=== PATIENT | male | born 1950 | race Caucasian/White ===

== ENCOUNTER 2018-03-02 11:15 | Outpatient (CLI) | payer MEDICARE ==
[2018-03-02] MEDS ORDERED: Iopamidol 370 76% 100 ML VIAL ONE (14:52)
--- NOTE | 2018-03-02 15:52 | PET ---
PET CT: 03/02/18 HISTORY: 68-year-old male with localized swelling, mass, lump in the neck; dysphagia. Head and neck cancer avery gnosis and initial staging. TECHNIQUE: PET scan with CT attenuation correction was performed from the vertex through the proximal thighs fol lowing the intravenous administration of 12.3 millicuries of 15-fludeoxyglucose in the right hand. Im aging was performed after an uptake interval of 59 minutes. COMPARISON/CORRELATION: None. FINDINGS: There is a hypermetabolic mass in the right supraglottic region with an SUV of 21. Associated hyperme tabolic lymph nodes are seen in the neck with an SUV of 5.7 in the right level II, 10.2 in the right level III, 3.7 in the right level Va and 4.7 in the left level III lymph nodes. There is also increased linear uptake in the posterior aspect of the tongue base with an SUV of 4.6. No gonzalo hypermetabolism is seen in the chest, axillae, abdomen or pelvis. No hypermetabolic pulmonar y nodules, liver, adrenals, or skeletal lesions are seen. There is physiologic activity in the GI and tracts and the brain. The CT scan used for attenuation correction demonstrates no evidence of pleural effusions or ascites. IMPRESSION: 1. 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 2. Increased linear uptake in the posterior tongue base should be evaluated with direct visualiz ation. POS: [facility]
--- NOTE | 2018-03-02 16:08 | CT ---
CONTRAST ENHANCED CT IMAGES SOFT TISSUE NECK 03/02/18 HISTORY: Neck swelling. Contrast enhanced CT of the soft tissue neck obtained. IV contrast was given. There is an area of ulceration and enhancement in the right piriform sinus extending inferiorly into the right supraglottic region. This lesion has definite area of enhancement and ulceration. Extensive bilateral lymphadenopathy seen. There is approximately 1.8 cm partially necrotic right level II (ju gulodigastric) lymph node. Additional right level Va 1.7 cm lymph node with central necrosis also see n. Additional abnormal lymphadenopathy seen in the left level III lymph node chain. Additionally mild ly enlarged left level II lymph node is also seen. IMPRESSION: Ulcerated pharyngeal mucosal based right piriform sinus and supraglottic mass with definite right lev el II and level Va abnormal partially necrotic pathologic lymph nodes. Additional enlarged lymph node s also seen in the left level II and level III lymph node chains. There is also bilateral carotid proximal ICA atherosclerotic plaques concerning for carotid disease. POS: [facility]
== END 2018-03-02 11:16 | disposition home or self-care (01) ==
LOC: PET 11:15 → CT 11:16
PROVIDERS: ATTEND Otolaryngology Plastic Surgery within the Head & Neck
DX: R22.1 Localized swelling, mass and lump, neck (principal); R13.12 Dysphagia, oropharyngeal phase; R22.0 Localized swelling, mass and lump, head; H92.01 Otalgia, right ear; R49.0 Dysphonia; J39.2 Other diseases of pharynx; I65.23 Occlusion and stenosis of bilateral carotid arteries; C32.2 Malignant neoplasm of subglottis; C77.0 Secondary and unspecified malignant neoplasm of lymph nodes of head, face and neck
CPT/HCPCS: 70491; 78815; 82565; A9552

== ENCOUNTER 2018-03-27 12:28 | Outpatient (CLI) | payer MEDICARE | END 2018-03-27 12:29 | disposition home or self-care (01) | LOC: LABBT 12:28 | PROVIDERS: ATTEND Surgery | DX: Z01.810 Encounter for preprocedural cardiovascular examination (principal); C76.0 Malignant neoplasm of head, face and neck | CPT/HCPCS: 93005; 93010 ==

== ENCOUNTER 2018-03-31 09:32 | Observation (INO) | payer MEDICARE ==
[2018-03-27 12:31] VITALS: BMI 28.5
[2018-03-31] MEDS ORDERED: CEFAZOLIN/Water 2 GM/20 ML SYRINGE ONE (09:57)
[2018-03-31] MEDS ORDERED: Bupivacaine/Epinephrine 0.25% 30 ML VIAL ONE (11:28)
[2018-03-31] MEDS ORDERED: Lidocaine 2% PF 5 ML VIAL ONE (11:28)
[2018-03-31] MEDS ORDERED: PROPOFOL 20 ML ONE (11:58)
[2018-03-31] MEDS ORDERED: Fentanyl 100 MCG/2 ML VIAL ONE ×2 (13:08→13:40)
[2018-03-31] MEDS ORDERED: Lidocaine 1% PF 5 ML VIAL ONE (13:09)
[2018-03-31] MEDS ORDERED: PROPOFOL 200 MG/20 ML VIAL ONE (13:09)
[2018-03-31] MEDS ORDERED: Ondansetron PF 4 MG/2 ML Vial ONE (13:09)
--- NOTE | 2018-03-31 13:56 | RAD ---
SINGLE VIEW CHEST: Date: 03/31/18 COMPARISON: 07/02/16. HISTORY: MediPort placement. FINDINGS: Single view of the chest shows enlarged but stable cardiomediastinal silhouette. The pacemaker is unc hanged in position. There is a right IJ MediPort with its tip in the superior vena cava. No pneumotho rax is seen. IMPRESSION: Status post MediPort placement without evidence of complication. POS: [facility]
[2018-03-31] MEDS ORDERED: HYDROcodone/Acetaminophen 10/325 mg Tablet PO PRN (14:06)
[2018-03-31] MEDS ORDERED: hydrALAZINE 20 MG/ML VIAL SLOW IVP PRN (14:06)
[2018-03-31] MEDS ORDERED: Dextrose 5% in Water 1,000 ML IV PRN (14:06)
[2018-03-31] MEDS ORDERED: Ondansetron PF 4 MG/2 ML Vial IVP PRN (14:06)
[2018-03-31] MEDS ORDERED: Promethazine HCl 25 MG/ML VIAL IM PRN (14:06)
[2018-03-31] MEDS ORDERED: Dextrose 50% Abboject 50 ML SYRINGE SLOW IVP PRN (14:06)
[2018-03-31] MEDS: Sodium Chloride 0.9% 1,000 ML IV SCH (14:59)
[2018-03-31] MEDS: Nicotine 21 MG PATCH TD SCH (15:00)
[2018-03-31] MEDS: Carvedilol 3.125 MG TAB PO SCH (17:11)
[2018-03-31] MEDS: HYDROcodone/Acetaminophen 10/325 mg Tablet PO PRN ×2 (17:12→21:33)
[2018-03-31] MEDS: Morphine 2 MG/ML SYRINGE SLOW IVP PRN ×3 (18:25→22:59)
--- NOTE | 2018-03-31 19:39 | OP ---
DATE OF PROCEDURE: 03/31/2018 PREOPERATIVE DIAGNOSES: 1. Head and neck cancer. 2. Protein-calorie malnutrition. POSTOPERATIVE DIAGNOSES: 1. Head and neck cancer. 2. Protein-calorie malnutrition. PROCEDURES: 1. Tunneled central line subcutaneous port (MediPort, CT injectable). 2. Percutaneous endoscopic gastrostomy via EGD (PEG tube). SURGEON: Kam Campbell MD ANESTHESIA: General. ESTIMATED BLOOD LOSS: Minimal. COMPLICATIONS: None. SPECIMEN: None. FINDINGS: Tip of the catheter is at the atriocaval junction. DESCRIPTION OF PROCEDURE: The patient was taken to the operating room and placed supine on the table . After general anesthetic was obtained, bilateral neck and chest were prepped and draped in a steri le fashion. Local anesthetic was infiltrated over the right intrajugular vein. Intrajugular vein ca nnulated using a 22-gauge finder needle, followed by a Seldinger needle. Wire was passed into the barkley perior vena cava under fluoroscopy guidance. A stab incision was made at the wire entrance site. A separate 3-cm incision was made in the right upper chest. Subcutaneous pocket made below the lower i ncision. Tubing for the MediPort tunneled from the inferior to superior incision. Introducer sheath was placed over the wire under fluoroscopy guidance into the superior vena cava under no tension. T he dilator and wire were removed. The end of the catheter shredded into the sheath and the sheath wa s peeled away. The tip of the catheter was at the atriocaval junction. MediPort tubing cut to fit t he MediPort at the lower incision, connected to the MediPort, which was sewn to the chest wall and barkley bcutaneous pocket using Prolene. MediPort flushes and draws blood without difficulty, flushed with a heparin flush. The wounds were irrigated and closed using 3-0 Vicryl, 4-0 Monocryl, and Dermabond. Next, EGD scope was passed into the esophagus, stomach to the level of the duodenum without obstructi on, withdrawn into the proximal stomach, pushing left subcostal transmits through the abdominal wall. There was good transillumination of light. The upper abdomen was prepped and draped. A small 1-cm incision was made in the left subcostal area. A needle was placed into the stomach and a wire was p assed, which was snared from the scope. The wire was brought out through the mouth, connected to the PEG. The PEG was then pulled through the oropharynx, esophagus, stomach out the gastrotomy. PEG tu be is tight against the abdomen, held in place using closed connector. Kensett tree adaptor and cl amp were placed. EGD scope was passed back into the stomach to good positioning without injury . Antibiotic ointment was placed at the exit site. The patient is en route to recovery in stable co ndition. All sponge counts, needle counts, lap counts are correct.
[2018-03-31] MEDS: Famotidine 20 MG TAB PO SCH (20:29)
[2018-03-31] MEDS: Furosemide 20 MG TAB PO SCH (20:29)
[2018-03-31] MEDS: Famotidine/PF 20 mg/2ml Vial SLOW IVP SCH (21:24)
[2018-04-01] MEDS: HYDROcodone/Acetaminophen 10/325 mg Tablet PO PRN ×3 (01:54→10:51)
[2018-04-01] MEDS: Morphine 2 MG/ML SYRINGE SLOW IVP PRN (04:05)
[2018-04-01] MEDS: Sodium Chloride 0.9% 1,000 ML IV SCH (04:42)
[2018-04-01] MEDS: Furosemide 20 MG TAB PO SCH (07:51)
[2018-04-01] MEDS: Carvedilol 3.125 MG TAB PO SCH (07:51)
[2018-04-01] MEDS: Famotidine 20 MG TAB PO SCH (07:51)
[2018-04-01] MEDS: Famotidine/PF 20 mg/2ml Vial SLOW IVP SCH (08:20)
[2018-04-01] MEDS ORDERED: Clopidogrel Bisulfate 75 MG TAB PO SCH (09:00)
[2018-04-01] MEDS ORDERED: Potassium [Potassium] 99 MG TAB PO SCH (09:00)
[2018-04-01 12:06] VITALS: BP 135/71; TEMP 97.8
[2018-04-01] MEDS: Nicotine 21 MG PATCH TD SCH (14:57)
--- NOTE | 2018-04-01 17:17 | HP ---
Parmjit Sharp was seen for Dr. White in coverage. HISTORY OF PRESENT ILLNESS: Mr. Sharp is doing well. He is tolerating his diet. He wants regular food. He is ready to go home. He has not had any nausea or vomiting. Pain is well controlled. PHYSICAL EXAMINATION: LUNGS: Clear to auscultation. CARDIAC: Regular rate and rhythm without murmur or gallop. ABDOMEN: Soft, nontender. MediPort site healthy, PEG tube site healthy. EXTREMITIES: Unremarkable. VITAL SIGNS: 97.8, 57, 135/71. No laboratories ordered. ASSESSMENT AND PLAN: Doing well after MediPort and PEG tube placement. The patient has been educate d of his PEG tube care. He will be discharged home with followup with Dr. Campbell in a week or two.
[2018-04-02] MEDS ORDERED: GARLIC 1500 MG PO SCH (09:00)
[2018-04-02] MEDS ORDERED: Turmeric Root Extract [Turmeric] 500 MG PO SCH (09:00)
== END 2018-04-01 15:40 | disposition home or self-care (01) ==
LOC: SDC 09:32 → SURG A 14:03 → INTOOBSV 14:03
PROVIDERS: ADMIT Surgery; ATTEND Surgery
PROC: 0JH60XZ Insertion of Tunneled Vascular Access Device into Chest Subcutaneous Tissue and Fascia, Open Approach (ICD-10-PCS; principal; 2018-03-31)
PROC: 02HV33Z Insertion of Infusion Device into Superior Vena Cava, Percutaneous Approach (ICD-10-PCS; 2018-03-31)
PROC: B518ZZA Fluoroscopy of Superior Vena Cava, Guidance (ICD-10-PCS; 2018-03-31)
PROC: 0DH63UZ Insertion of Feeding Device into Stomach, Percutaneous Approach (ICD-10-PCS; 2018-03-31)
DX: C76.0 Malignant neoplasm of head, face and neck (principal); E46 Unspecified protein-calorie malnutrition; M10.9 Gout, unspecified; I51.9 Heart disease, unspecified; Z79.899 Other long term (current) drug therapy; Z88.8 Allergy status to other drugs, medicaments and biological substances; Z79.82 Long term (current) use of aspirin; Z68.28 Body mass index [BMI] 28.0-28.9, adult
CPT/HCPCS: 36561; 43246; 71045; 96361 ×2; 96374; 96376 ×2; C1788; G0378; J1642; J2001; J2270; J2405; J2704; J3010

== ENCOUNTER 2018-04-18 10:23 | Outpatient (CLI) | payer MEDICARE ==
--- NOTE | 2018-04-18 12:30 | RAD ---
ABDOMEN 1 VIEW: HISTORY: A 68-year-old male with a history of leaking PEG tube. FINDINGS: Percutaneous gastrostomy tube is noted in place. No large or small bowel obstruction. No evidence f or significant free intraperitoneal air. No overt calculus. IMPRESSION: PEG tube in place. POS: [facility]
[2018-04-18] MEDS ORDERED: GASTROGRAFIN 30 ML BOT ONE (13:29)
== END 2018-04-18 10:24 | disposition home or self-care (01) ==
LOC: RAD 10:23
PROVIDERS: ATTEND Surgery
DX: K94.23 Gastrostomy malfunction (principal)
CPT/HCPCS: 74018

== ENCOUNTER 2018-04-19 11:46 | Emergency (ER) | payer MEDICARE | END 2018-04-19 13:01 | disposition home or self-care (01) | LOC: ERS 11:46 | DX: Z53.8 Procedure and treatment not carried out for other reasons (principal) | CPT/HCPCS: B4087 ==

== ENCOUNTER 2018-05-18 11:26 | Day surgery (SDC) | payer MEDICARE ==
[2018-05-18] MEDS: diphenhydrAMINE 25 MG CAP PO SCH (13:02)
[2018-05-18] MEDS: Acetaminophen 500 MG TAB PO SCH (13:02)
[2018-05-18] MEDS ORDERED: Loperamide HCl 2 MG CAP PO PRN (14:13)
[2018-05-18] MEDS: Loperamide HCl 2 MG CAP PO SCH (17:09)
[2018-05-18 17:39] LABS: Hemoglobin 8.8 g/dL (14.0-18.0)
[2018-05-18 21:34] VITALS: BP 132/69; TEMP 98.6
[2018-05-18 22:40] LABS: Band 24 % (5-11); Hemoglobin 10.2 g/dL (14.0-18.0); Lymphocytes 10 % (21-51); MDiff Complete? YES; Mean Corpuscular HGB CONC 35.8 g/dL (32.0-36.0); Mean Corpuscular Hemoglobin 31.6 pg (27.0-31.0); Mean Corpuscular Volume 88.4 fL (78.0-98.0); Mean Platelet Volume 6.9 fL (7.4-10.4); Monocytes 4 % (0-10); Neutrophil 62 % (42-75); PLT Morphology Comment Appears Adequate; Platelet Count 143 thou/uL (130-400); RBC Distribution Width 13.1 % (11.5-14.5); Red Blood Cell (RBC) Count 3.23 mill/uL (4.70-6.10); White Blood Cell (WBC) Count 3.1 thou/uL (4.8-10.8)
== END 2018-05-18 22:06 | disposition home or self-care (01) ==
LOC: ONC/OP 11:26 → ONC 11:32 → ONC/OP 22:06
PROVIDERS: ATTEND Internal Medicine Hematology & Oncology
PROC: 30233N1 Transfusion of Nonautologous Red Blood Cells into Peripheral Vein, Percutaneous Approach (ICD-10-PCS; principal; 2018-05-18)
DX: D64.9 Anemia, unspecified (principal); D69.6 Thrombocytopenia, unspecified
CPT/HCPCS: 36415; 36430; 80053; 82248; 83615; 84100; 84550; 85014; 85018; 86850; 86900; 86901; P9016

== ENCOUNTER 2018-05-28 18:48 | Inpatient (IN) | payer MEDICARE ==
[2018-05-28] MEDS ORDERED: Ondansetron PF 4 MG/2 ML Vial ONE (19:19)
[2018-05-28 19:20] LABS: #Eosinphils 0.1 thou/uL (0.0-0.7); #Lymphocytes 0.5 thou/uL (1.20-3.40); #Monocytes 0.8 thou/uL (0.11-0.59); #Neutrophils 6.7 thou/uL (1.40-6.50); %Basophils 0.3 % (0.0-1.0); %Eosinophils 1.1 % (0.0-10.0); %Lymphocytes 6.1 % (21.0-51.0); %Neutrophils 82.6 % (42.0-75.0); Hemoglobin 6.8 g/dL (14.0-18.0); Mean Corpuscular HGB CONC 35.2 g/dL (32.0-36.0); Mean Corpuscular Hemoglobin 31.6 pg (27.0-31.0); Mean Corpuscular Volume 89.9 fL (78.0-98.0); Mean Platelet Volume 6.4 fL (7.4-10.4); Platelet Count 207 thou/uL (130-400); RBC Distribution Width 13.7 % (11.5-14.5); Red Blood Cell (RBC) Count 2.15 mill/uL (4.70-6.10); White Blood Cell (WBC) Count 8.1 thou/uL (4.8-10.8)
[2018-05-28 19:28] LABS: INR-International Normal Ratio 1.2; PTT 45.3 SEC (22.9-36.1); Prothrombin Time 14.9 SEC (12.0-14.7)
[2018-05-28 19:43] LABS: ALT (SGPT) 8 U/L (8-55); AST (SGOT) 12 U/L (5-34); Albumin 3.1 g/dL (3.4-4.8); Alkaline Phosphatase 55 U/L (40-150); Anion Gap 13 mmol/L (10-20); BUN (Urea Nitrogen) 63 mg/dL (8.4-25.7); Bilirubin, Total 0.3 mg/dL (0.2-1.2); Calc. Creatinine Clearance 0 mL/min (70-130); Calcium 8.9 mg/dL (7.8-10.44); Carbon Dioxide 29 mmol/L (23-31); Chloride 93 mmol/L (98-107); Estimated GFR-MDRD 38; Globulin 2.8 g/dL (2.4-3.5); Glucose 104 mg/dL (80-115); Protein, Total 5.9 g/dL (5.8-8.1); Sodium 131 mmol/L (136-145)
--- NOTE | 2018-05-28 20:25 | PDOC.FPRHP ---
- History of Present Illness Chief Complaint: Weakness History of Present Illness: This is a 68 yo male with a pmh of CAD, CHF, malingnancy of piriform sinus who presents to the ed with a cc of worsening weakness. He states that his symptoms started on Tuesday. At that point, he was diagnosed with dehydration and received IFVs. His generalized weakness continued through the weekend. He also reports 2 dark red stools today that concerned him and brought him in today. He denies spitting up any blood and only reports a cough 2/2 to radiation. 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 He currently has a peg tube due to this condition. ED Course: zofrtracee 1L NS 1 of 2 units of blood - Allergies/Adverse Reactions Allergies Allergy/AdvReac Type Severity Reaction Status Date / Time cilostazol [From Pletal] Allergy Rash Verified 03/27/18 12:31 - Home Medications Medication Instructions Recorded Confirmed Type Aspirin [Aspirin Chewable Tablet] 81 mg PO DAILY 07/02/16 05/29/18 History Clopidogrel Bisulfate [Plavix] 75 mg PO DAILY 07/02/16 05/29/18 History Carvedilol [Coreg] 3.125 mg PO BID-WM #60 tab 07/06/16 05/29/18 Rx Ipratropium/Albuterol Sulfate 3 ml NEB [id number] #30 neb 07/06/16 05/29/18 Rx [DuoNeb] Nicotine [Nicoderm CQ] 21 mg TD 1500 #30 patch 07/06/16 05/29/18 Rx Furosemide [Lasix] 20 mg PO BID 03/27/18 05/29/18 History Garlic 1,500 mg PO DAILY 03/27/18 05/29/18 History Potassium 1 tab PO DAILY 03/27/18 05/29/18 History Turmeric Root Extract [Turmeric] 500 mg PO DAILY 03/27/18 05/29/18 History - History PMHx: HFrEF s/p pacemaker, CAD s/p 2 stents, malignancy of piriform sinus PSHx: pacemaker, peg tube, mediport FHx: noncontributory Social: Current tobacco use, denies alcohol or drug use - Review of Systems General: reports: fatigue. denies: fever/chills, weight/appetite/sleep changes Eyes: denies: eye pain, vision changes ENT: denies: nasal congestion, rhinorrhea Respiratory: reports: cough, exercise intolerance. denies: congestion, shortness of breath Cardiovascular: denies: chest pain, palpitation, edema Gastrointestinal: reports: nausea, GI bleeding (dark loose stools). denies: vomiting, diarrhea Skin: denies: rashes, lesions Musculoskeletal: denies: pain, tenderness Neurological: denies: numbness, syncope Psychological: denies: anxiety, depression - Vital signs BP: 99/56 HR: 91 RR: 20 Tmax: 98.7 Pox: 97% on ra Wt: 77 kg - Physical Exam Constitutional: NAD, awake, alert and oriented HEENT: normocephalic and atraumatic, MMM, other (Pt has no ulcers or sites of active bleeding in his oropharynx, poor dentition) Neck: trachea midline, no JVD, other (Skin hypopigmentation consistent with radiation therapy) Chest: no-tender to palpation Heart: RRR, normal S1/S2, no murmurs/rubs/gallops Lungs: CTAB, no respiratory distress, good air movement Abdomen: soft, non-tender, bowel sounds present, no masses/distention Musculoskeletal: normal structure, normal tone Neurological: CN II-XII intact, normal sensation Skin: good turgor, capillary refill <2 seconds Psychiatric: normal mood and affect Additional comment: ESTUARDO showed good sphincer tone, no internal or external hemorroids, and dark stool. FMR H&P: Results - Labs Result Diagrams: 06/01/18 04:45 06/01/18 04:45 Lab results: WBC 8.1 thou/uL (4.8-10.8) 05/28/18 19:04 Hgb 6.8 g/dL (14.0-18.0) L 05/28/18 19:04 Hct 19.3 % (42.0-52.0) L 05/28/18 19:04 MCV 89.9 fL (78.0-98.0) 05/28/18 19:04 Plt Count 207 thou/uL (130-400) 05/28/18 19:04 Neutrophils % 82.6 % (42.0-75.0) H 12/23/18 19:04 Sodium 131 mmol/L (136-145) L 05/28/18 19:00 Potassium 4.0 mmol/L (3.5-5.1) 05/28/18 19:00 Chloride 93 mmol/L (98-107) L 05/28/18 19:00 Carbon Dioxide 29 mmol/L (23-31) 05/28/18 19:00 BUN 63 mg/dL (8.4-25.7) H 05/28/18 19:00 Creatinine 1.79 mg/dL (0.7-1.3) H 05/28/18 19:00 Glucose 104 mg/dL (80-115) 05/28/18 19:00 Calcium 8.9 mg/dL (7.8-10.44) 05/28/18 19:00 Total Bilirubin 0.3 mg/dL (0.2-1.2) 05/28/18 19:00 AST 12 U/L (5-34) 05/28/18 19:00 ALT 8 U/L (8-55) 05/28/18 19:00 Alkaline Phosphatase 55 U/L (40-150) 05/28/18 19:00 Serum Total Protein 5.9 g/dL (5.8-8.1) 05/28/18 19:00 Albumin 3.1 g/dL (3.4-4.8) L 05/28/18 19:00 INR 1.2 Additional comment: Stool occult blood positive - EKG Interpretation EKG: NSR, PVCs - Radiology Interpretation Chest x-ray Status: report reviewed by me (no acute cardiopulmonary process) FMR H&P: A/P - Problem List (1) Acute gastrointestinal bleeding Current Visit: Yes Status: Resolved Code(s): K92.2 - GASTROINTESTINAL HEMORRHAGE, UNSPECIFIED (2) Symptomatic anemia Current Visit: Yes Status: Resolved Code(s): D64.9 - ANEMIA, UNSPECIFIED (3) Malignant tumor of pyriform sinus Current Visit: Yes Status: Acute Code(s): C12 - MALIGNANT NEOPLASM OF PYRIFORM SINUS (4) CHF (congestive heart failure) Current Visit: No Status: Chronic Code(s): I50.9 - HEART FAILURE, UNSPECIFIED (5) Tobacco abuse Current Visit: No Status: Acute Code(s): Z72.0 - TOBACCO USE (6) HLD (hyperlipidemia) Current Visit: No Status: Chronic Code(s): E78.5 - HYPERLIPIDEMIA, UNSPECIFIED - Plan This is a 68 yo male with a pmh of CAD, HFrEF, malingnancy of piriform sinus Acute GI bleed likely upper GI source -Admit to CCU due to hypotension and present after appropriate resuscitative measures -FOBT positive, Hemoglobin -Transfuse 2 units, recheck H/H -Bolus fluids -Right IJ placed due to consistent low pressures despite fluid resuscitation, will consider pressors if blood pressure continues to decrease -Consult Dr. Gonzalez GI -Diet: NPO -Monitor VS and adjust management Malignancy of piriform sinus -Consult Dr. Kohler CAD -Continue home medications CHF -Hold medications until BP resolves -EF almost 2 years ago, 30-35% -We will monitor for signs of fluid overload while maintaining his blood pressure Code: Full Prophylaxis: Protonix Family: none at bedside Disposition: home in 4-5 days FMR H&P: Upper Level - Pertinent history 68M presents for 1 day of melanotic stool x2, associated with fatigue. His history is pertinent for undergoing chemo/radiation therapy for piriformis malignancy in his neck. He was seen 1 day prior with Hgb of 10.4 which dropped to 6.8 today. His systolic pressure was between 70-80 upon arrival to ER. After 1 L NS bolus, his systolic pressure went to between 80-100. He is currently getting 1 PRBC with 1 more afterward. ER staff exam found no active bleeding per rectum, but FOBT was positive. - Pertinent findings Gen: Alert, oriented when aroused. Otherwise, patient prefers to keep eye closed HEENT: Normocephalic, moist mucosal membrane, white sclera, trachea midline. Neck is discolored, likely from radiation therapy. No obvious bleeding in oral cavity and pharynx. CV: RRR with no apparent m/g/r. He has a mediport on right chest. Resp: CTA bilaterally GI: Normoactive, soft, non tender. PEG was seen. Ext: No edema noted Neuro: Answer question appropriately, no obvious focal weakness - Plan Date/Time: 05/28/182024 I, [Gordy Ly], have evaluated this patient and agree with findings/plan as outlined by director internal control resident. Pertinent changes/additions are listed here. 1. Acute symptomatic GI bleed - Drop of almost 4 hgb over 24 hour. FOBT positive. - Symptomatic with fatigue, hypotension. - In patient with neck malignancy and recent chemo/radiation, suspect upper GI bleed - Consult GI. Start PRBC transfusion, threshold of 8 hgb . Protonix 2. Piriformis Sinus Malignancy - Consult Dr. Kohler, patient's oncologist 3. CHF with rEF - Last echo found EF of 30-35%. Patient with AICD - Will transfuse cautiously to prevent overload. 4. HTN - Hx of HTN. Hold BP med at this time 5. Hx CAD - Transfuse threshold at 8. Continue home med when stabilized 6. Tobacco abuse - Advise cessation 7. Historical COPD - Patient apparently not taking medication but previous admission discussed COPD. Will supplement with O2 as needed and add neb treatment if symptomatic. Addendum - Attending - Attending Attestation Date/Time: 06/01/18 [id number] I personally evaluated the patient and discussed the management with Dr. Griffin on 05/28/18. I agree with the History, Examination, Assessment and Plan documented above with any addition or exceptions noted below. 68 y.o. WM with h/o HFrEF s/p AICD, CAD s/p 2 stents, malignancy of piriform sinus
--- NOTE | 2018-05-28 20:41 | RAD ---
PORTABLE CHEST: HISTORY: Generalized weakness. Head and neck cancer. FINDINGS: Heart size is within normal limits. An internal defibrillator device is present. A right-sided Medi port catheter is noted. The lungs are clear of infiltrates. No signs of failure. IMPRESSION: No active intrathoracic disease. POS: [facility]
[2018-05-29 00:12] LABS: Hemoglobin 8.7 g/dL (14.0-18.0)
[2018-05-29 00:33] LABS: Bilirubin Negative (Negative); Blood, Urine Negative (Negative); Clarity CLEAR (Clear); Glucose, Urine (Dipstick) Negative (Negative); Leukocyte Negative (Negative); Nitrite Negative (Negative); Protein, Urine (Dipstick) Negative (Neg-Trace); Specific Gravity, Urine 1.014 (1.002-1.036); Urobilinogen 0.2 mg/dL (0.2-1.0)
[2018-05-29] MEDS ORDERED: Acetaminophen 650 MG Suppository PR PRN (00:47)
[2018-05-29] MEDS ORDERED: Ondansetron PF 4 MG/2 ML Vial IVP PRN (00:47)
[2018-05-29] MEDS ORDERED: Sodium Chloride 0.9% 1,000 ML IV SCH (00:47)
[2018-05-29] MEDS ORDERED: Pantoprazole 40 MG VIAL ONE (00:50)
--- NOTE | 2018-05-29 03:32 | CON ---
DATE OF CONSULTATION: REASON FOR CONSULT: Melena. HISTORY OF PRESENT ILLNESS: Mr. Sharp is a 68-year-old male with history of throat cancer, for which he is receiving radiation therapy, he has been weak and has not been able to eat much and [facility] Apparently, he had a transfusion on of 2 units for dropped hemoglobin of 8, it came back up to 10, but with worsening weakness, he came to the emergency room. He apparently had two dark stools today which were black and brought to the emergency room. He denies spitting up blood. He has had a cough without any shortness of breath. He denies any chest pain. He has 1 more radiation therapy for his piriform sinus cancer which was diagnosed on 04/05. PAST MEDICAL HISTORY: Coronary artery disease, previous stents, previous pacemaker and defibrillator placement, malignancy of piriform sinus. He also had peripheral vascular stents placed. Last echo from 07/03/2016 showed EF of 30% to 35%, [id number] MR, and severe TR. PAST SURGICAL HISTORY: Pacemaker, PEG tube, and Mediport. FAMILY HISTORY: Noncontributory. SOCIAL HISTORY: Tobacco use. Denies alcohol or drugs. REVIEW OF SYSTEMS: Negative for chest pain, shortness of breath. Positive for fatigue, poor p.o. intake, throat pain. Denies shortness of breath. Has nausea, black stools. On arrival, his pressure was in the 90s, dropped to the 70s, after he received a liter of fluid it came back up in the low 90s; heart rate is 91, he has been afebrile, respirations 20, and pulse ox 97%. MEDICATIONS: At jail include; 1. Aspirin 81 mg a day. 2. Plavix 75 mg a day. 3. Carvedilol. 4. Ipratropium bromide. 5. Nicotine patch. 6. Furosemide. 7. Garlic. 8. Potassium. 9. Turmeric. He has received 2 units of blood here, some IV fluids. He has not received a PPI yet. PHYSICAL EXAMINATION: VITAL SIGNS: Blood pressure 89/55, pulse 88, respirations 16, the patient is afebrile, and O2 saturations 95%. He has Hep-Locked IV. HEENT: His oropharynx shows no overt lesions or blood. I cannot evaluate his throat as he cannot open his mouth wide. NECK: There is no stoma adenopathy in the neck. Some radiation changes of the skin. LUNGS: Clear without crackles or rales. HEART: Regular rate and rhythm. ABDOMEN: Soft and nontender without rebound or guarding. EXTREMITIES: No clubbing, cyanosis, or edema. LABORATORY STUDIES: White count 8.1, hemoglobin was 6.8 on admission, it was 10.4 on 05/27, 8.7 at 2300 hours after 2 units of blood. Platelet count 207. INR 1.2. BUN and creatinine are 63 and 1.7, they are 41 and 2.3 on the , on they were 41 and 2.2 and on the , 36 and 1.5. Liver function tests are normal. Albumin 3.1, protein 5.1. ASSESSMENT: This is a 68-year-old gentleman who has radiation therapy for throat cancer. He get transfused 2 units on the . He has been taking NSAIDs. He is on no PPIs and he has been taking Plavix. He has had significant coronary artery disease, peripheral vascular disease, and heart failure. Presently, there are no signs of heart failure after 2 units of blood and a liter of fluid. He has had no bowel movement since admission. recommendations; 1. Start the Protonix. 2. Start IV fluids, 75 mL an hour. Watch for signs of heart failure IV fluids can be stopped. 3. He is very pale, I think it is reasonable to give 1 more unit of blood. We will plan for EGD at 8:00 a.m. after resuscitation is complete. If there are signs of acute upper gastrointestinal hemorrhage, he may have his throat looked at as this may be a source of bleeding with his radiation therapy and tonsillar cancer. Job ID: [id number]
[2018-05-29] MEDS: Sodium Chloride 0.9% 1,000 ML IV SCH ×3 (04:16→09:34)
[2018-05-29 05:49] LABS: #Eosinphils 0.1 thou/uL (0.0-0.7); #Lymphocytes 0.3 thou/uL (1.20-3.40); #Monocytes 0.6 thou/uL (0.11-0.59); #Neutrophils 4.4 thou/uL (1.40-6.50); %Basophils 0.5 % (0.0-1.0); %Eosinophils 1.8 % (0.0-10.0); %Lymphocytes 6.3 % (21.0-51.0); %Monocytes 11.7 % (0.0-10.0); %Neutrophils 79.7 % (42.0-75.0); Hemoglobin 7.9 g/dL (14.0-18.0); Mean Corpuscular HGB CONC 35.9 g/dL (32.0-36.0); Mean Corpuscular Hemoglobin 31.7 pg (27.0-31.0); Mean Corpuscular Volume 88.3 fL (78.0-98.0); Mean Platelet Volume 6.2 fL (7.4-10.4); Platelet Count 132 thou/uL (130-400); RBC Distribution Width 13.6 % (11.5-14.5); White Blood Cell (WBC) Count 5.5 thou/uL (4.8-10.8)
--- NOTE | 2018-05-29 07:56 | PDOC.FM ---
- Subjective Subjective: 68 yo male with HFrEF with pacemaker, CAD s/p stents, and malignancy of piriformis sinus who presented 05/28 with fatigue and two melenic stools admitted for an acute symptomatic GI bleed/anemia. Required central line overnight for persistent hypotension, however did not end up requiring pressors. Planning for scope today. - Objective MAR Reviewed: Yes Vital Signs & Weight: Vital Signs (12 hours) Temp Pulse Ox 05/29/18 07:11 97 05/29/18 07:00 98.5 F 05/29/18 04:47 98 05/29/18 04:41 97.9 F 05/29/18 00:47 98 Weight Weight 76.8 kg Most Recent Monitor Data Heart Rate from ECG 74 NIBP 119/55 NIBP BP-Mean 76 Respiration from ECG 14 SpO2 95 I&O: 05/28/18 05/29/18 05/30/18 06:59 06:59 06:59 Intake Total 328 Output Total 445 50 Balance -117 -50 Result Diagrams: 05/29/18 05:30 05/28/18 19:00 Phys Exam - Physical Examination Constitutional: NAD HEENT: PERRLA dry mm Respiratory: clear to auscultation bilateral Cardiovascular: RRR Gastrointestinal: soft Psychiatric: normal affect, A&O x 3 Skin: no rash Deviation from normal: pale Dx/Plan (1) CAD (coronary artery disease) Code(s): I25.10 - ATHSCL HEART DISEASE OF [place] CORONARY ARTERY W/O ANG PCTRS Status: Acute (2) Acute gastrointestinal bleeding Code(s): K92.2 - GASTROINTESTINAL HEMORRHAGE, UNSPECIFIED Status: Acute (3) Malignant tumor of pyriform sinus Code(s): C12 - MALIGNANT NEOPLASM OF PYRIFORM SINUS Status: Acute (4) Symptomatic anemia Code(s): D64.9 - ANEMIA, UNSPECIFIED Status: Acute (5) CHF (congestive heart failure) Code(s): I50.9 - HEART FAILURE, UNSPECIFIED Status: Acute (6) COPD exacerbation Code(s): J44.1 - CHRONIC OBSTRUCTIVE PULMONARY DISEASE W (ACUTE) EXACERBATION Status: Acute - Plan Plan: 68 yo male with HFrEF with pacemaker, CAD s/p stents, and malignancy of piriformis sinus who presented 05/28 with fatigue and two melenic stools admitted for an acute symptomatic GI bleed/anemia. Hosp day 1 1. Acute symptomatic GI bleed and anemia - hb 6.8-->8.7-->7.9, with 3 units prbcs and 3L NS, plan to transfuse an additional unit, consider six pack of platelets and ffp - FOBT positive. - GI consulted and planning for scope today. 2. Piriformis Sinus Malignancy - Dr. Kohler consulted - dysphagia, has PEG tube 3. CHF with rEF - Last echo found EF of 30-35% two years ago. Patient with AICD. - Will transfuse cautiously to prevent overload; will repeat echo 4. HTN - Hx of HTN, but currently hypotensive overnight. Central line placed, no pressors required. Will hold bp meds. 5. Hx CAD - Continue home med when stabilized 6. Tobacco abuse - Advise cessation 7. Historical COPD - Patient apparently not taking medication but previous admission discussed COPD. Will supplement with O2 as needed and add neb treatment if symptomatic. FULL CODE DVT prophylaxis: SCDs DISPO: guarded
[2018-05-29] MEDS ORDERED: KETAMINE 100 MG/ML (5ML VIAL) ONE (07:59)
[2018-05-29] MEDS ORDERED: Pantoprazole 40 MG VIAL IVP SCH (09:00)
--- NOTE | 2018-05-29 09:12 | RAD ---
PORTABLE CHEST 1 VIEW: Date: 05/29/18 Time: 0329 hours HISTORY: Central line placement. FINDINGS/IMPRESSION: There has been interval placement of a right internal jugular central line since exam of previous day with tip in the projection of SVC. No pneumothorax is seen. Remainder of exam is stable. POS: [facility]
[2018-05-29] MEDS ORDERED: Propofol 1,000 MG/100 ML VIAL IV ONE (09:22)
[2018-05-29] MEDS ORDERED: SYSTANE 3.5 GM TUBE EA EYE PRN (09:32)
[2018-05-29] MEDS ORDERED: Ventilator Sedation Protocol 1 EACH FS SCH (09:45)
--- NOTE | 2018-05-29 09:49 | PRG ---
DATE OF SERVICE: 05/29/2018 SERVICE: Pulmonary Medicine. INTERVAL HISTORY: The patient came back intubated. A large ulcer was identified in the stomach. It was cauterized. That being said, it was very pulsatile. As such, he is a very high risk for rebleed. Gastroenterology has recommended that we leave him on mechanical ventilation at least over the next 24 hours. In the event that he rebleeds, they are asking us to call a surgeon. Otherwise, there has been no interval change to his condition. PHYSICAL EXAMINATION: VITAL SIGNS: Afebrile. Pulse 75, blood pressure 104/39, respirations 12, saturation 97% on 23% FiO2, and PEEP of 5. GENERAL: The patient is intubated and sedated. HEENT: Normocephalic and atraumatic. Sclerae white. Conjunctivae pink. Oral mucosa is moist without lesions. LUNGS: Decent air entry. There is a slightly prolonged expiratory phase. No wheezing or crackles are appreciated. HEART: Normal rate and regular. ABDOMEN: Soft, nontender, and nondistended. Bowel sounds are positive. MUSCULOSKELETAL: No cyanosis or clubbing. No pitting in the bilateral lower extremities. NEUROLOGIC: Grossly nonfocal. ASSESSMENT: 1. Peptic ulcer disease with high-risk lesion for rebleed. 2. Acute blood loss anemia. 3. History of pyriform sinus cancer, status post radiation therapy to the head, neck, and PEG tube placement. DISCUSSION AND PLAN: The patient will remain on mechanical ventilation. We spent some time at bedside, optimizing his sedation and ventilator settings. He will remain in the ICU on mechanical ventilation for 24 hours. If he rebleeds, surgical consultation will be placed. Pulmonary Critical Care will continue to follow along in this location. CRITICAL CARE TIME: 30 minutes. Job ID: [id number]
[2018-05-29] MEDS: Pantoprazole 80 MG in Sodium Chloride 0.9% 100 ML IVP SCH ×2 (09:57→18:29)
--- NOTE | 2018-05-29 10:01 | RAD ---
PORTABLE CHEST 1 VIEW: Date: 05/29/18 Time: 0941 hours HISTORY: Respiratory failure. FINDINGS/IMPRESSION: Comparison made with exam at 0329 hours from the same date. Endotracheal tube has been placed in the interim with tip at the level of the clavicular heads. Remai nder of exam is otherwise stable. POS: MARÍA
--- NOTE | 2018-05-29 10:05 | CON ---
DATE OF CONSULTATION: 05/29/2018 SERVICE: Pulmonary Medicine. REASON FOR CONSULT: ICU patient. HISTORY OF PRESENT ILLNESS: The patient is a 68-year-old white male with past medical history significant for malignancy of the pyriform sinuses, status post radiation to the head and neck area, as well as PEG tube placement. He was in his usual state of health when he started having dark black sticky stools of one day duration. He presented to the emergency department and was discovered to be a little hypotensive. He was given a couple of units of blood. Hemoglobins were trended throughout the night, and he remained hemodynamically stable. He is being taken down for an EGD soon. Prior to this event, he did not have any fevers, chills, nausea, vomiting, diarrhea, abdominal discomfort, cough, or sputum production. He was otherwise in his usual state of health. PAST MEDICAL HISTORY: 1. Coronary artery disease. 2. Malignancy of the head and neck area. 3. Congestive heart failure. PAST SURGICAL HISTORY: 1. Pacemaker placement. 2. PEG tube placement. 3. Port catheter placement. FAMILY HISTORY: Noncontributory. SOCIAL HISTORY: Negative for current tobacco, alcohol, or illicit drug use. ALLERGIES: CILOSTAZOL. MEDICATIONS: List of his inpatient medications was reviewed. No updates were made. REVIEW OF SYSTEMS: General; head, ears, eyes, nose, and throat; cardiovascular; respiratory; GI; ; musculoskeletal; neurologic; and skin are negative except as mentioned in the HPI. PHYSICAL EXAMINATION: VITAL SIGNS: Afebrile, pulse 75, blood pressure 104/39, respirations 12, and saturation 97% on 2 L nasal cannula. GENERAL: The patient is awake and alert, in no apparent distress. LUNGS: Decent air entry. There is no prolonged expiratory phase. HEART: Normal rate, regular. ABDOMEN: Soft. Minimal tenderness to palpation in the epigastric region without rebound or guarding. : Alvarado catheter in place. NEUROLOGIC: Grossly nonfocal. LABORATORY DATA: WBC 5.5, hemoglobin 7.9, and platelets 132,000. INR 1.2. Creatinine 1.79, downtrending. Basic metabolic profile is otherwise unremarkable. Liver function studies are normal. Urinalysis is unremarkable. ASSESSMENT: 1. Acute blood loss anemia. 2. Acute kidney injury. 3. Chronic systolic heart failure (ejection fraction 30%). 4. History of pyriform sinus malignancy, status post radiation therapy to the head and neck, and percutaneous endoscopic gastrostomy tube placement. DISCUSSION AND PLAN: The patient is going down for an EGD. Depending on the type of lesion identified, the patient may be a candidate for transition out of the ICU to the medical unit. When he arrives on the floor, he will have no further requirements for inpatient Pulmonary/Critical Care opinion, and I will sign off. Pulmonary will continue to follow along in this location, however. 70 minutes have been devoted to this patient in various activities. I personally reviewed all imaging studies and laboratory data noted within this document. For fifty percent of this time, I was interacting with the patient at the bedside or coordinating care with the care team. For the remainder of the time I was immediately available to the patient in the hospital unit. Job ID: [id number] MTDD
[2018-05-29] MEDS ORDERED: Propofol BOLUS 1,000 MG/100 ML VIAL IV PRN (10:13)
[2018-05-29] MEDS ORDERED: DISCONTINUE PREVIOUS NARCOTIC PAIN MEDICATIONS AND BENZODIAZEPINES FS SCH (10:13)
[2018-05-29] MEDS ORDERED: Fentanyl BOLUS 250 ML IVPB PRN (10:13)
[2018-05-29] MEDS ORDERED: fentaNYL Citrate/PF 2,000 MCG in Sodium Chloride 0.9% 60 ML IV SCH (10:13)
[2018-05-29] MEDS ORDERED: Morphine 2 MG/ML SYRINGE SLOW IVP PRN (10:13)
[2018-05-29] MEDS: cefTRIAXone\\ROCEPHIN 2 GM in Sodium Chloride 0.9% 100 ML IVPB SCH (10:33)
[2018-05-29] MEDS: Lorazepam 2 MG/ML VIAL SLOW IVP PRN ×2 (10:33→17:34)
--- NOTE | 2018-05-29 11:03 | PRG ---
DATE OF SERVICE: 05/29/2018 Mr. Sharp is a 68-year-old white male patient, who was admitted with large upper GI bleed. He has just returned from EGD per Dr. Gonzalez. They found a large gastric ulcer that was pulsatile in nature and therefore, at risk for rebleeding. We will contact Surgery and monitor the patient closely. He is on mechanical ventilation and will remain so for at least the next 24 hours. Pulmonary Care is also following with us and we appreciate their input. We will go ahead and give him another unit of packed cells as well as a unit of FFP and platelets. Job ID: [id number]
[2018-05-29 11:48] LABS: Hemoglobin 8.1 g/dL (14.0-18.0)
[2018-05-29 15:04] LABS: Hemoglobin 6.8 g/dL (14.0-18.0)
--- NOTE | 2018-05-29 15:28 | CON ---
DATE OF CONSULTATION: REASON FOR CONSULTATION: Squamous cell carcinoma. HISTORY OF PRESENT ILLNESS: Mr. 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 He was HPV negative. He recently completed chemotherapy and radiation. His last cisplatin was on May 11. His last radiation was this past Tuesday. The patient has been receiving IV fluids in our clinic once or twice weekly. Since completing chemotherapy, he does have a feeding tube, but has only been tolerating 3 to 4 cans a day. He has had some odynophagia and weight loss during this process. He did require blood transfusion on May 18 secondary to immunosuppression as he denied any evidence of bleeding. Yesterday evening, he presented to the emergency room with complaints of dark stools. He had no hemoptysis. His hemoglobin was 6.8 down from 10.4 the day prior. He was hypotensive; although, he has been chronically low since radiation, averaging low 100s/50s. This morning, he went for endoscopic studies, where they found a large ulcerative area that was cauterized. He required mechanical ventilation, then remains on the vent at this time. History was obtained from review of medical records. PAST MEDICAL HISTORY: 1. 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 2. Coronary artery disease. 3. COPD. 4. Long history of tobacco and alcohol use. PAST SURGICAL HISTORY: 1. Cardiac stents. 2. Mitral valve clips. 3. Pacemaker. 4. MediPort. ALLERGIES: NO KNOWN DRUG ALLERGIES. HOME MEDICATIONS: 1. Carvedilol 6.25 mg two p.o. daily. 2. Lasix 40 mg two daily. 3. Tramadol p.r.n. FAMILY HISTORY: Brother had throat cancer. SOCIAL HISTORY: , has 2 children. Current everyday smoker, [id number] history. No alcohol or illicit drug use. REVIEW OF SYSTEMS: Unable to obtain secondary to mechanical ventilation. PHYSICAL EXAMINATION: VITAL SIGNS: Temperature is 97.9, pulse is 67, respiratory rate 16, blood pressure is 105/62. He is on 23% FiO2. GENERAL: Sedated gentleman, in no acute distress. HEENT: He has an NG tube in his naris and ET tube in his mouth. CV: Regular rate and rhythm. LUNGS: Diminished anteriorly. ABDOMEN: Soft. He has a feeding tube in his left upper quadrant. : He has a Alvarado catheter in place with yellow urine. EXTREMITIES: No clubbing, cyanosis, or edema. SKIN: He has a MediPort in place. There is no rash. HEMATOLOGIC: No petechiae or purpura. NEUROLOGIC: The patient is sedated with propofol. LABORATORY DATA: Pertinent labs and x-rays: Current WBCs are 5.5, hemoglobin 8.1, hematocrit 22.7, platelet counts are 132,000, 79% neutrophils, 6% lymphocytes. PT is 14.9, INR is 1.2, PTT is 45.3. Sodium is 131, potassium is 4.0, chloride 93, CO2 is 29, BUN is 63, creatinine 1.79, calcium is 8.9. Bilirubin is 0.3, AST is 12, ALT is 8, alkaline phosphatase 55, serum total protein 5.9, albumin 3.1, and globulin 2.8. Urine is negative. ASSESSMENT: 1. 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 2. Upper gastrointestinal bleed with large gastric ulcer. DISCUSSION: The patient has been transfused. We will continue to monitor his CBC. He has been hydrated and given tube feeds. Appreciate GI and Critical Care Medicines management. We will follow along with his hospital course. We are here to assist if there are any questions. Thank you for the consult. We will follow him remotely. Job ID: [id number]
[2018-05-29] MEDS ORDERED: EPINEPHrine 1 MG/10 ML Abboject SYRINGE ONE (16:23)
[2018-05-29] MEDS ORDERED: Succinylcholine Chloride 20 MG/ML 10 ml SYRINGE FS ONE (16:23)
[2018-05-29 18:26] LABS: Hemoglobin 8.2 g/dL (14.0-18.0); Mean Corpuscular Hemoglobin 31.5 pg (27.0-31.0); Mean Corpuscular Volume 87.5 fL (78.0-98.0); Platelet Count 181 thou/uL (130-400); RBC Distribution Width 13.2 % (11.5-14.5); Red Blood Cell (RBC) Count 2.61 mill/uL (4.70-6.10); White Blood Cell (WBC) Count 4.3 thou/uL (4.8-10.8)
[2018-05-29] MEDS: Propofol 1,000 MG/100 ML VIAL IV PRN (19:20)
[2018-05-29 22:29] LABS: Hemoglobin 8.3 g/dL (14.0-18.0)
[2018-05-30] MEDS ORDERED: Dextrose 10% in Water 1,000 ML IV SCH (00:30)
[2018-05-30 04:27] LABS: #Eosinphils 0.1 thou/uL (0.0-0.7); #Lymphocytes 0.3 thou/uL (1.20-3.40); #Monocytes 0.5 thou/uL (0.11-0.59); #Neutrophils 4.1 thou/uL (1.40-6.50); %Basophils 0.2 % (0.0-1.0); %Eosinophils 2.8 % (0.0-10.0); %Lymphocytes 5.9 % (21.0-51.0); %Monocytes 9.8 % (0.0-10.0); %Neutrophils 81.3 % (42.0-75.0); Hemoglobin 8.2 g/dL (14.0-18.0); Mean Corpuscular HGB CONC 36.4 g/dL (32.0-36.0); Mean Corpuscular Hemoglobin 31.7 pg (27.0-31.0); Mean Corpuscular Volume 87.2 fL (78.0-98.0); Mean Platelet Volume 7.2 fL (7.4-10.4); Platelet Count 178 thou/uL (130-400); RBC Distribution Width 13.5 % (11.5-14.5); Red Blood Cell (RBC) Count 2.58 mill/uL (4.70-6.10)
[2018-05-30 04:47] LABS: ALT (SGPT) 9 U/L (8-55); AST (SGOT) 14 U/L (5-34); Albumin 2.8 g/dL (3.4-4.8); Alkaline Phosphatase 53 U/L (40-150); Anion Gap 11 mmol/L (10-20); BUN (Urea Nitrogen) 38 mg/dL (8.4-25.7); Bilirubin, Total 0.5 mg/dL (0.2-1.2); Calc. Creatinine Clearance 72 mL/min (70-130); Calcium 8.6 mg/dL (7.8-10.44); Carbon Dioxide 25 mmol/L (23-31); Chloride 105 mmol/L (98-107); Estimated GFR-MDRD 67; Globulin 2.7 g/dL (2.4-3.5); Glucose 82 mg/dL (80-115); Magnesium 1.4 mg/dL (1.6-2.6); Phosphorus 2.8 mg/dL (2.3-4.7); Potassium 3.4 mmol/L (3.5-5.1); Protein, Total 5.5 g/dL (5.8-8.1); Sodium 138 mmol/L (136-145)
[2018-05-30] MEDS ORDERED: Potassium Chloride 40 MEQ in Premix Bag 1 BAG IVPB SCH (07:15)
[2018-05-30] MEDS: Propofol 1,000 MG/100 ML VIAL IV PRN (07:30)
[2018-05-30] MEDS: Pantoprazole 80 MG in Sodium Chloride 0.9% 100 ML IVP SCH ×2 (07:36→18:17)
--- NOTE | 2018-05-30 08:28 | PDOC.FM ---
- Subjective Subjective: 68 yo male with HFrEF with pacemaker, CAD s/p stents, and malignancy of piriformis sinus who presented 05/28 with fatigue and two melenic stools admitted for an acute symptomatic GI bleed/anemia. Hosp day 2 Intubated. Responds to commands. Hopeful for extubation today. - Objective Vital Signs & Weight: Vital Signs (12 hours) Temp Pulse Resp BP Pulse Ox 05/30/18 08:00 13 05/30/18 07:37 94 L 05/30/18 07:00 99.0 F 05/30/18 06:51 69 136/63 96 05/30/18 06:00 14 05/30/18 04:01 78 05/30/18 04:00 14 05/30/18 02:00 14 05/30/18 00:00 98.9 F 14 05/29/18 23:00 88 05/29/18 22:00 14 Weight Admit Weight 76.657 kg Weight 79.7 kg Most Recent Monitor Data Heart Rate from ECG 65 NIBP 119/62 NIBP BP-Mean 81 Respiration from ECG 9 SpO2 95 I&O: 05/29/18 05/30/18 05/31/18 06:59 06:59 06:59 Intake Total 328 1326 Output Total 445 2720 175 Balance -117 -1394 -175 Result Diagrams: 05/30/18 04:00 05/30/18 04:00 Dx/Plan (1) CAD (coronary artery disease) Code(s): I25.10 - ATHSCL HEART DISEASE OF [place] CORONARY ARTERY W/O ANG PCTRS Status: Acute (2) Acute gastrointestinal bleeding Code(s): K92.2 - GASTROINTESTINAL HEMORRHAGE, UNSPECIFIED Status: Acute (3) Malignant tumor of pyriform sinus Code(s): C12 - MALIGNANT NEOPLASM OF PYRIFORM SINUS Status: Acute (4) Symptomatic anemia Code(s): D64.9 - ANEMIA, UNSPECIFIED Status: Acute (5) CHF (congestive heart failure) Code(s): I50.9 - HEART FAILURE, UNSPECIFIED Status: Acute (6) COPD exacerbation Code(s): J44.1 - CHRONIC OBSTRUCTIVE PULMONARY DISEASE W (ACUTE) EXACERBATION Status: Acute - Plan Plan: 68 yo male with HFrEF with pacemaker, CAD s/p stents, and malignancy of piriformis sinus who presented 05/28 with fatigue and two melenic stools admitted for an acute symptomatic GI bleed/anemia. Hosp day 2 1. Acute symptomatic GI bleed and anemia - hb 8.2 this am; s/p 5 units prbcs, 2 units ffp, 2 units platelets - bleeding ulcer found on scope 2. Piriformis Sinus Malignancy, s/p chemoradiation - Dr. Kohler consulted - dysphagia, has PEG tube 3. HFrEF - Last echo found EF of 30-35% two years ago. Patient with AICD. - Will transfuse cautiously to prevent overload; will repeat echo after extubation 4. HTN - bp wnl today; will monitor and add home meds back if needed 5. Hx CAD - Continue home med when stabilized 6. Tobacco abuse - Advise cessation 7. Historical COPD - supplement with O2 as needed and add neb treatment if symptomatic. FULL CODE DVT prophylaxis: SCDs DISPO: improved; hopeful for extubation today
[2018-05-30 09:13] LABS: Hemoglobin 8.7 g/dL (14.0-18.0)
[2018-05-30] MEDS: cefTRIAXone\\ROCEPHIN 2 GM in Sodium Chloride 0.9% 100 ML IVPB SCH (10:24)
[2018-05-30] MEDS: Sodium Chloride 0.9% 1,000 ML IV SCH ×2 (10:25→10:31)
--- NOTE | 2018-05-30 11:48 | PRG ---
DATE OF SERVICE: 05/30/2018 SUBJECTIVE: Mr. Sharp is still sedated on the ventilator. His hemoglobin level this morning was 8.7. INR is normal. Platelets normal. He can likely be weaned off sedation and extubated later today, but we will leave this, of course, to the discretion of the cheese grader. Continue to monitor hemoglobin and hematocrit and continue IV PPI. Job ID: [id number]
[2018-05-30] MEDS: Lorazepam 2 MG/ML VIAL SLOW IVP PRN (12:35)
[2018-05-30 21:12] LABS: Hemoglobin 8.5 g/dL (14.0-18.0)
--- NOTE | 2018-05-30 22:14 | OP ---
DATE OF PROCEDURE: 05/29/2018 PROCEDURES PERFORMED: EGD, control of hemorrhage. PREPROCEDURE DIAGNOSES: 1. Gastrointestinal hemorrhage. 2. Throat cancer. 3. Chronic NSAID use. 4. No prophylactic PPI use. POSTPROCEDURE DIAGNOSES: 1. Ulcers up in the pharynx consistent with radiation therapy. No bleeding site identified. Poor visualization secondary to ET tube in place. 2. Irregular squamocolumnar junction at 40 cm from the incisural orifice consistent with Morrison's, nonbleeding. No mass, lesions, or nodules, not biopsied. 3. Normal stomach in forward and retroflexed views. 4. Two cm ulcer cratered with clot in the apex of the duodenum at the apex of the bulb. Clot removed. Epinephrine 1 mL injected. No more could be injected due to firm status. 5. Cautery of large visible vessel with no active bleeding. ANESTHESIA: General endotracheal anesthesia. RECOMMENDATIONS: 1. Keep patient intubated for 24 to 48 hours in the ICU. If the patient re-bleeds, can take second-look endoscopy, but patient would likely need a surgery based on the size of the visible vessel and ulcer and the difficult location of the visible vessel. 2. Keep type and cross at all times. 3. H and H q.6. The goal is to keep the hemoglobin between 7 and 8. 4. Protonix drip. 5. Alvarado catheter. Strict in's and out's. DESCRIPTION OF PROCEDURE: The patient was informed of the risks, benefits, possible complications of endoscopy including perforation, bleeding, reaction to medication, and aspiration. Informed consent was obtained. The patient was brought to the endoscopy suite where he was intubated for airway protection GI bleed. Therapeutic endoscope was advanced into the bite block and to the pharynx and esophagus. There was quite a bit of edema and some erosions and ulceration in the pharynx. However, this could not really be fully visualized with the scope and with the ET tube in place. There were no active bleeding sites identified. No active tumor was seen in the proximal esophagus. In the distal esophagus, the Z-line appeared irregular at about 40 cm from the incisural orifice consistent with Morrison's esophagus. There were no nodules, masses, or ulcers in this area. There was a small hiatal hernia. The scope was introduced into the stomach where there was clear bile. Retroflexed views were normal. Forward views were normal. The scope was advanced to the duodenum where there was edema, erythema, and submucosal hemorrhage. The scope was advanced beyond the bulb and the second and third portions looked normal. There was no active bleeding. In the superior aspect of the bulb, there was a large cratered 2 cm ulcer with clot. This was irrigated, suctioned away, and a visible vessel was noted in a firm based cratered ulcer. We could not get the scope oriented or deflected in a way to access the vessel. Therefore, the scope was removed and a diagnostic scope, which was more flexible, was used to orient and bring the visible vessel to the 6 o'clock position with the endoscope. It was injected with epinephrine, but because of the firmness of the tissue, only about half to 1 mL could be injected with a pulsatile visible vessel present, which was nonbleeding, decision was made to cauterize this with 7-Vincentian heater probe, which was done successfully. The scope was brought back from the stomach and the remainder of the stomach was surveyed, which was normal and the scope was removed. Job ID: [id number]
--- NOTE | 2018-05-30 23:08 | CON ---
DATE OF CONSULTATION: 05/30/2018 HISTORY OF PRESENT ILLNESS: Parmjit Sharp is a 68-year-old male, who is intubated for GI bleed. He is stable overnight and had no clinical evidence of rebleeding. PHYSICAL EXAMINATION: VITAL SIGNS: He is afebrile. Heart rate 67, blood pressure 153/66. Intake and outputs negative 1394. LUNGS: Clear. HEART: Regular rhythm. S1 and S2 are normal. ABDOMEN: Soft. No guarding. EXTREMITIES: Without asymmetry. LABORATORY DATA: Sodium 138, potassium 3.4, chloride 105, bicarb 25, BUN 38, creatinine 1.1. Hemoglobin has been 8.2, 8.7, and 9 on the last three checks. INR is 1.2. He has no blood gas. IMPRESSION: Respiratory failure associated with gastrointestinal bleeding. He appears to be stable. Spontaneous breathing trial was initiated. He did well with that, keeping his minute volume about 8 L per minute. He passed a leak test. He subsequently has been extubated. He is clinically stable postextubation. Critical care time 30 minutes. Job ID: [id number] MTDD
[2018-05-31] MEDS: Sodium Chloride 0.9% 1,000 ML IV SCH ×2 (00:26→15:08)
[2018-05-31] MEDS: Pantoprazole 80 MG in Sodium Chloride 0.9% 100 ML IVP SCH (04:51)
[2018-05-31 05:01] LABS: Hemoglobin 8.6 g/dL (14.0-18.0)
--- NOTE | 2018-05-31 06:59 | PDOC.FM ---
- Subjective Subjective: 68 yo male with HFrEF with pacemaker, CAD s/p stents, and malignancy of piriformis sinus who presented 05/28 with fatigue and two melenic stools admitted for an acute symptomatic GI bleed/anemia. Hosp day 4 Extubated. Did not sleep well. Denies complaints otherwise. - Objective Vital Signs & Weight: Vital Signs (12 hours) Temp Pulse Ox 05/31/18 04:00 98.4 F 05/31/18 00:00 98.2 F 05/30/18 20:00 98.6 F 99 Weight Admit Weight 76.657 kg Weight 74.1 kg Most Recent Monitor Data Heart Rate from ECG 76 NIBP 137/69 NIBP BP-Mean 91 Respiration from ECG 13 SpO2 99 I&O: 05/29/18 05/30/18 05/31/18 06:59 06:59 06:59 Intake Total 328 1326 2229 Output Total 445 2720 2635 Balance -117 -1394 -406 Result Diagrams: 05/31/18 04:50 05/30/18 04:00 Phys Exam - Physical Examination Constitutional: NAD HEENT: PERRLA, moist MMs Respiratory: no wheezing, no rales, clear to auscultation bilateral Cardiovascular: RRR, no significant murmur Gastrointestinal: soft, non-tender, no distention Musculoskeletal: no edema Neurological: non-focal Psychiatric: normal affect, A&O x 3 Dx/Plan (1) CAD (coronary artery disease) Code(s): I25.10 - ATHSCL HEART DISEASE OF [place] CORONARY ARTERY W/O ANG PCTRS Status: Acute (2) Acute gastrointestinal bleeding Code(s): K92.2 - GASTROINTESTINAL HEMORRHAGE, UNSPECIFIED Status: Acute (3) Malignant tumor of pyriform sinus Code(s): C12 - MALIGNANT NEOPLASM OF PYRIFORM SINUS Status: Acute (4) Symptomatic anemia Code(s): D64.9 - ANEMIA, UNSPECIFIED Status: Acute (5) CHF (congestive heart failure) Code(s): I50.9 - HEART FAILURE, UNSPECIFIED Status: Acute (6) COPD exacerbation Code(s): J44.1 - CHRONIC OBSTRUCTIVE PULMONARY DISEASE W (ACUTE) EXACERBATION Status: Acute - Plan Plan: 68 yo male with HFrEF with pacemaker, CAD s/p stents, and malignancy of piriformis sinus who presented 05/28 with fatigue and two melenic stools admitted for an acute symptomatic GI bleed/anemia. Hosp day 4 1. Acute blood loss anemia - hb 8.6 this am and stable from yesterday; s/p 5 units prbcs, 2 units ffp, 2 units platelets - likely transition out of the ICU today 2. Piriformis Sinus Malignancy, s/p chemoradiation - Dr. Kohler consulted - dysphagia, has PEG tube for nutrition 3. HFrEF - Last echo found EF of 30-35% two years ago. Patient with AICD. - Will transfuse cautiously to prevent overload; will repeat echo after extubation 4. HTN - bp wnl today; will monitor and add home meds back if needed 5. Hx CAD - Continue home med when stabilized 6. Tobacco abuse - Advise cessation 7. Historical COPD - supplement with O2 as needed and add neb treatment if symptomatic. FULL CODE DVT prophylaxis: SCDs DISPO: improved; transfer out of ICU today
[2018-05-31 09:56] LABS: Hemoglobin 8.9 g/dL (14.0-18.0)
--- NOTE | 2018-05-31 10:09 | PRG ---
DATE OF SERVICE: 05/31/2018 SERVICE: Pulmonary Medicine. INTERVAL HISTORY: The patient is doing really well from respiratory standpoint. He is breathing comfortably. Denies any current chest pain, nausea, vomiting, fevers, or chills. Otherwise, there has been no interval change to his condition. He does not have any bloody bowel movements in the last 24 hours. His hemoglobins have remained stable. He has yet to take a diet. That being said, he has an improved appetite. OBJECTIVE: VITAL SIGNS: Afebrile, pulse 76, blood pressure 137/69, respirations 13, and saturation 99% on room air. GENERAL: The patient is awake, alert, in no apparent distress. LUNGS: Decent air entry. No prolonged expiratory phase, wheezing, rhonchi, or crackles are appreciated. HEART: Normal rate and regular. ABDOMEN: Soft, nontender, and nondistended. Bowel sounds are positive. MUSCULOSKELETAL: No cyanosis or clubbing. No pitting in the bilateral lower extremities. NEUROLOGIC: Grossly nonfocal. LABORATORY DATA: Hemoglobin 8.9 and stable. ASSESSMENT: 1. Peptic ulcer disease. 2. Acute blood loss anemia. 3. History of pyriform sinus cancer, status post radiation to the neck and PEG tube placement. DISCUSSION AND PLAN: At this point, the patient is stable for transition out of the ICU to the medical unit. At this point, he has no further requirements for inpatient Pulmonary/Critical Care opinion, and I will sign off. Please call with additional questions or concerns moving forward. Job ID: [id number]
--- NOTE | 2018-05-31 10:48 | PDOC.EVN ---
Event Note - Event Note Event Note: KENDRICK: HPI:68 yo male with HFrEF with pacemaker, CAD s/p stents, and malignancy of piriformis sinus who presented 05/28 with fatigue and two melenic stools admitted for an acute symptomatic GI bleed/anemia. Hosp day 4 Acute blood loss anemia-pt is s/p EGD and found to have a bleeding ulcer in the first part of his duodenum which was injected with epi and cauterized with good hemostasis. A pulsatile vessel was found below the ulcer. His hb was initially low at 6.8 but has been stable after cautery and with 5 units of prbcs, 2 ffp, 2 units platelets. Pt will be transferred out of the unit today. Pt is on protonix BID. Piriformis Sinus Malignancy, s/p chemoradiation. Dr. Kohler was consulted. Pt has a PEG tube in place for feeds d/t chronic dysphagia. HFrEF-No s/s of acute exacerbation. Last echo found EF of 30-35% two years ago. Patient with AICD. Echo repeated today, pending results. HTN-initially held bp meds as pt was hypotensive on admission. Will add back home meds slowly. Hx CAD- home meds continued. Tobacco abuse- advised on cessation Historical COPD- no s/s of acute exacerbation. Supplement with O2 as needed and add neb treatment if symptomatic.
[2018-05-31] MEDS: cefTRIAXone\\ROCEPHIN 2 GM in Sodium Chloride 0.9% 100 ML IVPB SCH (10:59)
--- NOTE | 2018-05-31 11:10 | PRG ---
DATE OF SERVICE: 05/31/2018 SUBJECTIVE: Mr. Sharp is awake and alert this morning, in no distress. No abdominal pain. We will discuss with Dr. Gonzalez of GI service regarding reinstituting intermittent PEG tube feedings. Otherwise, he is stable, improved, and will be transferred out of ICU to a regular medical bed. We are continuing of course to monitor his hemoglobin and hematocrit, and they have been steady for the last three days. Hemoglobin this morning was 8.9 with hematocrit of 25.1. Job ID: [id number]
--- NOTE | 2018-05-31 11:27 | PRG ---
DATE OF SERVICE: 05/30/2018 SUBJECTIVE: Mr. Sharp has had no further bleeding overnight. He is extubated this morning. He is in the ICU, remains on Rocephin and Protonix drip. NG tube is in place. OBJECTIVE: VITAL SIGNS: Temperature 97.3, pulse 80, and blood pressure 140/60. LUNGS: Clear. HEART: Regular rate and rhythm. No rubs, gallops, or murmurs. ABDOMEN: Soft and nontender. PEG tube is in place. LABORATORY DATA: Hemoglobin 8.2 this morning. ASSESSMENT: Gastrointestinal hemorrhage secondary to duodenal ulcer, status post 5 units of packed red blood cells, 2 units of FFP and 2 units of platelets. presently hemodynamically stable. RECOMMENDATIONS: 1. Change H and H q.12. 2. Remove NG tube, which has been at the bedside. 3. Continue Protonix drip and ICU stay overnight and if there is no , start clear liquids in the morning and change to IV Protonix q.12. Job ID: [id number]
[2018-05-31 12:57] VITALS: BMI 24.1
--- NOTE | 2018-05-31 15:03 | PRG ---
DATE OF SERVICE: 05/31/2018 SUBJECTIVE: Mr. Sharp has been moved out of the ICU. He has had no bleeding. He is not sure if he can take anything by mouth as his mouth is very sore from radiation. OBJECTIVE: VITAL SIGNS: Temperature is 98.1, pulse is 80, blood pressure 156/70. LUNGS: Clear. ABDOMEN: Nontender. PEG tube is in place. LABORATORY DATA: Hemoglobin is 8.9. BUN and creatinine of 38 and 1.0. ASSESSMENT: GI bleed secondary to large duodenal ulcer. RECOMMENDATIONS: 1. Change to IV Protonix q.12. 2. Start sipping some clears, if he can tolerate that. If not, he needs to be remained n.p.o.,if there is aspiration question and then he can start tube feeds tomorrow if there is no further bleeding. 3. Serial hemoglobin and hematocrit can stop. Job ID: [id number]
--- NOTE | 2018-05-31 16:00 | OP ---
DATE OF PROCEDURE: 05/29/2018 PROCEDURE PERFORMED: Internal jugular central line on the right. INDICATIONS: Hypertension without response to adequate fluid resuscitation. PROCEDURE OPERATORS: Dr. Bernabe Griffin and Dr. Gordy Healy. ATTENDING PHYSICIAN: Dr. Favian Quevedo. CONSENT: Consent was obtained from the patient prior to the procedure. Indication, risks, benefits were explained at length. PROCEDURE SUMMARY: Central line insertion was completed by independent sterile technique. Time-out was performed. I washed my hand immediately prior to procedure and wore a surgical cap, mask and I had to wear a full gown and sterile gloves throughout the procedure. The patient was placed in Trendelenburg. The right chest region was prepped using chlorhexidine scrub and draped in a sterile fashion using 3-quarter sheet drape. Medial and lateral heads of the sternocleidomastoid muscles were identified as was the carotid pulse. The internal jugular vein was identified using ultrasound. Anesthesia was achieved over the vein using 1% lidocaine. Using real-time guidance, the introducer needle was inserted into the internal jugular vein under direct ultrasound visualization. The was withdrawn. The syringe was removed. A guidewire was advanced through the introducer needle. The guidewire was visualized in the internal jugular vein by ultrasound. At this time, an incision was made with the scalpel. The introducer needle was exchanged for dilator over the guidewire. After appropriate dilation was obtained, the dilator was exchanged over the wire for central venous catheter . The wire was removed and the catheter was sutured in place at 15 cm. A sheath was placed over the catheter at the insertion site. The patient tolerated the procedure without any hemodynamic compromise. At the time of the procedure completion, all ports aspirated and flushed properly. Postprocedure x-ray was taken and catheter was seen to be in proper position with no signs of pneumothorax or other cardiothoracic processes. Estimated blood was less than 5 mL. Job ID: [id number]
[2018-05-31] MEDS: Pantoprazole 40 MG VIAL IVP SCH (20:54)
[2018-06-01] MEDS: Sodium Chloride 0.9% 1,000 ML IV SCH ×2 (03:40→21:22)
[2018-06-01 04:58] LABS: #Eosinphils 0.1 thou/uL (0.0-0.7); #Lymphocytes 0.2 thou/uL (1.20-3.40); #Monocytes 0.7 thou/uL (0.11-0.59); #Neutrophils 4.3 thou/uL (1.40-6.50); %Basophils 0.7 % (0.0-1.0); %Eosinophils 1.9 % (0.0-10.0); %Monocytes 12.6 % (0.0-10.0); %Neutrophils 80.7 % (42.0-75.0); Hemoglobin 9.2 g/dL (14.0-18.0); Mean Corpuscular HGB CONC 35.6 g/dL (32.0-36.0); Mean Corpuscular Hemoglobin 31.3 pg (27.0-31.0); Mean Corpuscular Volume 88.1 fL (78.0-98.0); Mean Platelet Volume 6.6 fL (7.4-10.4); Platelet Count 190 thou/uL (130-400); RBC Distribution Width 13.2 % (11.5-14.5); Red Blood Cell (RBC) Count 2.92 mill/uL (4.70-6.10); White Blood Cell (WBC) Count 5.4 thou/uL (4.8-10.8)
[2018-06-01 05:17] LABS: Anion Gap 17 mmol/L (10-20); BUN (Urea Nitrogen) 17 mg/dL (8.4-25.7); Calc. Creatinine Clearance 89 mL/min (70-130); Calcium 8.7 mg/dL (7.8-10.44); Carbon Dioxide 22 mmol/L (23-31); Chloride 102 mmol/L (98-107); Estimated GFR-MDRD 89; Glucose 60 mg/dL (80-115); Phosphorus 3.1 mg/dL (2.3-4.7); Potassium 3.2 mmol/L (3.5-5.1); Sodium 138 mmol/L (136-145)
[2018-06-01] MEDS ORDERED: Magnesium Sulfate 3 GM in Sodium Chloride 0.9% 100 ML IVPB SCH (07:00)
[2018-06-01] MEDS ORDERED: Potassium Chloride 20 MEQ TAB PO SCH (08:00)
[2018-06-01] MEDS: Pantoprazole 40 MG VIAL IVP SCH ×2 (08:08→21:21)
--- NOTE | 2018-06-01 10:15 | PRG ---
DATE OF SERVICE: 06/01/2018 This is an addendum to the note of Dr. Talon Boudreaux. Mr. Sharp is in good spirits this morning. He is ready to attempt p.o. feedings. We will start with clear to full liquids and advance as tolerated. If this is not tolerated, we will switch him to his PEG tube feedings. His hemoglobin is stable at 9.2, and I think we quit on checking this. We also appreciate Dr. Gonzalez excellent care and input on this patient. Job ID: [id number]
[2018-06-01] MEDS: Potassium Chloride 20 MEQ/100 ML PREMIX BAG IVPB SCH ×2 (10:18→12:32)
--- NOTE | 2018-06-01 10:39 | PDOC.FM ---
- Subjective Subjective: Seen at bedside this morning resting comfortably. No concerns other than wanting his arora out. No acute events over night. He has not been able to tolerate much PO due to pain with swallowing. - Objective Vital Signs & Weight: Vital Signs (12 hours) Temp Pulse Resp BP Pulse Ox 06/01/18 08:10 98.0 F 60 16 144/67 H 95 06/01/18 03:50 98.1 F 67 16 146/70 H 94 L 05/31/18 23:56 98.5 F 70 16 149/67 H 95 Weight Admit Weight 76.657 kg Weight 74.888 kg Most Recent Monitor Data Heart Rate from ECG 60 NIBP 156/70 NIBP BP-Mean 98 Respiration from ECG 20 SpO2 96 I&O: 05/31/18 06/01/18 06/02/18 06:59 06:59 06:59 Intake Total 2229 1223 Output Total 2635 1845 Balance -406 -982 Result Diagrams: 06/01/18 04:45 06/01/18 04:45 Phys Exam - Physical Examination Constitutional: NAD HEENT: moist MMs Neck: no JVD Respiratory: clear to auscultation bilateral Cardiovascular: RRR, no significant murmur Gastrointestinal: soft, non-tender, no distention, positive bowel sounds Musculoskeletal: no edema Neurological: moves all 4 limbs Psychiatric: A&O x 3 Skin: no rash Dx/Plan (1) Acute gastrointestinal bleeding Code(s): K92.2 - GASTROINTESTINAL HEMORRHAGE, UNSPECIFIED Status: Resolved (2) CAD (coronary artery disease) Code(s): I25.10 - ATHSCL HEART DISEASE OF [place] CORONARY ARTERY W/O ANG PCTRS Status: Chronic (3) Malignant tumor of pyriform sinus Code(s): C12 - MALIGNANT NEOPLASM OF PYRIFORM SINUS Status: Acute (4) Symptomatic anemia Code(s): D64.9 - ANEMIA, UNSPECIFIED Status: Resolved (5) CHF (congestive heart failure) Code(s): I50.9 - HEART FAILURE, UNSPECIFIED Status: Chronic (6) Pulmonary arterial hypertension Code(s): I27.21 - SECONDARY PULMONARY ARTERIAL HYPERTENSION Status: Acute (7) Physical deconditioning Code(s): R53.81 - OTHER MALAISE Status: Acute (8) Hypokalemia Code(s): E87.6 - HYPOKALEMIA Status: Acute (9) Hypomagnesemia Code(s): E83.42 - HYPOMAGNESEMIA Status: Acute - Plan Plan: 1. Symptomatic anemia secondary to acute GI bleed - H&H is currently stable. Will dc am CBC - encourage full liquid diet today 2. Malignancy of piriformis sinus - continue treatment with onc - he is having trouble with PO intake, will start tube feeds today if needed 3. CHF - currently stable with no clinical signs of overload. - ECHO shows EF of 23-30% 4. Pulmonary artery HTN - ID'd on echo. PA pressure in 70s 5. Deconditioning - will consult rehab for possible placement. 6. Hypokalemia - replaced 7. Hypomagnesemia - replaced Dispo: patient is currently stable and ready to discharge pending rehab consult.
[2018-06-01] MEDS ORDERED: Pancrelipase DR 12000 1 CAP FS PRN (16:43)
[2018-06-01] MEDS ORDERED: Sodium Bicarbonate Tab 325 MG TAB PER TUBE PRN (16:43)
--- NOTE | 2018-06-01 17:30 | PRG ---
DATE OF SERVICE: 06/01/2018 SUBJECTIVE: Mr. Sharp has had no signs of bleeding. He is tolerating clear liquids. OBJECTIVE: VITAL SIGNS: Temperature is 98.3, pulse 67, blood pressure is 144/67. LUNGS: Clear. ABDOMEN: Nontender. EXTREMITIES: No clubbing, cyanosis, or edema. ASSESSMENT: Duodenal ulcer, large, status post cautery and control of hemorrhage on 04/27/2018. There has been no further signs of bleeding. RECOMMENDATIONS: I think we can change to p.o. PPI b.i.d. at this time. We would stop the serial H and H and go to once daily CBC and start his tube feeds. The patient is elected to take p.o. and I think as long as no signs of choking or aspiration that is okay with start with liquids clear and then full liquids. Recommend checking H pylori stool antigen as well. Job ID: [id number]
[2018-06-02 05:01] LABS: Hemoglobin 8.4 g/dL (14.0-18.0)
[2018-06-02 05:14] LABS: Anion Gap 7 mmol/L (10-20); BUN (Urea Nitrogen) 20 mg/dL (8.4-25.7); Calc. Creatinine Clearance 86 mL/min (70-130); Calcium 8.5 mg/dL (7.8-10.44); Carbon Dioxide 29 mmol/L (23-31); Chloride 104 mmol/L (98-107); Estimated GFR-MDRD 86; Glucose 147 mg/dL (80-115); Magnesium 1.3 mg/dL (1.6-2.6); Potassium 3.3 mmol/L (3.5-5.1); Sodium 137 mmol/L (136-145)
[2018-06-02 05:26] LABS: Phosphorus 2.2 mg/dL (2.3-4.7)
[2018-06-02] MEDS ORDERED: Magnesium 2 GM/50 ML 2 GM in Premix Bag 1 BAG IVPB SCH (06:30)
[2018-06-02] MEDS: Chloraseptic Spray 180 ml Bottle PO PRN ×2 (06:50→20:34)
--- NOTE | 2018-06-02 07:50 | PDOC.FM ---
- Subjective Subjective: Patient seen at bedside this morning resting comfortably. Yesterday he tolerated some PO liquids and has been walking around the halls. He did not go for radiation as initially planned. He denies any new symptoms. There were no acute events over night. - Objective MAR Reviewed: Yes Vital Signs & Weight: Vital Signs (12 hours) Temp Pulse Resp BP Pulse Ox 06/01/18 19:59 98.1 F 70 18 162/72 H 97 06/01/18 19:55 97 Weight Admit Weight 76.657 kg Weight 74.134 kg Most Recent Monitor Data Heart Rate from ECG 60 NIBP 156/70 NIBP BP-Mean 98 Respiration from ECG 20 SpO2 96 I&O: 06/01/18 06/02/18 06/03/18 06:59 06:59 06:59 Intake Total 1223 2685 1826 Output Total 1845 1100 475 Balance -622 1585 1351 Result Diagrams: 06/02/18 04:55 06/02/18 04:55 Phys Exam - Physical Examination Constitutional: NAD HEENT: moist MMs Neck: no JVD Respiratory: clear to auscultation bilateral Cardiovascular: RRR, no significant murmur Gastrointestinal: soft, non-tender, no distention, positive bowel sounds Musculoskeletal: no edema Neurological: moves all 4 limbs Psychiatric: A&O x 3 Skin: no rash Dx/Plan (1) Acute gastrointestinal bleeding Code(s): K92.2 - GASTROINTESTINAL HEMORRHAGE, UNSPECIFIED Status: Resolved (2) CAD (coronary artery disease) Code(s): I25.10 - ATHSCL HEART DISEASE OF [place] CORONARY ARTERY W/O ANG PCTRS Status: Chronic (3) Malignant tumor of pyriform sinus Code(s): C12 - MALIGNANT NEOPLASM OF PYRIFORM SINUS Status: Acute (4) Symptomatic anemia Code(s): D64.9 - ANEMIA, UNSPECIFIED Status: Resolved (5) CHF (congestive heart failure) Code(s): I50.9 - HEART FAILURE, UNSPECIFIED Status: Chronic (6) Pulmonary arterial hypertension Code(s): I27.21 - SECONDARY PULMONARY ARTERIAL HYPERTENSION Status: Acute (7) Physical deconditioning Code(s): R53.81 - OTHER MALAISE Status: Acute (8) Hypokalemia Code(s): E87.6 - HYPOKALEMIA Status: Acute (9) Hypomagnesemia Code(s): E83.42 - HYPOMAGNESEMIA Status: Acute (10) Hypophosphatasia Code(s): E83.39 - OTHER DISORDERS OF PHOSPHORUS METABOLISM Status: Acute - Plan Plan: 1. Symptomatic anemia secondary to acute GI bleed - Hb dropped over night, however patient denies bloody or black stool and vital signs are reassuring. Will continue to monitor. GI is following case - patient tolerated only a small amount of liquids PO yesterday, thus tube feeds have started - Continue to feed PO as tolerated and watch for signs of aspiration. - H Pylori stool testing pending for possible cause of GI bleed 2. Malignancy of piriformis sinus - continue treatment with onc 3. CHF - currently stable with no clinical signs of overload. - ECHO shows EF of 23-30% 4. Pulmonary artery HTN - ID'd on echo. PA pressure in 70s 5. Deconditioning - will consult rehab for possible placement. 6. Hypokalemia - replaced 7. Hypomagnesemia - replaced Dispo: patient is currently stable, however will need to be watched due drop in Hb. Possible discharge over the next 1-2 days
[2018-06-02] MEDS: Furosemide 20 MG TAB PO SCH ×2 (08:52→20:33)
[2018-06-02] MEDS: Potassium Chloride 20 MEQ in Premix Bag 1 BAG IVPB SCH ×2 (08:53→11:15)
[2018-06-02] MEDS: Pantoprazole 40 MG VIAL IVP SCH ×2 (08:53→20:33)
--- NOTE | 2018-06-02 09:00 | PRG ---
DATE OF SERVICE: 06/01/2018 SUBJECTIVE: Mr. Sharp is sleeping in the room. His daughter notes he was coughing and medicine for that. The patient states he is having loose stools anytime he eats and is embarrassed by that and wants something to slow that down. Talking to the nurse, they say his stools have been formed and not watery. The patient denies any overt pain. OBJECTIVE: VITAL SIGNS: Pulse 77, blood pressure 160/72, O2 saturation 91% to 92% on nasal cannula 2 L. LUNGS: Slightly decreased breath sounds at bases. HEART: Regular rate and rhythm. ABDOMEN: Nontender. There is no rebound or guarding. EXTREMITIES: There is no clubbing, cyanosis, or edema. LABORATORY DATA: White count is 11.1, hemoglobin is 9.3, and platelet count is 212. Electrolytes are normal. Alkaline phosphatase is 170. Protein 5.4. Albumin 2.4. Urinalysis shows some protein, trace leukocyte esterase. ASSESSMENT: 1. Choledocholithiasis, status post endoscopic retrograde cholangiopancreatography with no signs of complications in that procedure and removal of two common duct stones. 2. There was concern by Anesthesia of that procedure, there was possibly a pharyngeal lesion. ENT evaluated him, did not see a pharyngeal lesion, suspect it was adherent mucus or nasal discharge drainage. 3. The patient claimed diarrhea likely related to his antibiotics. We will check stool for C diff if his stools become watery. 4. With regard to the patient's cough, I have asked the patient's nurse to call sagger preparer and see how they want to address this. It seems that the patient is on very little fluids at this point in time, so that is an issue. Job ID: [id number]
[2018-06-02] MEDS: Carvedilol 3.125 MG TAB PO SCH ×2 (09:17→16:45)
--- NOTE | 2018-06-02 10:19 | PRG ---
DATE OF SERVICE: 06/02/2018 This is an addendum to the note of Dr. Talon Boudreaux. Mr. Sharp is sitting quietly in bed, in no distress. Awake, oriented, alert. Still having some difficulty with p.o. feedings as they seem to hurt his mouth and throat. His hemoglobin this morning dropped to 8.4 from yesterday of 9.2. He did have a bowel movement this morning and it is dark black. We are awaiting stool Hemoccult testing. For now, we will continue PPI. We will discuss with Dr. Gonzalez to see if he feels that repeat EGD is necessary given the recent drop in hemoglobin. There has been no coffee-ground emesis. No coughing. No vomiting of blood. Otherwise, we will continue to monitor and advance diet slowly. Job ID: [id number]
[2018-06-02 13:00] LABS: #Eosinphils 0.2 thou/uL (0.0-0.7); #Lymphocytes 0.2 thou/uL (1.20-3.40); #Monocytes 0.7 thou/uL (0.11-0.59); #Neutrophils 4.9 thou/uL (1.40-6.50); %Basophils 0.5 % (0.0-1.0); %Eosinophils 2.6 % (0.0-10.0); %Lymphocytes 3.2 % (21.0-51.0); %Monocytes 11.2 % (0.0-10.0); %Neutrophils 82.4 % (42.0-75.0); Hemoglobin 8.9 g/dL (14.0-18.0); Mean Corpuscular HGB CONC 36.4 g/dL (32.0-36.0); Mean Corpuscular Hemoglobin 32.1 pg (27.0-31.0); Mean Corpuscular Volume 88.2 fL (78.0-98.0); Mean Platelet Volume 6.7 fL (7.4-10.4); Platelet Count 218 thou/uL (130-400); RBC Distribution Width 13.2 % (11.5-14.5); Red Blood Cell (RBC) Count 2.77 mill/uL (4.70-6.10)
--- NOTE | 2018-06-02 15:11 | EKG ---
Test Reason : LOW BP Blood Pressure : / mmHG Vent. Rate : 097 BPM Atrial Rate : 097 BPM P-R Int : 180 ms QRS Dur : 092 ms QT Int : 358 ms P-R-T Axes : 017 037 115 degrees QTc Int : 454 ms Sinus rhythm with frequent Premature ventricular complexes Nonspecific T wave abnormality Abnormal ECG Confirmed by JOSE RAMON SCHAFER D.O. ([id number]), telegraph editor IGOR VILLALPANDO ([id number]) on 06/02/2018 3:11:12 PM Referred By: Confirmed By:JOSE RAMON SCHAFER D.O.
[2018-06-03 05:50] LABS: Hemoglobin 7.7 g/dL (14.0-18.0)
[2018-06-03 06:02] LABS: Phosphorus 2.6 mg/dL (2.3-4.7)
[2018-06-03 06:04] LABS: Anion Gap 9 mmol/L (10-20); BUN (Urea Nitrogen) 20 mg/dL (8.4-25.7); Calc. Creatinine Clearance 85 mL/min (70-130); Calcium 8.5 mg/dL (7.8-10.44); Carbon Dioxide 29 mmol/L (23-31); Chloride 102 mmol/L (98-107); Estimated GFR-MDRD 86; Glucose 131 mg/dL (80-115); Magnesium 1.4 mg/dL (1.6-2.6); Potassium 3.5 mmol/L (3.5-5.1); Sodium 136 mmol/L (136-145)
--- NOTE | 2018-06-03 07:21 | PDOC.FM ---
- Subjective Subjective: THis morning patient states he is feeling well overall. Denies nausea or vomiting. He tolerated broth PO yesterday, mild sore throat. Denies abdominal pain or diarrhea. Nurses report stool continues to be dark, no signs of bright red blood. - Objective Vital Signs & Weight: Vital Signs (12 hours) Temp Pulse Resp BP Pulse Ox 06/02/18 19:51 98.8 F 74 18 114/61 94 L Weight Admit Weight 76.657 kg Weight 73.301 kg Most Recent Monitor Data Heart Rate from ECG 60 NIBP 156/70 NIBP BP-Mean 98 Respiration from ECG 20 SpO2 96 I&O: 06/02/18 06/03/18 06/04/18 06:59 06:59 06:59 Intake Total 2685 4806 Output Total 1100 475 Balance 1585 4331 Result Diagrams: 06/03/18 05:35 06/03/18 05:35 Phys Exam - Physical Examination Constitutional: NAD HEENT: PERRLA, moist MMs Neck: no nodes, full ROM Respiratory: no wheezing, clear to auscultation bilateral Cardiovascular: RRR, no significant murmur Gastrointestinal: soft, non-tender, no distention, positive bowel sounds Musculoskeletal: no edema, pulses present Neurological: non-focal, moves all 4 limbs Psychiatric: normal affect, A&O x 3 Skin: no rash, cap refill <2 seconds Dx/Plan (1) Hypokalemia Code(s): E87.6 - HYPOKALEMIA Status: Acute (2) Hypomagnesemia Code(s): E83.42 - HYPOMAGNESEMIA Status: Acute (3) Malignant tumor of pyriform sinus Code(s): C12 - MALIGNANT NEOPLASM OF PYRIFORM SINUS Status: Acute (4) Physical deconditioning Code(s): R53.81 - OTHER MALAISE Status: Acute (5) Pulmonary arterial hypertension Code(s): I27.21 - SECONDARY PULMONARY ARTERIAL HYPERTENSION Status: Acute (6) Acute gastrointestinal bleeding Code(s): K92.2 - GASTROINTESTINAL HEMORRHAGE, UNSPECIFIED Status: Resolved (7) Symptomatic anemia Code(s): D64.9 - ANEMIA, UNSPECIFIED Status: Resolved (8) CHF (congestive heart failure) Code(s): I50.9 - HEART FAILURE, UNSPECIFIED Status: Chronic - Plan Plan: # Symptomatic anemia secondary to acute GI bleed - Hb down to 7.7 this AM - persistent dark stools, FOBT positive - likely 2/2 leftover bleeding from duodenum which resolved with EGD - tolerated broth yesterday, continues with tube feeds - H Pylori stool testing still pending for possible cause of GI bleed # Malignancy of piriformis sinus - continue treatment with onc - continues to follow with Dr. Kohler # CHF - currently stable with no clinical signs of overload. - ECHO shows EF of 23-30% # Pulmonary artery HTN - ID'd on echo. PA pressure in 70s # Deconditioning - will consult rehab for possible placement. # Hypokalemia-resolved - replaced # Hypomagnesemia- resolved - replaced Dispo: will discuss transfusion and transfer to rehab today with GI, likely transfer to rehab later today Addendum - Attending - Attending Attestation Date/Time: 06/03/18 0301 I personally evaluated the patient and discussed the management with Dr. Piper I agree with the History, Examination, Assessment and Plan documented above with any addition or exceptions noted below. Dr Piper has addressed gout, options limited with GI bleed uric acid drawn. Echo results suggest HF ReF Cardiology will be consulted, H/H stable pulse and BP stable continue observation looking into rehab.
[2018-06-03] MEDS: Furosemide 20 MG TAB PO SCH ×2 (08:05→20:19)
[2018-06-03] MEDS: Carvedilol 3.125 MG TAB PO SCH ×2 (08:05→17:20)
[2018-06-03] MEDS: Pantoprazole 40 MG VIAL IVP SCH ×2 (08:05→20:19)
[2018-06-03 09:12] LABS: Hemoglobin A1c 5.3 % (4.0-6.0)
[2018-06-03] MEDS: Magnesium Chloride 64 MG TAB PO SCH ×2 (09:35→20:19)
[2018-06-03] MEDS: traMADol HCl 50 MG TAB PO PRN ×2 (10:22→17:20)
--- NOTE | 2018-06-03 11:40 | PDOC.EVN ---
Event Note - Event Note Event Note: consulted cardiology regarding pulmonary artery HTN, and CHF
--- NOTE | 2018-06-03 14:00 | CON ---
DATE OF CONSULTATION: REASON FOR CONSULTATION: Cardiomyopathy. PRIMARY INNERSOLE MAKER: HISTORY OF PRESENT ILLNESS: Mr. Sharp is a 68-year-old gentleman who has a previous history of underlying cardiomyopathy. He has an ICD in place. He was last evaluated by Dr. Andrea Castañeda in 2017. At that time, his LVEF was of 30% to 35%. Mr. Sharp states he has not been seen or evaluated by Dr. Melchor in several years. He states he was taken to [place] within the last year, where he was then transferred to [facility]. He states a mitral clip was placed in his mitral valve. From a cardiac standpoint, he is currently stable. Denies any chest pain, pressure, shortness of breath or associated symptoms. He states he is currently in the hospital for GI bleed. Echo with Doppler dated 05/31/2018 showed LVEF 25% to 30% with a mitral valve clip and moderate TR. Severely elevated right ventricular systolic pressure present. PAST CARDIAC HISTORY: As above. 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 ALLERGIES: NONE. HOME MEDICATIONS: Lasix, carvedilol. SOCIAL HISTORY: Positive tobacco, although states he has recently quit. No current alcohol use. REVIEW OF SYSTEMS: A 10-point review of systems is reviewed and as above, otherwise negative. Please insert a new patient. PHYSICAL EXAMINATION: GENERAL: He does appear older than stated age and somewhat cachectic. VITAL SIGNS: Blood pressure 114/61, pulse 74, temperature 98.8. NEUROLOGIC: The patient is alert and oriented x3 with no focal neurologic deficits. HEENT: Sclerae without icterus. Mouth has moist mucous membranes with normal pallor. NECK: No JVD. Carotid upstroke brisk. No bruits bilaterally. LUNGS: Clear to auscultation with unlabored respirations. BACK: No scoliosis or kyphosis. CARDIAC: Regular rate and rhythm with normal S1 and S2. No S3 or S4 noted. No significant rubs, murmurs, thrills, or gallops noted throughout the precordium. PMI is not displaced. There is no parasternal heave. ABDOMEN: Soft, nontender, nondistended. No peritoneal signs present. No hepatosplenomegaly. No abnormal striae. EXTREMITIES: 2+ femoral and 2+ dorsalis pedis pulses. No cyanosis, clubbing, or edema. SKIN: No gross abnormalities. PERTINENT LABORATORY DATA: Hemoglobin 7.7, creatinine 0.9, magnesium 1.4, otherwise within normal limits. IMPRESSION: 1. Cardiomyopathy. 2. Mitral valve clip. 3. Status post automated implantable cardioverter-defibrillator. 4. Locally invasive squamous cell carcinoma. 5. Recent tobacco abuse. 6. Alcohol abuse. RECOMMENDATIONS: His overall LVEF does appear relatively unchanged from his echo in 2017. He has not had close followup with a regulatory leader since his mitral clip was placed. At this point, recommend continue carvedilol. We will decrease Lasix to 20 mg q.a.m. He does not appear to be fluid overloaded. He does have severe pulmonary hypertension on recent echo and may be a combination of left and right-sided etiology. At this point, he has no current symptoms. Would continue conservative therapy and treat his underlying condition appropriately. Given his cardiomyopathy, he may also benefit from a low-dose BRAYDON inhibitor therapy. There are no contraindications. We will also supplement magnesium. Otherwise, I have no further recommendations. Job ID: [id number]
--- NOTE | 2018-06-03 15:16 | PRG ---
DATE OF SERVICE: 06/02/2018 SUBJECTIVE: Mr. Sharp notes that he has had one bowel movement today, which was dark. It is the first bowel movement he has had since he has been out of the ICU. He feels well. He is tolerating tube feeds and some p.o. feeding. OBJECTIVE: VITAL SIGNS: Temperature is 97.4, pulse is 65, respirations 16, and blood pressure 146/70. ABDOMEN: Soft and nontender. His voice is distorted as he has had radiation therapy for throat cancer. LABORATORY DATA: This morning, his hemoglobin was 8.4, down from 9.2, the resident has rechecked it at 1245 hours, it is 8.9. BUN and creatinine are 20 and 0.89. ASSESSMENT: GI bleed from duodenal ulcer with large visible vessel, likely due to the NSAID use and his ongoing chemoradiotherapy and stress associated with that. He had an esophagogastroduodenoscopy with cautery of large visible vessel on 05/29/2018. no signs of active GI hemorrhage. He was switched to oral PPIs yesterday. His feeding has been held by the residents in light of the fact that he may be bleeding . At this time, it seems that he is not having bleeding. His hemoglobin is actually higher than it was this morning. He has had one bowel movement dark and they are going to be dark for several days now. I would restart his tube feeds. Continue his present medications and if his hemoglobin is stable tomorrow, he can be moved to skilled unit or rehab, wherever they are planning to go. He should remain on Protonix b.i.d. orally for 8 to 12 weeks and then probably indefinitely if he is going to be on NSAIDs. Dr. Phipps will be following the patient. Job ID: [id number]
--- NOTE | 2018-06-03 17:07 | PRG ---
DATE OF SERVICE: 06/03/2018 COVERING PHYSICIAN: Cross-coverage for Dr. Nirav Gonzalez. HISTORY: Mr. Sharp is a 68-year-old male with throat cancer, status post chemotherapy, status post PEG tube placement. The patient was seen by Dr. Gonzalez because of melena and anemia. An EGD done, which revealed a large ulcer in the bulb, which was cauterized. The patient done well over the last couple of years. He is on tube feeding. He has had one diarrhea stool yesterday but normal stool last time this morning. He has no abdominal pain. No nausea, vomiting. He is tolerating tube feeding. His blood count dropped slightly to 7.7 from 8.9. However, there is lower GI bleeding. He received 1 more unit of packed RBCs. PHYSICAL EXAMINATION: GENERAL: Appears comfortable. VITAL SIGNS: Afebrile. Pulse is 77, blood pressure is 106/59. CARDIOVASCULAR: Within normal limits. ABDOMEN: Soft. No organomegaly. No tenderness. The G-tube site appears healthy. CLINICAL IMPRESSION: Gastrointestinal bleeding, duodenal ulcer. The patient has no overt bleeding at the present time. He is passing some black stool from the gastrointestinal bleeding . He had one stool yesterday and normal stool. Bicarbonate dropped slightly. RECOMMENDATION: 1. Follow up H and H. 2. From a GI standpoint, patient can be discharged back to rehabilitation tomorrow. Job ID: [id number]
[2018-06-03 18:29] LABS: Hemoglobin 9.5 g/dL (14.0-18.0)
[2018-06-04] MEDS: traMADol HCl 50 MG TAB PO PRN ×3 (00:28→14:46)
[2018-06-04 05:45] LABS: Anion Gap 10 mmol/L (10-20); BUN (Urea Nitrogen) 21 mg/dL (8.4-25.7); Calc. Creatinine Clearance 85 mL/min (70-130); Calcium 8.5 mg/dL (7.8-10.44); Carbon Dioxide 29 mmol/L (23-31); Chloride 99 mmol/L (98-107); Estimated GFR-MDRD 86; Glucose 115 mg/dL (80-115); Magnesium 1.4 mg/dL (1.6-2.6); Sodium 134 mmol/L (136-145)
[2018-06-04 05:50] LABS: Phosphorus 3.4 mg/dL (2.3-4.7)
--- NOTE | 2018-06-04 06:48 | PDOC.FM ---
- Subjective Subjective: This morning patient is feeling well overall. He states his rt anlke is hurting more than yesterday and it hurts to bear weight on it. He states this started suddenly about 2 days ago. The tramadol does help but does not provide complete relief. He has no pain in his leg only in the rt ankle. The patient states he has mild pain in the left ankle. Patient denies N/V/D. Denies chest pain, sob, or orthopnea. - Objective Vital Signs & Weight: Vital Signs (12 hours) Temp Pulse Resp BP Pulse Ox 06/03/18 19:37 99.0 F 84 18 102/61 95 Weight Admit Weight 76.657 kg Weight 74.571 kg Most Recent Monitor Data Heart Rate from ECG 60 NIBP 156/70 NIBP BP-Mean 98 Respiration from ECG 20 SpO2 96 I&O: 06/02/18 06/03/18 06/04/18 06:59 06:59 06:59 Intake Total 2685 4806 2990 Output Total 1100 475 600 Balance 1585 4331 2390 Result Diagrams: 06/03/18 17:00 06/04/18 05:27 Phys Exam - Physical Examination Constitutional: NAD HEENT: PERRLA, moist MMs Respiratory: no wheezing, clear to auscultation bilateral Cardiovascular: RRR, no significant murmur Gastrointestinal: soft, non-tender, no distention, positive bowel sounds Musculoskeletal: no edema, pulses present tenderness to palpation of rt ankle, mild warmth to touch full ROM, no erythema Neurological: non-focal, moves all 4 limbs Psychiatric: normal affect, A&O x 3 Skin: no rash, cap refill <2 seconds Dx/Plan (1) Hypokalemia Code(s): E87.6 - HYPOKALEMIA Status: Acute (2) Hypomagnesemia Code(s): E83.42 - HYPOMAGNESEMIA Status: Acute (3) Malignant tumor of pyriform sinus Code(s): C12 - MALIGNANT NEOPLASM OF PYRIFORM SINUS Status: Acute (4) Physical deconditioning Code(s): R53.81 - OTHER MALAISE Status: Acute (5) Pulmonary arterial hypertension Code(s): I27.21 - SECONDARY PULMONARY ARTERIAL HYPERTENSION Status: Acute (6) Acute gastrointestinal bleeding Code(s): K92.2 - GASTROINTESTINAL HEMORRHAGE, UNSPECIFIED Status: Resolved (7) Symptomatic anemia Code(s): D64.9 - ANEMIA, UNSPECIFIED Status: Resolved (8) CHF (congestive heart failure) Code(s): I50.9 - HEART FAILURE, UNSPECIFIED Status: Chronic - Plan Plan: # Symptomatic anemia secondary to acute GI bleed - Hgb up to 9.5 after 1U transfusion yesterday - persistent dark stools, FOBT positive - likely 2/2 leftover bleeding from duodenum which resolved with EGD, these will likely persist for 1-2 weeks - H Pylori stool testing still pending for possible cause of GI bleed # Malignancy of piriformis sinus - continue treatment with onc - continues to follow with Dr. Kohler # CHF - currently stable with no clinical signs of overload. - ECHO shows EF of 23-30% - appreciate dr. Guadalupe herman, added lisinopril - f/u with HF clinic outpt. # Pulmonary artery HTN - ID'd on echo. PA pressure in 70s - likely 2/2 CHF, will f/u with HF clinic, Cardiology # Ankle pain - hx of gout, uric acid WNL - cannnot use NSAIDS or steroids 2/2 GI bleed - tramadol - will check X-rays to be thorough # Deconditioning - will consult rehab for possible placement. # Hypokalemia-resolved - replaced # Hypomagnesemia- resolved - replaced Dispo: transfer to rehab today Addendum - Attending - Attending Attestation Date/Time: 06/04/18 2960 I personally evaluated the patient and discussed the management with Dr. Michael Piper I agree with the History, Examination, Assessment and Plan documented above with any addition or exceptions noted below. Patient with gout right ankle limited options with GI bleed for trial colchicine 0.6 mg with hepatic precautions for gout consider intra-articular steroid prn dismissal today with close outpatient f/u.
[2018-06-04] MEDS: Carvedilol 3.125 MG TAB PO SCH ×2 (08:49→18:00)
[2018-06-04] MEDS: Furosemide 20 MG TAB PO SCH (08:49)
[2018-06-04 08:50] VITALS: BP 113/65
[2018-06-04] MEDS: Pantoprazole 40 MG VIAL IVP SCH (08:50)
[2018-06-04] MEDS: Magnesium Chloride 64 MG TAB PO SCH (08:50)
[2018-06-04] MEDS ORDERED: Lisinopril 2.5 MG TAB PO SCH (09:00)
[2018-06-04 09:24] VITALS: TEMP 98.2
--- NOTE | 2018-06-04 09:32 | PDOC.EVN ---
Event Note - Event Note Event Note: added colchine for gout flare 0.3 mg, lower dose because of interaction with carvedilol discussed risk/benefits patient would like to try med
--- NOTE | 2018-06-04 09:38 | RAD ---
RIGHT ANKLE 3 VIEWS: HISTORY: Right ankle pain. FINDINGS: Ankle mortise and talar dome are intact. Mild osteophytosis. No acute fracture, dislocation, or agg ressive osseous erosions. IMPRESSION: Mild degenerative changes right ankle. POS: NICOLASA
--- NOTE | 2018-06-04 15:24 | PDOC.CTH ---
Cardiology Progress Note - Subjective No complaints other than gout to his right foot and ankle. - Objective Vital Signs Temp Pulse Resp BP BP Pulse Ox 06/04/18 08:48 83 113/65 06/04/18 08:20 98.2 F 82 18 113/65 94 L 06/04/18 08:00 94 L Admit Weight 169 lb Weight 164 lb 6.4 oz 06/03/18 06/04/18 06/05/18 06:59 06:59 06:59 Intake Total 4806 2990 30 Output Total 475 600 Balance 4331 2390 30 - Physical Examination General/Neuro: alert & oriented x3 Neck: no JVD present Lungs: CTA Heart: RRR Abdomen: NT/ND Extremities: other: (no edema) - Telemetry Telemetry Rhythm: none - Labs Result Diagrams: 06/03/18 17:00 06/04/18 05:27 - Assessment/Plan 1. Chronic systolic CHF 2. s/p ICD placement 3. MR s/p mitral valve clip 4. GIB Stable from CV standpoint. No changes to care. Will see as needed/if called.
--- NOTE | 2018-06-04 15:50 | DIS ---
DATE OF ADMISSION: 05/28/2018 DATE OF DISCHARGE: 06/04/2018 RESIDENT: Rafael Piper MD CONSULTS: Oncology, Cardiology, Pulmonology, Wound Care, GI. PROCEDURES: Esophagogastroduodenoscopy for cauterization of bleeding duodenal ulcer. PRIMARY DIAGNOSIS: Acute upper gastrointestinal bleed. SECONDARY DIAGNOSES: Congestive heart failure, symptomatic anemia, hypokalemia, hypomagnesemia, malignant tumor of pyriform sinus, physical deconditioning, pulmonary artery hypertension, gout flare. DISCHARGE MEDICATIONS: 1. Colchicine 0.3 mg p.o. b.i.d. for 3 days. 2. Lasix 20 mg b.i.d. 3. Lisinopril 25 mg daily. 4. Magnesium chloride 64 mg p.o. b.i.d. for 10 days. 5. Tramadol 50 mg q.6 hours p.r.n. for 5 days. 6. Carvedilol 3.125 mg b.i.d. 7. DuoNeb as needed. HISTORY OF PRESENT ILLNESS AND HOSPITAL COURSE: This is a 68-year-old male, who has CHF, pacemaker, coronary artery disease, status post stent, and cancer affecting throat, who presented on 05/28 with fatigue and 2 melenic stool, and was admitted for acute symptomatic GI bleed and anemia. The patient had an EGD, which showed bleeding ulcer in the first part of his duodenum and was injected with epi and cauterized with good hemostasis. Pulsatile vessel was found below the ulcer. Hemoglobin was initially low at 6.8, but was doing well overall. Needed a transfusion on 06/03/2018 because of low hemoglobin. GI saw the patient and deemed him okay for discharge. He will need to follow up with GI in 1 week to 2 weeks for followup. The patient will continue to have melenic stools for 1 to 2 weeks based on the upper GI bleed. Cancer affecting throat. The patient is status post chemoradiation. The patient has PEG tube in place for feeds secondary to chronic dysphagia. The patient was not having signs of acute exacerbation during the stay. Echo was found to have EF of 25% to 30% with an elevated pulmonary artery pressure. Dr. Brennan was consulted. He had added lisinopril to the patient's current regimen. The elevated pulmonary artery hypertension appears to be secondary to the patient's heart failure. The patient will follow up with Cardiology as outpatient. Day before discharge, the patient started to complain of sudden onset of right ankle pain. He said this was fairly similar to gout flare that he had in the past. Uric acid level was found to be 6.4, which is on the high end of normal limits. Indomethacin and steroids could not be used because of the patient's recent GI bleed. The patient was given tramadol and colchicine. The tramadol gave the patient decent relief, but not sufficient, so colchicine was started. Risks of liver toxicity when taken concurrently with carvedilol were discussed with the patient and the patient stated that he did want to start taking a short course of low dose colchicine. Ankle x-ray was negative for acute process of the right ankle. There was no swelling on the right side as compared to the left. No erythema. CONDITION: Stable. DISCHARGE INSTRUCTIONS: Location: Rehab. Diet: Tube feeds, liquid diet as tolerated. Activities: As tolerated. Followup: Primary care provider within 1 week; Dr. Gonzalez, GI in 14 days; and Dr. Kohler, Oncology in 7 days; Dr. Castañeda, Cardiology in 14 days. DISPOSITION: The patient will be discharged to inpatient rehab for further PT and OT treatment. Job ID: [id number] MTDD
[2018-06-04] MEDS ORDERED: Colchicine 0.3 MG TAB PO SCH (21:00)
[2018-06-04] MEDS ORDERED: Atorvastatin Calcium 20 MG TAB PO SCH (21:00)
== END 2018-06-04 17:28 | DRG 377 ==
LOC: ERS 18:48 → ERHOLD 20:00 → CCU 05-29 03:56 → ONC 05-31 13:26
PROVIDERS: ADMIT Family Medicine; ATTEND Family Medicine
PROC: 30233N1 Transfusion of Nonautologous Red Blood Cells into Peripheral Vein, Percutaneous Approach (ICD-10-PCS; 2018-05-28)
PROC: 0DH63UZ Insertion of Feeding Device into Stomach, Percutaneous Approach (ICD-10-PCS; 2018-05-28)
PROC: 0W3P8ZZ Control Bleeding in Gastrointestinal Tract, Via Natural or Artificial Opening Endoscopic (ICD-10-PCS; principal; 2018-05-29)
PROC: 05HM33Z Insertion of Infusion Device into Right Internal Jugular Vein, Percutaneous Approach (ICD-10-PCS; 2018-05-29)
PROC: B543ZZA Ultrasonography of Right Jugular Veins, Guidance (ICD-10-PCS; 2018-05-29)
PROC: 5A1935Z Respiratory Ventilation, Less than 24 Consecutive Hours (ICD-10-PCS; 2018-05-29)
PROC: 0BH17EZ Insertion of Endotracheal Airway into Trachea, Via Natural or Artificial Opening (ICD-10-PCS; 2018-05-29)
DX: K25.0 Acute gastric ulcer with hemorrhage (principal); J96.01 Acute respiratory failure with hypoxia; N17.9 Acute kidney failure, unspecified; I50.22 Chronic systolic (congestive) heart failure; D62 Acute posthemorrhagic anemia; K52.1 Toxic gastroenteritis and colitis; I42.9 Cardiomyopathy, unspecified; J44.1 Chronic obstructive pulmonary disease with (acute) exacerbation; C12 Malignant neoplasm of pyriform sinus; E87.6 Hypokalemia; E83.42 Hypomagnesemia; M10.9 Gout, unspecified; I25.10 Atherosclerotic heart disease of native coronary artery without angina pectoris; Z95.5 Presence of coronary angioplasty implant and graft; K80.50 Calculus of bile duct without cholangitis or cholecystitis without obstruction; T36.95XA Adverse effect of unspecified systemic antibiotic, initial encounter; Y92.239 Unspecified place in hospital as the place of occurrence of the external cause; Z92.3 Personal history of irradiation; Z87.891 Personal history of nicotine dependence; Z79.899 Other long term (current) drug therapy; Z95.810 Presence of automatic (implantable) cardiac defibrillator; F10.10 Alcohol abuse, uncomplicated; I27.21 Secondary pulmonary arterial hypertension; E83.39 Other disorders of phosphorus metabolism; Z88.8 Allergy status to other drugs, medicaments and biological substances; Z79.82 Long term (current) use of aspirin
CPT/HCPCS: 36415; 36430; 36556; 51702; 71045; 77336; 77386; 80048; 80053; 81003; 82248; 82274; 83036; 83615; 83735; 84100; 84550; 85014; 85018; 85025; 85610; 85730; 86850; 86900; 86901; 87338; 93005; 93306; 93798; 94002; 94003; 96361; 96374; 96375; C9113; G8978-GP-CK; G8979-GP-CI; G8987-GO-CK; G8988-GO-CJ; J0171; J0696; J1642; J2060; J2405; J2704; J3475; J3480; J7050; P9016; P9035; P9059

== ENCOUNTER 2018-06-05 16:14 | Inpatient (IN) | payer MEDICARE ==
[2018-06-05] MEDS ORDERED: Pantoprazole 40 MG VIAL IVP SCH (17:15)
[2018-06-05 17:18] LABS: Hemoglobin 7.2 g/dL (14.0-18.0); Mean Corpuscular HGB CONC 34.7 g/dL (32.0-36.0); Mean Corpuscular Hemoglobin 30.6 pg (27.0-31.0); Mean Corpuscular Volume 88.3 fL (78.0-98.0); Platelet Count 147 thou/uL (130-400); RBC Distribution Width 14.6 % (11.5-14.5); Red Blood Cell (RBC) Count 2.35 mill/uL (4.70-6.10); White Blood Cell (WBC) Count 8.3 thou/uL (4.8-10.8)
[2018-06-05 17:28] LABS: INR-International Normal Ratio 1.2
[2018-06-05 17:35] LABS: Anisocytosis SLIGHT = 6-15 cells (100X) (0-5/hpf); Band 18 % (5-11); Lymphocytes 1 % (21-51); MDiff Complete? YES; Metamyelocyte 2 % (0-0); Monocytes 12 % (0-10); Myelocyte 1 % (0-0); Neutrophil 66 % (42-75); Ovalocytes SLIGHT = 2-5 cells (100X) (0-1/hpf); PLT Morphology Comment Appears Adequate; Polychromasia SLIGHT = 2-3 cells (100X) (0-2/hpf)
[2018-06-05 18:00] LABS: CKMB 1.2 ng/mL (0-6.6)
[2018-06-05 18:18] LABS: ALT (SGPT) 10 U/L (8-55); AST (SGOT) 15 U/L (5-34); Albumin 2.8 g/dL (3.4-4.8); Alkaline Phosphatase 45 U/L (40-150); Anion Gap 13 mmol/L (10-20); BUN (Urea Nitrogen) 41 mg/dL (8.4-25.7); Bilirubin, Total 0.4 mg/dL (0.2-1.2); Calc. Creatinine Clearance 0 mL/min (70-130); Calcium 8.5 mg/dL (7.8-10.44); Carbon Dioxide 23 mmol/L (23-31); Chloride 99 mmol/L (98-107); Estimated GFR-MDRD 66; Globulin 2.8 g/dL (2.4-3.5); Glucose 100 mg/dL (80-115); Potassium 4.3 mmol/L (3.5-5.1); Protein, Total 5.6 g/dL (5.8-8.1); Sodium 131 mmol/L (136-145)
[2018-06-05] MEDS ORDERED: Succinylcholine Chloride 20 MG/ML 10 ml SYRINGE FS ONE (20:29)
[2018-06-05] MEDS ORDERED: PROPOFOL 200 MG/20 ML VIAL ONE (20:29)
[2018-06-05] MEDS ORDERED: EPINEPHrine 1 MG/10 ML Abboject SYRINGE ONE (20:29)
[2018-06-05] MEDS ORDERED: PHENYLEPHRINE-NS 100 MCG/ML 10 ML SYRINGE ONE (20:29)
[2018-06-05] MEDS ORDERED: Promethazine HCl 25 MG/ML VIAL IM PRN (21:18)
[2018-06-05] MEDS ORDERED: Promethazine HCl 25 MG/ML VIAL SLOW IVP PRN (21:18)
[2018-06-05] MEDS ORDERED: Ondansetron HCl/PF 4 MG/2 ML Vial IVP PRN (21:18)
--- NOTE | 2018-06-05 21:37 | CON ---
DATE OF CONSULTATION: 06/05/2018 TYPE OF CONSULTATION: Gastroenterology. CHIEF COMPLAINT: Blood in the stool. HISTORY OF PRESENT ILLNESS: Mr. Sharp is a 68-year-old man, who was just discharged from the hospital yesterday after an admission with an upper GI bleed. Dr. Gonzalez performed upper endoscopy on 05/29/2018 and found a large visible vessel and a cratered duodenal ulcer. This vessel was cauterized and he did well after that. During that hospitalization, he required 6 units of blood transfusion. His discharge hemoglobin day before yesterday was 9.5, hemoglobin today is down to 7.6. He reports 3 red bloody stools today starting this morning; the last one was a couple of hours ago. He has no abdominal pain. No nausea, vomiting. No diarrhea or constipation otherwise. His blood pressure was noted to be low, but does not feel dizzy or lightheaded. Blood pressure on presentation was in the 70s to 80s systolic. PAST MEDICAL HISTORY: 1. Coronary artery disease with prior coronary stents, pacemaker with defibrillator placement. 2. Has history of cancer of the piriform sinus. 3. He has peripheral vascular stents as well. 4. Prior echocardiogram showing reduced ejection fraction at 30% to 35% with [id number] mitral regurgitation, severe tricuspid regurgitation. He was evaluated by Cardiology yesterday without any acute issues noted at the time. PAST SURGICAL HISTORY: Pacemaker placement, PEG tube placement, and MediPort. FAMILY HISTORY: Negative for GI malignancy. SOCIAL HISTORY: He has been a smoker. No drugs or alcohol. ALLERGIES: CILOSTAZOL. MEDICATIONS: According to the discharge summary from yesterday include; 1. Colchicine. 2. Lasix. 3. Lisinopril. 4. Magnesium. 5. Tramadol. 6. Carvedilol. 7. DuoNeb. He had been on aspirin and Plavix in the past, but these have been held since his prior endoscopy. REVIEW OF SYSTEMS: Negative x10 systems reviewed except as stated in history of present illness. PHYSICAL EXAMINATION: VITAL SIGNS: His pulse on admission was in the one teens; after 1 L of fluid, his pulse is down to the 80s He has been afebrile. GENERAL: He is in no acute distress. He is pale, alert, and oriented x3. HEENT: Eyes have no scleral icterus. Oropharynx is clear without lesions. No cervical or supraclavicular lymphadenopathy. LUNGS: Clear to auscultation bilaterally. HEART: Regular rate and rhythm. ABDOMEN: Soft, nontender, and nondistended. Bowel sounds are present. EXTREMITIES: No lower extremity edema. LABORATORY DATA: Creatinine 1.04. INR was 1.2 on 05/28/2018. White blood cell count 7.8, hemoglobin 7.6, and platelets 159. IMPRESSION: Recurrent gastrointestinal bleed, passing red bloody stools, status post cautery of a large visible vessel in the duodenum and a cratered duodenal ulcer. The cautery of this vessel was on 05/29. He is likely now re-bleeding from the same site. RECOMMENDATIONS: 1. Pantoprazole drip. 2. Repeat EGD this evening. Job ID: [id number]
[2018-06-05] MEDS ORDERED: Ondansetron PF 4 MG/2 ML Vial ONE (21:39)
[2018-06-05] MEDS ORDERED: Fentanyl 100 MCG/2 ML VIAL ONE (21:48)
[2018-06-05] MEDS ORDERED: Zolpidem Tartrate 5 MG TAB PO PRN (22:16)
[2018-06-05] MEDS ORDERED: Bisacodyl 5 MG TAB PO PRN (22:16)
[2018-06-05] MEDS ORDERED: Acetaminophen 325 MG TAB PO PRN (22:16)
[2018-06-05] MEDS ORDERED: Ondansetron ODT 4 MG TAB PO PRN (22:16)
[2018-06-05] MEDS ORDERED: Ondansetron PF 4 MG/2 ML Vial IVP PRN (22:16)
[2018-06-05] MEDS ORDERED: Acetaminophen 650 MG Suppository PR PRN (22:16)
[2018-06-05] MEDS ORDERED: Senokot S 8.6-50 MG TAB PO PRN (22:16)
[2018-06-05] MEDS ORDERED: Promethazine HCl 25 MG/ML VIAL ONE (22:27)
[2018-06-05] MEDS ORDERED: Sodium Chloride 0.9% 1,000 ML IV SCH (22:30)
--- NOTE | 2018-06-05 22:32 | PDOC.FPRHP ---
- History of Present Illness Chief Complaint: hematochezia History of Present Illness: Patient is a 68 yo M with CHF, throat malignancy, and HTN who was admitted on for anemia 2/2 UGI bleed. An EGD at that time showed a bleeding duodenal ulcer (with underlying pulsatile vessel) that was injected with epinephrine, cauterized, and had good hemostasis. He was given 6 units of blood. Patient was discharged yesterday to SNF. Today the patient had 3 episodes of hematochezia. On presentation, he was tachycardic and hypotensive. His hemoglobin had dropped from 9.5 on discharge to 7.2. He was given [address] Gan was consulted and performed an EGD, which revealed the 2 cm bleeding ulcer. He injected epinephrine and cauterized the ulcer. He was placed on protonix drip and admitted to the [facility]. He reports mid epigastric pain that is dull and intermittent. He reports fatigue , diffuse weakness, nausea with no vomiting, and 3 episodes bloody diarrhea. He denies lightheadedness, dizziness, or headache. Denies focal weakness. He also reports pain in bilateral ankles from a gout flare. - Allergies/Adverse Reactions Allergies Allergy/AdvReac Type Severity Reaction Status Date / Time cilostazol [From Pletal] Allergy Rash Verified 03/27/18 12:31 - Home Medications Medication Instructions Recorded Confirmed Type Carvedilol [Coreg] 3.125 mg PO BID-WM #60 tab 07/06/16 06/06/18 Rx Ipratropium/Albuterol Sulfate 3 ml NEB [id number] #30 neb 07/06/16 06/06/18 Rx [DuoNeb] Nicotine [Nicoderm CQ] 21 mg TD 1500 #30 patch 07/06/16 06/06/18 Rx Garlic 1,500 mg PO DAILY 03/27/18 06/06/18 History Potassium 1 tab PO DAILY 03/27/18 06/06/18 History Turmeric Root Extract [Turmeric] 500 mg PO DAILY 03/27/18 06/06/18 History Colchicine [Colcrys] 0.3 mg PO BID 3 Days #5 tab 06/04/18 06/06/18 Rx Furosemide [Lasix] 20 mg PO BID 30 Days #60 tab 06/04/18 06/06/18 Rx Lisinopril [Zestril] 2.5 mg PO DAILY 30 Days #30 tab 06/04/18 06/06/18 Rx Magnesium Chloride [Slow-Mag] 64 mg PO BID 10 Days #20 tab 06/04/18 06/06/18 Rx traMADol HCl [Ultram] 50 mg PO Q6H PRN 5 Days #20 tab 06/04/18 06/06/18 Rx - History PMHx: HFrEF s/p pacemaker (EF 25-30%), CAD s/p 2 stents, malignancy of piriform sinus PSHx: pacemaker, peg tube, mediport FHx: noncontributory Social: Current tobacco use (1-2 cig/day) on nicotine patch, denies alcohol or drug use - Review of Systems General: denies: fever/chills, weight/appetite/sleep changes Eyes: denies: eye pain, vision changes ENT: denies: nasal congestion Respiratory: denies: cough, congestion Cardiovascular: denies: chest pain, palpitation, edema Gastrointestinal: reports: nausea, diarrhea, abdominal pain, GI bleeding. denies: vomiting, constipation Genitourinary: denies: dysuria, polyuria Skin: denies: rashes, lesions Musculoskeletal: reports: pain. denies: tenderness Neurological: reports: weakness. denies: numbness Psychological: denies: anxiety, depression - Vital signs BP: [124/65] HR: [82] RR: [16] Tmax: [98.3] Pox: [100]% on [RA] Wt: [] - Physical Exam -Constitutional: Falls asleep during exam, slow to answer. Nurse reports he was drowsy after phenergan. Very pale face and extremities. HEENT: normocephalic and atraumatic, PERRLA, grossly normal hearing, MMM, oropharynx clear Neck: supple, trachea midline, no LAD Heart: RRR, normal S1/S2, no murmurs/rubs/gallops Lungs: CTAB, no respiratory distress, good air movement Abdomen: soft, bowel sounds present, other (Mid epigastrium minimally tender to palpation) Musculoskeletal: normal structure, normal tone, ROM grossly normal Neurological: no focal deficit, CN II-XII intact, normal sensation Skin: no rash/lesions, other (Poor turgur, pale face and extremities, cap refill >2 seconds) Heme/Lymphatic: other (Pale face and extremities, sclera pale) Psychiatric: other (sleepy, slow to respond to questions, intact memory) FMR H&P: Results - Labs Result Diagrams: 06/05/18 17:05 06/05/18 16:24 Lab results: WBC 8.3 thou/uL (4.8-10.8) 06/05/18 17:05 Hgb 7.2 g/dL (14.0-18.0) L 06/05/18 17:05 Hct 20.7 % (42.0-52.0) L 06/05/18 17:05 MCV 88.3 fL (78.0-98.0) 06/05/18 17:05 Plt Count 147 thou/uL (130-400) 06/05/18 17:05 Band Neuts % (Manual) 18 % (5-11) H 06/05/18 17:05 Sodium 131 mmol/L (136-145) L 06/05/18 16:24 Potassium 4.3 mmol/L (3.5-5.1) 06/05/18 16:24 Chloride 99 mmol/L (98-107) 06/05/18 16:24 Carbon Dioxide 23 mmol/L (23-31) 06/05/18 16:24 BUN 41 mg/dL (8.4-25.7) H 06/05/18 16:24 Creatinine 1.12 mg/dL (0.7-1.3) 06/05/18 16:24 Glucose 100 mg/dL (80-115) 06/05/18 16:24 Lactic Acid 1.4 mmol/L (0.5-2.2) 06/05/18 17:05 Calcium 8.5 mg/dL (7.8-10.44) 06/05/18 16:24 Total Bilirubin 0.4 mg/dL (0.2-1.2) 06/05/18 16:24 AST 15 U/L (5-34) 06/05/18 16:24 ALT 10 U/L (8-55) 06/05/18 16:24 Alkaline Phosphatase 45 U/L (40-150) 06/05/18 16:24 CK-MB (CK-2) 1.2 ng/mL (0-6.6) 06/05/18 17:05 Serum Total Protein 5.6 g/dL (5.8-8.1) L 06/05/18 16:24 Albumin 2.8 g/dL (3.4-4.8) L 06/05/18 16:24 - EKG Interpretation EKG: Sinus rhythm T wave inversions in leads I, II, AVL, and AVR FMR H&P: A/P - Problem List (1) Symptomatic anemia Current Visit: No Status: Acute Code(s): D64.9 - ANEMIA, UNSPECIFIED (2) Acute gastrointestinal bleeding Current Visit: No Status: Acute Code(s): K92.2 - GASTROINTESTINAL HEMORRHAGE , UNSPECIFIED (3) Hypomagnesemia Current Visit: No Status: Acute Code(s): E83.42 - HYPOMAGNESEMIA (4) Malignant tumor of pyriform sinus Current Visit: No Status: Chronic Code(s): C12 - MALIGNANT NEOPLASM OF PYRIFORM SINUS (5) Physical deconditioning Current Visit: No Status: Chronic Code(s): R53.81 - OTHER MALAISE (6) Pulmonary arterial hypertension Current Visit: No Status: Chronic Code(s): I27.21 - SECONDARY PULMONARY ARTERIAL HYPERTENSION (7) Tobacco abuse Current Visit: No Status: Chronic Code(s): Z72.0 - TOBACCO USE (8) CAD (coronary artery disease) Current Visit: No Status: Chronic Code(s): I25.10 - ATHSCL HEART DISEASE OF [place] CORONARY ARTERY W/O ANG PCTRS (9) CHF (congestive heart failure) Current Visit: No Status: Chronic Code(s): I50.9 - HEART FAILURE, UNSPECIFIED (10) HLD (hyperlipidemia) Current Visit: No Status: Chronic Code(s): E78.5 - HYPERLIPIDEMIA, UNSPECIFIED (11) PAD (peripheral artery disease) Current Visit: No Status: Chronic Code(s): I73.9 - PERIPHERAL VASCULAR DISEASE, UNSPECIFIED Comment: s/p B/L stenting - Plan # Symptomatic anemia secondary to acute GI bleed - Presented with 3 episodes bloody loose stools - Hgb 9.5 on discharge yesterday to 7.2 on admission; hypotensive tachycardic - Tachycardia/hypotension improved with 1L NS - INR 1.2 - Dr. Gan consulted: EGD showed bleeding 2 cm duodenal ulcer, hemostatic with epinephrine and cautery - IMCU for 3 days protonix drip - Transfuse 2 units leukoreduced PRBCs, each unit followed by 40 mg IV lasix ( patient has concomittant CHF) - Hemagram 4 hrs after second unit transfused - Diet: start clears tomorrow # CHF - currently stable with no clinical signs of overload. - ECHO showed EF of 23-30% - s/p AICD - to f/u with HF clinic outpt - trop .074, improved from .176, most likely demand ischemia # Bilateral Ankle pain 2/2 Gout - hx of gout - cannnot use NSAIDS or steroids 2/2 GI bleed - continue tramadol and colchicine #Hypomagnesemia - continue magnesium BID - CMP with mag @ 1400 #Hyponatremia - continue to monitor - CMP @ 1400 # Malignancy of piriformis sinus - continue treatment with onc - continues to follow with Dr. Kohler # Pulmonary artery HTN - Identified on recent echo. PA pressure in 70s - likely 2/2 CHF, to f/u with HF clinic, Cardiology # Deconditioning - consult PT/OT - plan to send to SNF upon discharge #Tobacco abuse -Nicotine patch # HTN - continue home medications # HLD - continue home medications Dispo: >3 nights Diet: NPO, start clears tomorrow, consider advancing tomorrow afternoon if patient tolerates DVT Ppx: SCDs, will not give anticoagulation as patient at high risk of rebleeding Code status: Full code FMR H&P: Upper Level - Pertinent history 68 yo WM PMH recent duodenal ulcer s/p EGD with epi injection and cauterization , HFrEF (25-30%) s/p pacemaker and AICD placement, and recent piriform sinus malignancy s/p chemo and radiation. Presents form [facility] following 3 large grossly bloody bowel movements today. Most recent BM was approximately 2 hours SOL[employer] F[employer]. Dr. Gan (GI) was consulted in the ER and recommended the patient undergo urgent EGD to identify the source of bleeding. Dr. Gan stated he found a 1.8 cm duodenal ulcer with pulsating vessels at the base. He stated he injected epinephrine around the site and cauterized over the vessels. Does not believe he needs surgical consultation at this time. Review of chart shows patient has had a 2.5 mg/dL drop in his hemoglobin since 12/29. I spoke with the patient's son and daughter in law who agreed with the history given by the patient. ER: labs, type and cross 2 units (not given), protonix, NS1L. Vitals stabilized after 1L NS. - Pertinent findings Vitals: BP 112/67, pulse 79, resp 15, SpO2 100% on RA GEN: NAD, resting but awakens easily to verbal stimuli. Patient was recovering from anesthesia at time of examination Eyes: conjunctival palor CV: RRR, no murmur Pulm: CTA-B, normal effort ABD: mild abdominal distention and diffuse TTP. Ext: no cyanosis or edema. Labs: H&H 7.2/20.7, trop 0.074 - Plan Date/Time: 06/05/18 2420 I, Jeyson Nolasco MD, have evaluated this patient and agree with findings/plan as outlined by software development intern resident. Pertinent changes/additions are listed here. 1. Acute Upper GI Bleed 2/2 duodenal ulcer- patient is s/p EGD with epi injection and cauterization. Spoke with Dr. Gan who recommnded protonix GTT x3 days and for transfusion of 2 units PRBC tonight. Will give Lasix 40 mg IVP after each unit given the patient's HFrEF. Will check H&H 4 hours after second unit PRBC. Will start clear liquid diet per Dr. Gan's recommendation and advance tomorrow afternoon if no signs of re-bleeding. Will monitor in IMCU overnight and could possibly transfer to floor tomorrow if stable. 2. HFrEF- monitor fluid status 3. Gout flair- continue colchicine 4. Piriform sinus malignancy- has completed chemo and radiation, f/u outpatient. 5. HLD- home meds. 6. Diet: clear liquids 7. PPx: SCD 8. CODE STATUS: FULL. discussed with patient and family. DISPO: inpatient, IMCU, >[address] Taylor. Addendum - Attending - Attending Attestation Date/Time: 06/06/18 1005 I personally evaluated the patient and discussed the management with Dr. Piper and Dr Nolasco last night in the PACU, post endoscopy. I agree with the History, Examination, Assessment and Plan documented above with any addition or exceptions noted below.
[2018-06-06] MEDS ORDERED: Furosemide 40 MG/4 ML VIAL SLOW IVP SCH ×2 (00:15→06:00)
--- NOTE | 2018-06-06 01:07 | OP ---
DATE OF PROCEDURE: 06/05/2018 PROCEDURE PERFORMED: Esophagogastroduodenoscopy with control of hemorrhage. PREOPERATIVE DIAGNOSES: Gastrointestinal bleed. He just underwent esophagogastroduodenoscopy with cautery of a duodenal ulcer on 05/29/2018, now presenting with recurrent bleeding. DESCRIPTION OF PROCEDURE: Informed consent was obtained from the patient. He was sedated with general anesthesia. The endoscope was advanced easily to the second portion of the duodenum and retroflexion was performed in the stomach. The esophagus was normal. The stomach was normal including retroflexed views. The pylorus was normal. There was a 1.8 cm ulcer, which was cratered in the first portion of the duodenum. There was a protuberant visible vessel in the base of this. I am unable to visualize this well with the forward viewing endoscope and could not rotate it well enough to get the gold probe in good position. For that, I did inject in four quadrants with 5 mL of epinephrine around the ulcer with good blanching of the site. I then changed to a side-viewing duodenoscope with which I could visualize the ulcer base well. The 10-Russian gold probe could not be angled well with the elevator and therefore, exchange was made for a 7-Russian gold probe and the vessel was cauterized at 20 bush with good hemostasis achieved. The vessel did bleed actively when initially touched. IMPRESSION: 1. Ulcer in the first portion of the duodenum, which was cratered measuring 1.8 cm in diameter with protuberant red visible vessel in the base of the ulcer. It also was injected with 5 mL of epinephrine 1:10,000 in four quadrants. The vessel was cauterized with a 7-Russian gold probe with good hemostasis achieved. 2. A gastrostomy tube was noted to be in place in the body of the stomach. RECOMMENDATIONS: 1. Proton pump inhibitor drip. 2. Clear liquid diet. 3. Follow trend of the hemoglobin. Job ID: [id number]
[2018-06-06] MEDS ORDERED: Sodium Chloride 0.9% 1,000 ML IV SCH (01:15)
[2018-06-06] MEDS: Pantoprazole 80 MG in Sodium Chloride 0.9% 100 ML IVP SCH ×3 (01:57→23:17)
[2018-06-06] MEDS ORDERED: Furosemide 20 MG TAB PO SCH (06:00)
--- NOTE | 2018-06-06 08:00 | PDOC.FM ---
- Subjective Subjective: This AM patient states he is feeling well overall, he has mild sore throat since the EGD last night. He denies any bowel movements overnight. He denies SOB or wheezing. He denies abdominal pain at this time. Patient is quite sleepy at time of exam but is arousable. He received 2U prbc's overnight, cbc pending. - Objective Vital Signs & Weight: Vital Signs (12 hours) Temp Pulse Pulse Resp BP BP Pulse Ox 06/06/18 07:40 78 17 99 06/06/18 07:28 98.0 F 79 18 109/55 L 98 06/06/18 07:01 97.0 F L 72 12 107/51 L 100 06/06/18 04:29 97.2 F L 76 13 115/66 100 06/06/18 04:10 97.3 F L 73 14 113/62 99 06/06/18 04:00 97.3 F L 75 18 102/59 L 99 06/06/18 03:45 97.2 F L 71 12 105/53 L 99 06/06/18 01:07 97.4 F L 68 13 95/59 L 100 06/06/18 01:03 75 12 100 06/06/18 00:40 97.8 F 71 12 84/48 L 100 06/06/18 00:05 100 06/05/18 23:47 97.5 F L 80 15 112/61 100 Weight Weight 76.657 kg I&O: 06/05/18 06/06/18 06/07/18 06:59 06:59 06:59 Intake Total 1390 350 Output Total 400 Balance 990 350 Result Diagrams: 06/06/18 09:37 06/06/18 09:37 Phys Exam - Physical Examination Constitutional: NAD HEENT: PERRLA, moist MMs Neck: no nodes Respiratory: no wheezing, clear to auscultation bilateral Cardiovascular: RRR, no significant murmur Gastrointestinal: soft mild tenderness to palpation throughout Musculoskeletal: no edema, pulses present Neurological: non-focal, moves all 4 limbs Psychiatric: normal affect, A&O x 3 Skin: cap refill <2 seconds Dx/Plan (1) Acute gastrointestinal bleeding Code(s): K92.2 - GASTROINTESTINAL HEMORRHAGE, UNSPECIFIED Status: Acute (2) Hypomagnesemia Code(s): E83.42 - HYPOMAGNESEMIA Status: Acute (3) Symptomatic anemia Code(s): D64.9 - ANEMIA, UNSPECIFIED Status: Acute (4) AICD (automatic cardioverter/defibrillator) present Code(s): Z95.810 - PRESENCE OF AUTOMATIC (IMPLANTABLE) CARDIAC DEFIBRILLATOR Status: Chronic (5) CAD (coronary artery disease) Code(s): I25.10 - ATHSCL HEART DISEASE OF [place] CORONARY ARTERY W/O ANG PCTRS Status: Chronic (6) CHF (congestive heart failure) Code(s): I50.9 - HEART FAILURE, UNSPECIFIED Status: Chronic (7) HLD (hyperlipidemia) Code(s): E78.5 - HYPERLIPIDEMIA, UNSPECIFIED Status: Chronic (8) Malignant tumor of pyriform sinus Code(s): C12 - MALIGNANT NEOPLASM OF PYRIFORM SINUS Status: Chronic (9) Physical deconditioning Code(s): R53.81 - OTHER MALAISE Status: Chronic (10) Pulmonary arterial hypertension Code(s): I27.21 - SECONDARY PULMONARY ARTERIAL HYPERTENSION Status: Chronic - Plan Plan: # Symptomatic anemia secondary to acute GI bleed - Presented with 3 episodes bloody loose stools - Hgb 9.5 on discharge yesterday to 7.2 on admission; repeat CBC s/p 2 U prbc pending - s/p EGD, 1.8 cm bleeding duodenal ulcer - Tachycardia/hypotension improved with 1L NS - 3 days protonix drip per GI started 06/05 - GI consulted, recs appreciated # Malignancy of piriformis sinus - has completed chemo/radiation - continues to follow with Dr. Kohler # CHF not in acute exacerbation - currently stable with no clinical signs of overload. - ECHO showed EF of 23-30% - s/p AICD - will monitor for fluid overload and give lasix as needed # Bilateral Ankle pain 2/2 Gout - hx of gout - cannnot use NSAIDS or steroids 2/2 GI bleed - continue tramadol and colchicine # Pulmonary artery HTN - Identified on recent echo. PA pressure in 70s - likely 2/2 CHF, to f/u with HF clinic, Cardiology outpatient - seen by cardiology 06/04 #Hypomagnesemia #Hyponatremia # Deconditioning - PT/OT #Tobacco abuse -Nicotine patch # HTN - continue home medications # HLD - continue home medications Dispo: >3 nights Diet: clears, nutrition consulted DVT Ppx: SCDs Code status: Full code Addendum - Attending - Attending Attestation Date/Time: 06/06/18 1333 I personally evaluated the patient and discussed the management with Dr. Piper. I agree with the History, Examination, Assessment and Plan documented above with any addition or exceptions noted below. The patient was admitted with recurrent GI bleed due to duodenal ulcer. Pt will remain on protonix drip. Will trend h/h. Consult PT as pt states he will not go back to inpatient rehab. Pt is also on colchicine for gout flair.
[2018-06-06] MEDS ORDERED: Pantoprazole 40 MG VIAL IVP SCH (09:00)
[2018-06-06] MEDS: Colchicine 0.3 MG TAB PO SCH ×2 (09:31→20:50)
[2018-06-06] MEDS: Carvedilol 3.125 MG TAB PO SCH ×2 (09:31→16:29)
[2018-06-06] MEDS: Lisinopril 2.5 MG TAB PO SCH (09:32)
[2018-06-06] MEDS: Magnesium Chloride 64 MG TAB PO SCH ×2 (09:33→20:50)
[2018-06-06 10:13] LABS: Hemoglobin 8.4 g/dL (14.0-18.0); Mean Corpuscular HGB CONC 35.3 g/dL (32.0-36.0); Mean Corpuscular Hemoglobin 30.4 pg (27.0-31.0); Mean Corpuscular Volume 86.2 fL (78.0-98.0); RBC Distribution Width 15.4 % (11.5-14.5); Red Blood Cell (RBC) Count 2.75 mill/uL (4.70-6.10)
[2018-06-06 10:21] LABS: ALT (SGPT) 7 U/L (8-55); AST (SGOT) 15 U/L (5-34); Albumin 2.7 g/dL (3.4-4.8); Alkaline Phosphatase 45 U/L (40-150); Anion Gap 13 mmol/L (10-20); BUN (Urea Nitrogen) 32 mg/dL (8.4-25.7); Bilirubin, Total 0.4 mg/dL (0.2-1.2); Calc. Creatinine Clearance 82 mL/min (70-130); Calcium 8.3 mg/dL (7.8-10.44); Carbon Dioxide 21 mmol/L (23-31); Chloride 106 mmol/L (98-107); Estimated GFR-MDRD 78; Globulin 2.6 g/dL (2.4-3.5); Glucose 91 mg/dL (80-115); Protein, Total 5.3 g/dL (5.8-8.1); Sodium 136 mmol/L (136-145)
--- NOTE | 2018-06-06 11:13 | PRG ---
DATE OF SERVICE: 06/06/2018 SUBJECTIVE: Mr. Sharp has had no further overt GI bleeding since procedure yesterday. He has no abdominal pain. OBJECTIVE: VITAL SIGNS: Temperature is 98.0, pulse 80, and blood pressure 113/61. GENERAL: He is in no acute distress. Awake, alert, and oriented x3. LUNGS: Clear to auscultation bilaterally. HEART: Regular rate and rhythm. ABDOMEN: Soft, nontender, and nondistended. Bowel sounds present. EXTREMITIES: No lower extremity edema. LABORATORY DATA: Hemoglobin is 8.4, up from 7.2 last night after 2 units transfusion. IMPRESSION: Recurrent bleed from duodenal ulcer. Visible vessel was cauterized in the base of the ulcer. Given that this is a second bleed from the same site and he has required cautery to the same site twice, we will continue with the IV proton pump inhibitor drip for 3 days. This could be stopped in the morning of June 08. His diet can be advanced today. RECOMMENDATIONS: 1. Continue proton pump inhibitor drip. 2. Monitor hemoglobin. 3. Advance diet today. Job ID: [id number]
[2018-06-06 11:29] LABS: Hemoglobin 7.4 g/dL (14.0-18.0); Mean Corpuscular HGB CONC 35.5 g/dL (32.0-36.0); Mean Corpuscular Hemoglobin 30.6 pg (27.0-31.0); Mean Corpuscular Volume 86.2 fL (78.0-98.0); Mean Platelet Volume 7.1 fL (7.4-10.4); Platelet Count 120 thou/uL (130-400); RBC Distribution Width 15.3 % (11.5-14.5); Red Blood Cell (RBC) Count 2.42 mill/uL (4.70-6.10); White Blood Cell (WBC) Count 5.9 thou/uL (4.8-10.8)
--- NOTE | 2018-06-06 11:50 | CON ---
DATE OF CONSULTATION: HISTORY OF PRESENT ILLNESS: This is a 68-year-old gentleman, who was just recently discharged from the hospital, presented to the hospital with recurrent GI bleed. Apparently, he had hematochezia and blood in his stool. He saw Dr. Lerma during the last visit more than a week ago. This morning, he said he is feeling better. Denies any chest pain, chills, sweats, hemoptysis, or shortness of breath. 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 Kohler, radiation oncologist; history of coronary artery disease; hypertension; MA. PAST SURGICAL HISTORY: Previous surgeries including previous stents in the heart and leg, MediPort, right ankle surgery, AICD placed. SOCIAL HISTORY: Tobacco, smoking about 1 or 2 cigarettes a day. Alcohol, none. MEDICATIONS: Home medicine includes tramadol 50, potassium, nicotine gums, Zestril 2.5, DuoNeb, garlic, Lasix 20, colchicine, and Coreg. ALLERGIES: PLETAL. PHYSICAL EXAMINATION: GENERAL: He appears to be in no acute distress. VITAL SIGNS: Blood pressure is 103/60, sats 100% on room air, respiratory rate 18, temperature 97, and pulse 76. CHEST: Decreased breath sounds. No wheezing. CARDIAC: Normal S1, S2. No gallops. ABDOMEN: Soft. No masses. EXTREMITIES: No edema. NEUROLOGIC: He is awake, alert, and responsive. LABORATORY DATA: H and H 7.4 and 20, white count 5000, his platelet count is 120. Lytes are normal. Liver function, albumin 2.7. IMPRESSION: 1. Status post gastrointestinal bleed. 2. Malignant lymphoma. 3. Coronary artery disease, status post AICD. PLAN: Pulmonary Critical Care will follow while in the ICU, appears to be stable. Await input from GI. Consultation note, 70 minutes, of which 50% spent in direct patient care. Job ID: [id number]
[2018-06-06 12:27] LABS: #Eosinphils 0.2 thou/uL (0.0-0.7); #Lymphocytes 0.3 thou/uL (1.20-3.40); #Monocytes 0.7 thou/uL (0.11-0.59); #Neutrophils 4.2 thou/uL (1.40-6.50); %Basophils 0.2 % (0.0-1.0); %Eosinophils 3.2 % (0.0-10.0); %Lymphocytes 6.1 % (21.0-51.0); %Monocytes 13.4 % (0.0-10.0); Mean Platelet Volume 7.2 fL (7.4-10.4); PLT Morphology Comment Appears Decreased; Platelet Count 119 thou/uL (130-400); White Blood Cell (WBC) Count 5.5 thou/uL (4.8-10.8)
[2018-06-06 15:25] LABS: #Eosinphils 0.1 thou/uL (0.0-0.7); #Lymphocytes 0.3 thou/uL (1.20-3.40); #Monocytes 0.7 thou/uL (0.11-0.59); #Neutrophils 4.2 thou/uL (1.40-6.50); %Eosinophils 2.4 % (0.0-10.0); %Lymphocytes 6.1 % (21.0-51.0); %Neutrophils 78.5 % (42.0-75.0); Hemoglobin 7.9 g/dL (14.0-18.0); Mean Corpuscular Hemoglobin 30.1 pg (27.0-31.0); Mean Corpuscular Volume 86.1 fL (78.0-98.0); Mean Platelet Volume 6.8 fL (7.4-10.4); Platelet Count 123 thou/uL (130-400); RBC Distribution Width 15.5 % (11.5-14.5); Red Blood Cell (RBC) Count 2.63 mill/uL (4.70-6.10); White Blood Cell (WBC) Count 5.3 thou/uL (4.8-10.8)
[2018-06-06 15:56] LABS: ALT (SGPT) 9 U/L (8-55); AST (SGOT) 16 U/L (5-34); Albumin 2.7 g/dL (3.4-4.8); Alkaline Phosphatase 43 U/L (40-150); Anion Gap 10 mmol/L (10-20); BUN (Urea Nitrogen) 28 mg/dL (8.4-25.7); Bilirubin, Total 0.4 mg/dL (0.2-1.2); Calc. Creatinine Clearance 81 mL/min (70-130); Calcium 8.2 mg/dL (7.8-10.44); Carbon Dioxide 22 mmol/L (23-31); Chloride 107 mmol/L (98-107); Estimated GFR-MDRD 81; Globulin 2.6 g/dL (2.4-3.5); Glucose 89 mg/dL (80-115); Magnesium 1.4 mg/dL (1.6-2.6); Potassium 4.2 mmol/L (3.5-5.1); Protein, Total 5.3 g/dL (5.8-8.1); Sodium 135 mmol/L (136-145)
[2018-06-06] MEDS: Nicotine 21 MG PATCH TD SCH (16:29)
[2018-06-06] MEDS: traMADol HCl 50 MG TAB PO PRN (18:03)
[2018-06-06 21:18] LABS: Hemoglobin 7.9 g/dL (14.0-18.0)
[2018-06-07] MEDS: traMADol HCl 50 MG TAB PO PRN ×2 (02:04→20:57)
[2018-06-07 07:06] LABS: Hemoglobin 7.7 g/dL (14.0-18.0); Mean Corpuscular HGB CONC 35.3 g/dL (32.0-36.0); Mean Corpuscular Hemoglobin 30.4 pg (27.0-31.0); Mean Corpuscular Volume 86.1 fL (78.0-98.0); Platelet Count 131 thou/uL (130-400); RBC Distribution Width 15.7 % (11.5-14.5); Red Blood Cell (RBC) Count 2.55 mill/uL (4.70-6.10); White Blood Cell (WBC) Count 4.7 thou/uL (4.8-10.8)
[2018-06-07 07:39] LABS: ALT (SGPT) 9 U/L (8-55); AST (SGOT) 16 U/L (5-34); Albumin 2.7 g/dL (3.4-4.8); Alkaline Phosphatase 47 U/L (40-150); Anion Gap 11 mmol/L (10-20); BUN (Urea Nitrogen) 24 mg/dL (8.4-25.7); Bilirubin, Total 0.4 mg/dL (0.2-1.2); Calc. Creatinine Clearance 81 mL/min (70-130); Calcium 8.4 mg/dL (7.8-10.44); Carbon Dioxide 22 mmol/L (23-31); Chloride 106 mmol/L (98-107); Estimated GFR-MDRD 80; Globulin 2.7 g/dL (2.4-3.5); Glucose 77 mg/dL (80-115); Protein, Total 5.4 g/dL (5.8-8.1); Sodium 135 mmol/L (136-145)
[2018-06-07] MEDS: Lisinopril 2.5 MG TAB PO SCH (08:00)
[2018-06-07] MEDS: Carvedilol 3.125 MG TAB PO SCH ×2 (08:00→17:21)
--- NOTE | 2018-06-07 08:56 | PDOC.FM ---
- Subjective Subjective: This AM patient states he has not had any BMs overnight. He is feeling better and wants to walk today. Patient states he has not been eating much because of sore throat from EGD, states he would like to take ensure via tube today. Patient denies CP, sob, or orthopnea. Denies N/V/D. - Objective Vital Signs & Weight: Vital Signs (12 hours) Temp Pulse Resp BP Pulse Ox 06/07/18 08:00 88 06/07/18 07:28 97.9 F 88 20 92/53 L 96 06/07/18 06:54 69 14 100 06/07/18 04:00 98.4 F 71 16 113/62 99 06/07/18 00:45 71 12 98 06/07/18 00:00 98.5 F 72 18 118/68 93 L Weight Weight 73.652 kg I&O: 06/06/18 06/07/18 06/08/18 06:59 06:59 06:59 Intake Total 1390 1130 Output Total 400 Balance 990 1130 Result Diagrams: 06/07/18 06:05 06/07/18 06:05 Phys Exam - Physical Examination Constitutional: NAD HEENT: PERRLA, moist MMs Neck: no nodes Respiratory: no wheezing, no rales, clear to auscultation bilateral Cardiovascular: RRR, no significant murmur Gastrointestinal: soft, non-tender, no distention, positive bowel sounds Musculoskeletal: no edema, pulses present Neurological: non-focal, moves all 4 limbs Psychiatric: normal affect, A&O x 3 Skin: no rash, cap refill <2 seconds Dx/Plan (1) Acute gastrointestinal bleeding Code(s): K92.2 - GASTROINTESTINAL HEMORRHAGE, UNSPECIFIED Status: Acute (2) Hypomagnesemia Code(s): E83.42 - HYPOMAGNESEMIA Status: Acute (3) Symptomatic anemia Code(s): D64.9 - ANEMIA, UNSPECIFIED Status: Acute (4) AICD (automatic cardioverter/defibrillator) present Code(s): Z95.810 - PRESENCE OF AUTOMATIC (IMPLANTABLE) CARDIAC DEFIBRILLATOR Status: Chronic (5) CAD (coronary artery disease) Code(s): I25.10 - ATHSCL HEART DISEASE OF [place] CORONARY ARTERY W/O ANG PCTRS Status: Chronic (6) CHF (congestive heart failure) Code(s): I50.9 - HEART FAILURE, UNSPECIFIED Status: Chronic (7) HLD (hyperlipidemia) Code(s): E78.5 - HYPERLIPIDEMIA, UNSPECIFIED Status: Chronic (8) Malignant tumor of pyriform sinus Code(s): C12 - MALIGNANT NEOPLASM OF PYRIFORM SINUS Status: Chronic (9) Physical deconditioning Code(s): R53.81 - OTHER MALAISE Status: Chronic (10) Pulmonary arterial hypertension Code(s): I27.21 - SECONDARY PULMONARY ARTERIAL HYPERTENSION Status: Chronic - Plan Plan: # Symptomatic anemia secondary to acute GI bleed - Presented with 3 episodes bloody loose stools, denies bm since hospitalization - hgb 7.7 this AM, BP low 90s/50s, pulse in 80s - BUN trending down - suspect will need another transfusion, will discuss on rounds - s/p EGD, 1.8 cm bleeding duodenal ulcer - 3 days protonix drip per GI started 06/05 - GI consulted, recs appreciated # Malignancy of piriformis sinus - has completed chemo/radiation - continues to follow with Dr. Kohler # CHF not in acute exacerbation - currently stable with no clinical signs of overload. - ECHO showed EF of 23-30% - s/p AICD - will monitor for fluid overload and give lasix as needed # Bilateral Ankle pain 2/2 Gout - hx of gout - cannnot use NSAIDS or steroids 2/2 GI bleed - continue tramadol and colchicine # Pulmonary artery HTN - Identified on recent echo. PA pressure in 70s - likely 2/2 CHF, to f/u with HF clinic, Cardiology outpatient - seen by cardiology 06/04 #Hypomagnesemia #Hyponatremia # Deconditioning - PT/OT #Tobacco abuse -Nicotine patch # HTN - continue home medications # HLD - continue home medications Dispo: >3 nights Diet: clears, nutrition consulted DVT Ppx: SCDs Code status: Full code Addendum - Attending - Attending Attestation Date/Time: 06/07/18 7085 I personally evaluated the patient and discussed the management with Dr. Piper. I agree with the History, Examination, Assessment and Plan documented above with any addition or exceptions noted below. Pt's blood pressure is back in the 80's systolic and H/H under 8. will transfuse 1 additional unit. Continue protonix drip. Pt interested in swing bed in [place].
[2018-06-07] MEDS: Magnesium Chloride 64 MG TAB PO SCH ×2 (10:06→20:56)
[2018-06-07] MEDS: Pantoprazole 80 MG in Sodium Chloride 0.9% 100 ML IVP SCH ×2 (10:12→22:20)
--- NOTE | 2018-06-07 10:27 | PDOC.EVN ---
Event Note - Event Note Event Note: patient states he would like to go to [facility] bed on D/c
[2018-06-07] MEDS: Colchicine 0.3 MG TAB PO SCH ×2 (10:51→20:56)
[2018-06-07 14:55] VITALS: BMI 24.0
--- NOTE | 2018-06-07 15:23 | PRG ---
DATE OF SERVICE: 06/07/2018 SUBJECTIVE: Mr. Sharp has had no further overt bleeding. He has a sore throat after endoscopy and intubation and so he fed himself through his PEG tube today. OBJECTIVE: VITAL SIGNS: Temperature 98.8, blood pressure 122/74, and pulse 72. GENERAL: He is in no acute distress. Alert and oriented x3. LUNGS: Clear to auscultation bilaterally. HEART: Regular rate and rhythm. ABDOMEN: Soft, nontender, and nondistended. Bowel sounds are present. EXTREMITIES: No lower extremity edema. IMPRESSION: 1. Anemia of acute blood loss. His hemoglobin was stable from last night to this morning. Given the low hemoglobin, he was transfused 1 unit today. 2. GI bleed secondary to duodenal ulcer. This was a recurrent bleed and he is status post cautery to visible vessel in the duodenal ulcer base. Given the recurrent bleed and recurrent cautery to the same spot, then more prolonged treatment with IV proton pump inhibitor drip is indicated. Medicine was started on the evening of 06/05/2018. We will continue this until 06/08/2018 at which point, should be able to change to pantoprazole 40 mg orally twice daily. As long as his hemoglobin remains stable without any overt bleeding then, he should be ready for discharge home at that point. RECOMMENDATIONS: Continue proton pump inhibitor, IV drip for now. Job ID: [id number]
[2018-06-07] MEDS: Nicotine 21 MG PATCH TD SCH (15:48)
[2018-06-08] MEDS: traMADol HCl 50 MG TAB PO PRN (06:19)
[2018-06-08 06:59] LABS: Hemoglobin 9.2 g/dL (14.0-18.0); Mean Corpuscular HGB CONC 35.5 g/dL (32.0-36.0); Mean Corpuscular Hemoglobin 30.5 pg (27.0-31.0); Mean Corpuscular Volume 85.8 fL (78.0-98.0); Mean Platelet Volume 6.9 fL (7.4-10.4); Platelet Count 145 thou/uL (130-400); RBC Distribution Width 15.1 % (11.5-14.5); Red Blood Cell (RBC) Count 3.02 mill/uL (4.70-6.10); White Blood Cell (WBC) Count 4.8 thou/uL (4.8-10.8)
[2018-06-08 07:14] LABS: ALT (SGPT) 9 U/L (8-55); AST (SGOT) 15 U/L (5-34); Albumin 2.8 g/dL (3.4-4.8); Alkaline Phosphatase 52 U/L (40-150); Anion Gap 11 mmol/L (10-20); BUN (Urea Nitrogen) 19 mg/dL (8.4-25.7); Bilirubin, Total 0.4 mg/dL (0.2-1.2); Calc. Creatinine Clearance 87 mL/min (70-130); Calcium 8.9 mg/dL (7.8-10.44); Carbon Dioxide 24 mmol/L (23-31); Chloride 105 mmol/L (98-107); Estimated GFR-MDRD 88; Glucose 88 mg/dL (80-115); Potassium 3.7 mmol/L (3.5-5.1); Protein, Total 5.8 g/dL (5.8-8.1); Sodium 136 mmol/L (136-145)
[2018-06-08] MEDS: Lisinopril 2.5 MG TAB PO SCH (08:55)
[2018-06-08] MEDS: Carvedilol 3.125 MG TAB PO SCH (08:55)
[2018-06-08] MEDS: Pantoprazole 80 MG in Sodium Chloride 0.9% 100 ML IVP SCH (08:56)
--- NOTE | 2018-06-08 08:57 | PDOC.FM ---
- Subjective Subjective: This morning patient states he is feeling well overall. Patient states he had a dark bm overnight. Denies bright red blood, states he made sure to show the nurse. Denies N/V/D. Ankle pain is improving, still has some pain with weight- bearing on the ankle but able to ambulate to restroom and back. Denies abd pain. - Objective Vital Signs & Weight: Vital Signs (12 hours) Temp Pulse Resp BP Pulse Ox 06/08/18 07:51 98.1 F 79 18 117/66 96 06/08/18 07:13 60 12 06/08/18 06:21 60 124/72 06/08/18 04:00 97.2 F L 60 18 86/43 L 94 L 06/08/18 00:24 68 12 97 06/08/18 00:00 98.5 F 76 18 97/64 97 Weight Admit Weight 73.652 kg Weight 73.652 kg I&O: 06/07/18 06/08/18 06/09/18 06:59 06:59 06:59 Intake Total 1130 1090 Balance 1130 1090 Result Diagrams: 06/08/18 06:18 06/08/18 06:18 Phys Exam - Physical Examination Constitutional: NAD HEENT: PERRLA, moist MMs Neck: no nodes, full ROM Respiratory: no wheezing, clear to auscultation bilateral Cardiovascular: RRR, no significant murmur Gastrointestinal: soft, non-tender, no distention, positive bowel sounds Musculoskeletal: no edema, pulses present Neurological: non-focal, moves all 4 limbs Psychiatric: normal affect, A&O x 3 Skin: no rash, cap refill <2 seconds Dx/Plan (1) Acute gastrointestinal bleeding Code(s): K92.2 - GASTROINTESTINAL HEMORRHAGE, UNSPECIFIED Status: Acute (2) Hypomagnesemia Code(s): E83.42 - HYPOMAGNESEMIA Status: Acute (3) Symptomatic anemia Code(s): D64.9 - ANEMIA, UNSPECIFIED Status: Acute (4) AICD (automatic cardioverter/defibrillator) present Code(s): Z95.810 - PRESENCE OF AUTOMATIC (IMPLANTABLE) CARDIAC DEFIBRILLATOR Status: Chronic (5) CAD (coronary artery disease) Code(s): I25.10 - ATHSCL HEART DISEASE OF [place] CORONARY ARTERY W/O ANG PCTRS Status: Chronic (6) CHF (congestive heart failure) Code(s): I50.9 - HEART FAILURE, UNSPECIFIED Status: Chronic (7) HLD (hyperlipidemia) Code(s): E78.5 - HYPERLIPIDEMIA, UNSPECIFIED Status: Chronic (8) Malignant tumor of pyriform sinus Code(s): C12 - MALIGNANT NEOPLASM OF PYRIFORM SINUS Status: Chronic (9) Physical deconditioning Code(s): R53.81 - OTHER MALAISE Status: Chronic (10) Pulmonary arterial hypertension Code(s): I27.21 - SECONDARY PULMONARY ARTERIAL HYPERTENSION Status: Chronic - Plan Plan: # Symptomatic anemia secondary to acute GI bleed - Presented with 3 episodes bloody loose stools, denies bm since hospitalization - hgb 9.2 this AM, VSS - BUN trending down - 1 U PRBC yesterday, 3 total this admission - s/p EGD, 1.8 cm bleeding duodenal ulcer - 3 days protonix drip per GI started 06/05 - GI consulted, recs appreciated, -possible transfer to [facility] this PM pending placement and GI recs # Malignancy of piriformis sinus - has completed chemo/radiation - continues to follow with Dr. Kohler # CHF not in acute exacerbation - currently stable with no clinical signs of overload. - ECHO showed EF of 23-30% - s/p AICD - will monitor for fluid overload and give lasix as needed # Bilateral Ankle pain 2/2 Gout - hx of gout - cannnot use NSAIDS or steroids 2/2 GI bleed - continue tramadol and colchicine # Pulmonary artery HTN - Identified on recent echo. PA pressure in 70s - likely 2/2 CHF, to f/u with HF clinic, Cardiology outpatient - seen by cardiology 06/04 #Hypomagnesemia #Hyponatremia # Deconditioning - PT/OT #Tobacco abuse -Nicotine patch # HTN - continue home medications # HLD - continue home medications Dispo: 1-2 days, possible transfer to [facility] this PM pending placement and GI recs Diet: clears, nutrition consulted DVT Ppx: SCDs Code status: Full code Addendum - Attending - Attending Attestation Date/Time: 06/08/18 1844 I personally evaluated the patient and discussed the management with Dr. Piper. I agree with the History, Examination, Assessment and Plan documented above with any addition or exceptions noted below. Hemoglobin is stable. Will likely transition to po protonix bid. Waiting on acceptance in [place].
[2018-06-08] MEDS: Colchicine 0.3 MG TAB PO SCH (09:18)
[2018-06-08] MEDS: Magnesium Chloride 64 MG TAB PO SCH (09:18)
--- NOTE | 2018-06-08 15:09 | PRG ---
DATE OF SERVICE: 06/08/2018 SUBJECTIVE: Mr. Sharp had 1 dark stool yesterday. No bowel movements today. OBJECTIVE: ABDOMEN: Soft, nontender, and nondistended. Bowel sounds are present. LABORATORY DATA: Hemoglobin is 9.2 after 1 unit yesterday up from 7.7. IMPRESSION: 1. Recurrent bleed from duodenal ulcer, resolved status post cautery of visible vessel in the ulcer base. 2. Anemia of acute blood loss, status post 3 units transfusion in total this hospital stay. Hemoglobin is stable now. RECOMMENDATIONS: 1. Change to oral pantoprazole 40 mg twice daily for a month and then back off to once daily. 2. Avoid NSAIDs. 3. He is to discharge to rehab today. Follow up with GI as needed. Job ID: [id number]
[2018-06-08] MEDS: Nicotine 21 MG PATCH TD SCH (15:15)
[2018-06-08 16:15] VITALS: BP 109/70; TEMP 97.6
--- NOTE | 2018-06-09 01:25 | DIS ---
DATE OF ADMISSION: 06/05/2018 DATE OF DISCHARGE: 06/08/2018 RESIDENT: Rafael Piper MD ADMITTING ATTENDING: Stef Taylor MD DISCHARGE ATTENDING: Debra Aguilar MD CONSULT: Gastroenterology, Dr. Gan. PROCEDURES: EGD, cauterized 1.8 cm bleeding ulcer in the proximal duodenum. PRIMARY DIAGNOSIS: Symptomatic anemia due to gastrointestinal bleed. SECONDARY DIAGNOSES: Malignancy of pyriform sinus, congestive heart failure present on admission not in exacerbation, gout, pulmonary hypertension, hypomagnesemia, hyponatremia, deconditioning, tobacco abuse, hypertension, hyperlipidemia. DISCHARGE MEDICATIONS: 1. Protonix 40 mg b.i.d. for 1 month. 2. Ferrous sulfate 325 b.i.d. for 2 weeks. 3. Carvedilol 3.125 b.i.d. 4. DuoNebs p.r.n. 5. Nicotine patch. 6. Magnesium. 7. Tramadol. 8. Colchicine. 9. Zofran. 10. Tylenol. DISCONTINUED MEDICATIONS: None. HISTORY OF PRESENT ILLNESS AND HOSPITAL COURSE: This is a 68-year-old male, who presented to the ED with x3 bright red bloody stools after recently being discharged for treatment of upper GI bleed. This patient presented to the ED 2 days after his previous discharge for treatment of the GI bleed. He also just finished treatment with chemo and radiation for his malignancy of pyriform sinus with Dr. Kohler. The patient received 2 units of blood when he was admitted from the ED after having his EGD. EGD showed an 1.8 cm bleeding ulcer in the same location as before, which was cauterized with good hemostasis. He was placed on Protonix drip for 3 days and monitored. He received one more unit of blood during this admission. Fluid status was monitored closely because of his EF of 25% to 30%. Ankle pain did improve throughout the course of the stay. The patient was ultimately discharged to Swing Bed in [place]. DISPOSITION: Stable. DISCHARGE INSTRUCTIONS: 1. Location: [facility]. 2. Diet: Full liquid. Speech Therapy assessment revealed high risk for aspiration. The patient continues with tube feeds. 3. Activity: As tolerated. 4. Followup: With primary care provider in 7 days, Dr. Omar Gan or GI in 2 weeks. Job ID: [id number]
== END 2018-06-08 16:24 | disposition swing bed (61) | DRG 378 ==
LOC: ERS 16:14 → T4-A 18:40 → SDC 18:41 → IMCU/EMU 23:52 → T4-A 06-06 14:05
PROVIDERS: ADMIT Internal Medicine Gastroenterology; ATTEND Internal Medicine Gastroenterology
PROC: 0W3P8ZZ Control Bleeding in Gastrointestinal Tract, Via Natural or Artificial Opening Endoscopic (ICD-10-PCS; principal; 2018-06-05)
PROC: 30233N1 Transfusion of Nonautologous Red Blood Cells into Peripheral Vein, Percutaneous Approach (ICD-10-PCS; 2018-06-06)
DX: K26.4 Chronic or unspecified duodenal ulcer with hemorrhage (principal); E87.1 Hypo-osmolality and hyponatremia; D62 Acute posthemorrhagic anemia; I50.22 Chronic systolic (congestive) heart failure; F17.210 Nicotine dependence, cigarettes, uncomplicated; I25.10 Atherosclerotic heart disease of native coronary artery without angina pectoris; E83.42 Hypomagnesemia; C12 Malignant neoplasm of pyriform sinus; I73.9 Peripheral vascular disease, unspecified; I11.0 Hypertensive heart disease with heart failure; J02.9 Acute pharyngitis, unspecified; M10.9 Gout, unspecified; E78.5 Hyperlipidemia, unspecified; I27.21 Secondary pulmonary arterial hypertension; I25.2 Old myocardial infarction; Z92.21 Personal history of antineoplastic chemotherapy; Z92.3 Personal history of irradiation; Z98.61 Coronary angioplasty status; Z93.1 Gastrostomy status; Z98.890 Other specified postprocedural states; Z88.8 Allergy status to other drugs, medicaments and biological substances; Z95.810 Presence of automatic (implantable) cardiac defibrillator; Z79.899 Other long term (current) drug therapy
CPT/HCPCS: 36415; 36430; 80053; 82553; 83605; 83735; 84484; 85027; 85610; 85730; 86850; 86900; 86901; 93005; 94640; 96361; 96374; C9113; J0171; J2405; J2550; J2704; J3010; J7050; J7620; P9016

== ENCOUNTER 2018-06-29 11:03 | Outpatient (CLI) | payer MEDICARE ==
[~2018-06-29 11:03] MED LIST: ISOVUE-370 76%-LOCM 1 ML ONE
--- NOTE | 2018-06-29 13:30 | CT ---
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 FINDINGS: Contrast-enhanced CT images of the soft tissue neck obtained on 06/29/2018. Comparison is made to pre vious exam from 03/02/2018. CT images soft tissue neck demonstrate decreased pharyngeal mucosal space in the right piriform sinus . This has significantly decreased in degree of enhancement and thickening when compared to the prev ious exam. The mass effect previously seen on axial image 42 has also decreased. Some minimal mucos al asymmetry remains as seen on axial image #40. Overall previously noted extensive deep cervical ly mphadenopathy is again seen. Overall side of the lymph nodes has slightly decreased or are unchanged in size. These include the right level 3 lymph nodes as well as left level 4 lymph nodes and right level 5A lymph nodes. Bilateral proximal ICA vascular calcification is also seen. IMPRESSION: Decreased right piriform sinus mucosal-based mass with similar or slightly decreased adjacent areas o f lymphadenopathy. POS: [facility]
== END 2018-06-29 11:04 | disposition home or self-care (01) ==
LOC: BICCT 11:03
PROVIDERS: ATTEND Radiology Radiation Oncology
DX: C12 Malignant neoplasm of pyriform sinus (principal); R59.0 Localized enlarged lymph nodes; J32.9 Chronic sinusitis, unspecified
CPT/HCPCS: 70491

== ENCOUNTER 2018-08-29 13:05 | Outpatient (CLI) | payer MEDICARE ==
--- NOTE | 2018-08-29 16:22 | PET ---
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 Follow-up. COMPARISON: PET/CT of 03/02/2018. TECHNIQUE: F 18 FDG dose: 12 mCi. Scans from skull base to proximal thighs. FINDINGS: Head and neck: The previously very hypermetabolic activity in the right piriform sinus has dramatically decreased fr om prior SUV of 21 to current SUV of 3.9. The previously very hypermetabolic right level 2A lymph node with SUV of 10.2 currently has SUV of 2. 2, i.e. background activity, currently not hypermetabolic. The previously demonstrated right retrojugular lymph node, straddling the levels 2 and 3 had SUV of 3 .6. It now has SUV of 2.6, nonhypermetabolic. It may be slightly partially calcified. Contralateral l eft level 3 lymph node was previously 4.7 SUV. It is now 2.7 SUV, nonhypermetabolic. Currently, there are no hypermetabolic cervical lymph nodes. Thorax: In the apical segment of the upper lobe of the right lung, there is a new irregularly shaped, approxi mately 1 x 0.5 cm noncalcified pulmonary nodule with SUV of 7.2. Slightly posterior and superior to that there is another new pulmonary nodule with SUV of 2.5. This i s also suspicious for metastasis. Medially in the contralateral left upper lobe apical segment, there is another new tiny noncalcified irregularly-shaped pulmonary nodule measuring approximately 0.5 cm. It has SUV of only 1.4, but that could be because it is so small. No hypermetabolic hilar lymph nodes. There is a small 1 cm right anterior paratracheal mediastinal lymph node which has not changed in siz e and currently has SUV of 2.5. Was previously 2.2. This is equivocal. ABDOMEN: No suspicious hypermetabolic activity. Pelvis: No suspicious hypermetabolic activity. IMPRESSION: 1. Significant interval improvement in the hypermetabolic activity involving the right hypopharynx, m ore specifically the right piriform sinus. 2. Interval resolution of the hypermetabolic activity of the cervical lymph nodes. 3. Interval development of 3 new very small pulmonary nodules, 2 on the right and one on the left. On e of them is definitely hypermetabolic. Another one is borderline. The third one is not apparently hy permetabolic, but may be too small for uptake on PET scan. They could either represent new pulmonary metastases or infectious process with atypical organism. Recommend serial follow-up chest CTs.
== END 2018-08-29 13:06 | disposition home or self-care (01) ==
LOC: PET 13:05
PROVIDERS: ATTEND Internal Medicine Hematology & Oncology
DX: C12 Malignant neoplasm of pyriform sinus (principal); R91.8 Other nonspecific abnormal finding of lung field
CPT/HCPCS: 78815; A9552

== ENCOUNTER 2018-10-31 08:33 | Outpatient (CLI) | payer MEDICARE ==
[2018-10-31] MEDS ORDERED: ISOVUE-370 76%-LOCM 1 ML ONE (09:03)
--- NOTE | 2018-10-31 09:42 | CT ---
Contrast-enhanced CT chest: HISTORY: Patient with history of piriform sinus cancer Contrast-enhanced CT of the chest performed comparison made to previous CT from PET exam from 08/30/19 19. FINDINGS: Minimal area of spiculated density in the right upper lobe is again seen unchanged since the previous exam. No significant evidence of mediastinal lymphadenopathy seen. No definite osseous lesions seen. There is interval development of areas of newly developed patchy airspace opacities in the right midd le lobe, right lower lobe, left lower lobe and minimal areas in the lingula. These are all compatible with likely multi lobar pneumonia. These areas were not present on the patient's previous CT from August 2018. IMPRESSION: Newly developed multi lobar areas of airspace opacities concerning for pneumonia. Findings called to Dr. Kohler at 9:41 AM on 10/31/2018. Code CR Transcribed Date/Time: 10/31/2018 10:07 AM
== END 2018-10-31 08:34 | disposition home or self-care (01) ==
LOC: BICCT 08:33
PROVIDERS: ATTEND Internal Medicine Hematology & Oncology
DX: C12 Malignant neoplasm of pyriform sinus (principal); R91.8 Other nonspecific abnormal finding of lung field
CPT/HCPCS: 71260; 82565; Q9966

== ENCOUNTER 2018-11-16 09:32 | Outpatient (CLI) | payer MEDICARE ==
--- NOTE | 2018-11-21 16:05 | RAD ---
MODIFIED BARIUM SWALLOW: HISTORY: Dysphagia, unspecified. Feeding difficulties. FLUOROSCOPY: Total fluoroscopy time is 23.5 seconds with a total dose of 22.75 mGy (0.596 mGy per m2). FINDINGS: This examination was performed with speech pathology, and a videotape is available for evaluation. T he patient was administered barium consistencies of barium. There is difficulty in the formation of the bolus into the posterior pharynx with premature spill of contrast into the vallecula. The patien t did demonstrate jenny aspiration with initial swallowing of thin liquid barium. An appropriate cou gh reflex was not elicited. No additional significant penetration or aspiration was identified with remaining barium consistencies. A 12.5 mm barium tablet was administered with transient holdup at th e level of the upper esophageal sphincter, but the patient was eventually able to swallow the tablet with additional swallowing. IMPRESSION: Jenny aspiration with thin liquid barium. POS: NICOLASA
== END 2018-11-16 09:33 | disposition home or self-care (01) ==
PROVIDERS: ATTEND Internal Medicine Hematology & Oncology
DX: R13.10 Dysphagia, unspecified (principal); R63.3 Feeding difficulties
CPT/HCPCS: 74230

== ENCOUNTER 2019-01-04 07:17 | Outpatient (CLI) | payer MEDICARE ==
--- NOTE | 2019-01-04 11:30 | CT ---
CT chest noncontrast HISTORY: Neck cancer. On chemotherapy. COPD. COMPARISON: 10/31/2018. FINDINGS: Lungs remain hyperinflated. At the anterior lateral aspect of the right upper lobe, an irre gular shaped soft tissue density nodule abutting the pleural surface is 1.3 cm oblique diameter on the axial images (previously 0.7 cm). Abutting the posterior pleura at the superior segment right low er lobe is a 0.9 cm noncalcified nodule (previously 0.5 cm). At the right anterolateral lung base, a pleural-based 0.6 cm nodule is unchanged from the previous exam. Additional tiny nonspecific subple ural nodules are again demonstrated. No pleural fluid or pneumothorax. Ill-defined parenchymal opacity at the left lung base has improved significantly since the previous e xam. Right basilar atelectasis has resolved. Lack of contrast limits evaluation of the mediastinum. Scattered nonenlarged, nonspecific lymph nodes . Prominent calcification within the coronary arteries and other arterial structures. IMPRESSION: Slight interval enlargement of subpleural right upper lobe and right lower lobe nodules, as detailed above. Significant interval improvement in infiltrate/atelectasis at the lung bases, resolved on the right. Minimal remaining atelectasis on the left. Atherosclerosis.
== END 2019-01-04 07:18 | disposition home or self-care (01) ==
LOC: CP 07:17 → CT 07:18
PROVIDERS: ATTEND Internal Medicine
DX: J44.9 Chronic obstructive pulmonary disease, unspecified (principal); R91.8 Other nonspecific abnormal finding of lung field; J98.11 Atelectasis; I25.10 Atherosclerotic heart disease of native coronary artery without angina pectoris; I70.90 Unspecified atherosclerosis
CPT/HCPCS: 71250; 94060; 94727; 94729

== ENCOUNTER 2019-03-14 08:15 | Outpatient (CLI) | payer MEDICARE ==
[2019-03-14] MEDS ORDERED: ISOVUE-370 76%-LOCM 1 ML ONE (10:11)
--- NOTE | 2019-03-14 11:19 | CT ---
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 COMPARISON: 01/04/2019 and 10/31/2018. FINDINGS: No evidence of mediastinal, hilar, or axillary mass or lymphadenopathy is seen. No pleural or perica rdial effusions are identified. There has been interval increase in size of the irregular soft tissue density in the anterolateral as pect of the right upper lobe from 13 mm on 01/04/2019 to 19 mm on the current exam. The 9 mm peripheral nodule in the right lower lobe has increased in size and measures 13 mm on the cu rrent exam. Other tiny lung nodules are stable. There has been interval improvement in the left bas ilar infiltrate since 01/04/2019. A small hypermetabolic focus in the superior aspect of the liver is unchanged since 10/31/2018. There are degenerative changes in the spine. IMPRESSION: Interval increase in sizes of the right lung nodules since 01/04/2019. POS: NICOLASA
== END 2019-03-14 08:16 | disposition home or self-care (01) ==
LOC: BICCT 08:15
PROVIDERS: ATTEND Internal Medicine Hematology & Oncology
DX: C12 Malignant neoplasm of pyriform sinus (principal); R91.8 Other nonspecific abnormal finding of lung field
CPT/HCPCS: 71260; 80048; 82565; 82728; 84443; Q9966

== ENCOUNTER 2019-04-26 08:22 | Outpatient (CLI) | payer MEDICARE ==
--- NOTE | 2019-04-26 10:30 | PET ---
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 COMPARISON: CT of the thorax dated March 14, 2019 and January 04, 2019. PET/CT dated August 29, 2018 an d March 02, 2018. FINDINGS: Biodistribution:The biodistribution for the exam appears acceptable. Head and neck: There is appropriate background activity within the brain. No hypermetabolic activity is seen within the region of the right puriform sinus. No hypermetabolic activity is seen involving the left level 3 lymph node. There is worsening hypermetabolic uptake involving the right level 2A an d right level 3 lymph node previously seen. The right level 2A lymph node now has uptake of the peak of 4.72 and a mean value of 3.81. The previously seen hypermetabolic right level 3 lymph node du s a peak activity of 5.66 and a mean activity of 4.42. There is a new hypermetabolic right level 3 lymph node has a peak activity of 5.45 and a mean activity of 4.64. Thorax: The prominent subpleural pulmonary nodule within the anterior segment of the right upper lobe has a peak activity of 5.2 and a mean activity of 3.89. This is a new pulmonary nodule from the prior PET scan performed in August 2018. The pulmonary nodule seen within a subpleural location of the posterior medial right lower lobe has a peak activity 2.2 and mean activity 1.85. Previously seen hypermetabolic lymph nodes within the apical segments of both upper lobes are no longer demonstrated. Scattered emphysema is present. The metallic density at the level of the mitral valve appears unchanged. There pacemaker leads seen within the right heart. Abdomen and pelvis: There is expected background activity within the GI and systems. No hypermetab olic mass, lymphadenopathy or ascites is present. Osseous structures and skin: No hypermetabolic skin or osseous lesion is identified. IMPRESSION: Worsening hypermetabolic lymphadenopathy of the right aspect of the neck. There is a new hypermetabol ic right level 3 lymph node. The malignancy of the right piriform sinus demonstrates no uptake on the current exam. Hypermetabolic pulmonary nodules the right upper lobe and right lower lobe consistent with pulmonary metastatic disease. No evidence of metastatic disease within the abdomen, pelvis, skin or osseous structures.
== END 2019-04-26 08:23 | disposition home or self-care (01) ==
LOC: PET 08:22
PROVIDERS: ATTEND Internal Medicine Hematology & Oncology
DX: C12 Malignant neoplasm of pyriform sinus (principal); R91.8 Other nonspecific abnormal finding of lung field; R59.0 Localized enlarged lymph nodes
CPT/HCPCS: 78815; A9552

== ENCOUNTER 2019-05-16 12:41 | Day surgery (SDC) | payer MEDICARE ==
[~2019-05-16 12:41] MED LIST changes: -ISOVUE-370 76%-LOCM 1 ML ONE; +Pembrolizumab 200 MG in Sodium Chloride 0.9% 250 ML 250 ML IV SCH
[2019-05-16] MEDS ORDERED: Sodium Chloride 0.9% 20 ML ONE (12:53)
[2019-05-16 13:11] VITALS: BP 126/71; TEMP 98.1
== END 2019-05-16 14:23 | disposition home or self-care (01) ==
LOC: ONC/OP 12:41
PROVIDERS: ATTEND Internal Medicine Hematology & Oncology
DX: Z51.12 Encounter for antineoplastic immunotherapy (principal); C12 Malignant neoplasm of pyriform sinus; Z88.8 Allergy status to other drugs, medicaments and biological substances
CPT/HCPCS: 96413; J7050; J9271

== ENCOUNTER → 2019-06-05 | Day surgery (SDC) | payer MEDICARE ==
[2019-06-05 17:34] VITALS: BP 136/72; TEMP 96.7
== END ==
LOC: ONC/OP 13:00
PROVIDERS: ATTEND Internal Medicine Hematology & Oncology
DX: Z51.12 Encounter for antineoplastic immunotherapy (principal); C12 Malignant neoplasm of pyriform sinus; Z88.8 Allergy status to other drugs, medicaments and biological substances
CPT/HCPCS: 96413; J7050; J9271

== ENCOUNTER 2019-06-28 09:54 | Day surgery (SDC) | payer MEDICARE ==
[2019-06-28 11:56] VITALS: BP 112/58; TEMP 97.2
== END 2019-06-28 12:02 | disposition home or self-care (01) ==
LOC: ONC/OP 09:54
PROVIDERS: ATTEND Internal Medicine Hematology & Oncology
DX: Z51.12 Encounter for antineoplastic immunotherapy (principal); C12 Malignant neoplasm of pyriform sinus; Z88.8 Allergy status to other drugs, medicaments and biological substances
CPT/HCPCS: 96413; J7050; J9271

== ENCOUNTER 2019-07-17 12:46 | Outpatient (CLI) | payer MEDICARE ==
--- NOTE | 2019-07-17 16:48 | PET ---
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 Exam requested to measure response to treatment. Patient is undergoing chemotherapy. TECHNIQUE: PET scan with CT attenuation correction was performed from the vertex through the proximal thighs fol lowing intravenous administration of 12.1 millicuries of 15-fluorodeoxyglucose in the left hand. COMPARISON: PET CT of 05/04/19. FINDINGS: No hypermetabolic activity is seen in the region of the piriform sinuses. Kathy hypermetabolism in th e right cervical lymph node is again seen with a maximum SUV of 5.7 at level 2 and 8.1 at level 5. Th e maximum SUV in the right cervical lymph nodes on the previous exam was 5.45. There is a new right paratracheal mediastinal hypermetabolic lymph node with an SUV of 2.9. There is continued hypermetabolic activity in the right upper lobe piriform nodule with an SUV of 8.7 (previou sly 5.2). The 2 cm nodule in the superior segment of the right lower lobe demonstrates interval incre ase in size and FDG localization since the last exam with the current SUV of 6 (previously 2.2). Ther e is focal nodular uptake in the right infrahilar region with an SUV of 4.6 which is new since the la st study. There is a 4.5 cm patchy consolidation in the left lower lobe without abnormal FDG localization and a n SUV of 2.2. This is also new since the last exam. No hypermetabolic liver, adrenal, or skeletal lesions are seen. There is physiologic activity in the brain, heart, GI and tracts. The CT scan used for attenuation correction demonstrates no evidence of pleural effusions or ascites. IMPRESSION: Interval worsening since 04/26/19. POS: MARÍA
== END 2019-07-17 12:47 | disposition home or self-care (01) ==
LOC: PET 12:46
PROVIDERS: ATTEND Internal Medicine Hematology & Oncology
DX: C12 Malignant neoplasm of pyriform sinus (principal)
CPT/HCPCS: 78815; A9552

== ENCOUNTER 2019-07-26 09:45 | Day surgery (SDC) | payer MEDICARE ==
[~2019-07-26 09:45] MED LIST changes: +CARBOPLATIN IVPB SCH; +DOCETAXEL IVPB SCH; +DOCEtaxel 140 MG in Sodium Chloride 0.9% 250 ML 250 ML IVPB SCH; +PEGFILGRASTIM-JMDB 6 MG/0.6 ML SYRINGE SQ SCH; +Palonosetron HCl 0.25 MG in Sodium Chloride 0.9% 50 ML IVPB SCH; +Pegfilgrastim Onpro 6 MG/0.6 ML SQ SCH; -Pembrolizumab 200 MG in Sodium Chloride 0.9% 250 ML 250 ML IV SCH; +SODIUM CHLORIDE 0.9% IVPB SCH
[2019-07-26 12:19] VITALS: BP 144/73; TEMP 98
== END 2019-07-26 15:05 | disposition home or self-care (01) ==
LOC: ONC/OP 09:45
PROVIDERS: ATTEND Internal Medicine Hematology & Oncology
DX: Z51.11 Encounter for antineoplastic chemotherapy (principal); C12 Malignant neoplasm of pyriform sinus; Z88.8 Allergy status to other drugs, medicaments and biological substances
CPT/HCPCS: 96375; 96413; 96417; J1100; J2469; J7050; J9045; J9171

== ENCOUNTER 2019-07-27 09:57 | Day surgery (SDC) | payer MEDICARE ==
[~2019-07-27 09:57] MED LIST changes: -CARBOPLATIN IVPB SCH; -DOCETAXEL IVPB SCH; -DOCEtaxel 140 MG in Sodium Chloride 0.9% 250 ML 250 ML IVPB SCH; -Palonosetron HCl 0.25 MG in Sodium Chloride 0.9% 50 ML IVPB SCH; -Pegfilgrastim Onpro 6 MG/0.6 ML SQ SCH; -SODIUM CHLORIDE 0.9% IVPB SCH
[2019-07-27 14:48] VITALS: BP 110/59; TEMP 97.4
== END 2019-07-27 14:48 | disposition home or self-care (01) ==
LOC: ONC/OP 09:57
PROVIDERS: ATTEND Internal Medicine Hematology & Oncology
DX: Z51.11 Encounter for antineoplastic chemotherapy (principal); C12 Malignant neoplasm of pyriform sinus
CPT/HCPCS: 96372; Q5108

== ENCOUNTER 2019-08-16 09:40 | Day surgery (SDC) | payer MEDICARE ==
[~2019-08-16 09:40] MED LIST changes: +CARBOPLATIN IVPB SCH; +DOCEtaxel 140 MG in Sodium Chloride 0.9% 250 ML 250 ML IVPB SCH; +Palonosetron HCl 0.25 MG in Sodium Chloride 0.9% 50 ML IVPB SCH; +SODIUM CHLORIDE 0.9% IVPB SCH
[2019-08-16 10:06] VITALS: BP 119/59; TEMP 97.7
== END 2019-08-16 13:36 | disposition home or self-care (01) ==
LOC: ONC/OP 09:40
PROVIDERS: ATTEND Internal Medicine Hematology & Oncology
DX: Z51.11 Encounter for antineoplastic chemotherapy (principal); C12 Malignant neoplasm of pyriform sinus; Z88.8 Allergy status to other drugs, medicaments and biological substances
CPT/HCPCS: 80053; 82248; 83615; 84100; 84550; 96375; 96413; 96417; J1100; J2469; J7050; J9045; J9171

== ENCOUNTER → 2019-08-17 | Day surgery (SDC) | payer MEDICARE ==
[~2019-08-17] MED LIST changes: -CARBOPLATIN IVPB SCH; -DOCEtaxel 140 MG in Sodium Chloride 0.9% 250 ML 250 ML IVPB SCH; -Palonosetron HCl 0.25 MG in Sodium Chloride 0.9% 50 ML IVPB SCH; -SODIUM CHLORIDE 0.9% IVPB SCH
[2019-08-17 08:54] VITALS: BP 101/54; TEMP 97.5
== END | disposition home or self-care (01) ==
LOC: ONC/OP 08:43
PROVIDERS: ATTEND Internal Medicine Hematology & Oncology
DX: Z51.11 Encounter for antineoplastic chemotherapy (principal); C12 Malignant neoplasm of pyriform sinus; Z88.8 Allergy status to other drugs, medicaments and biological substances
CPT/HCPCS: 96372; Q5108

== ENCOUNTER 2019-09-06 09:06 | Day surgery (SDC) | payer MEDICARE ==
[~2019-09-06 09:06] MED LIST changes: +CARBOplatin 450 MG in Sodium Chloride 0.9% 250 ML 250 ML IVPB SCH; +DOCEtaxel 140 MG in Sodium Chloride 0.9% 250 ML 250 ML IVPB SCH; -PEGFILGRASTIM-JMDB 6 MG/0.6 ML SYRINGE SQ SCH; +Palonosetron HCl 0.25 MG in Sodium Chloride 0.9% 50 ML IVPB SCH
[2019-09-06] MEDS ORDERED: Sodium Chloride 0.9% 20 ML ONE (09:15)
[2019-09-06 10:03] VITALS: BP 102/57; TEMP 97.9
== END 2019-09-06 13:26 | disposition home or self-care (01) ==
LOC: ONC/OP 09:06
PROVIDERS: ATTEND Internal Medicine Hematology & Oncology
DX: Z51.11 Encounter for antineoplastic chemotherapy (principal); C12 Malignant neoplasm of pyriform sinus; Z88.8 Allergy status to other drugs, medicaments and biological substances
CPT/HCPCS: 36415; 80053; 82248; 83615; 84100; 84550; 96375; 96413; 96417; J1100; J2469; J7050; J9045; J9171

== ENCOUNTER 2019-09-07 08:25 | Day surgery (SDC) | payer MEDICARE ==
[~2019-09-07 08:25] MED LIST changes: -CARBOplatin 450 MG in Sodium Chloride 0.9% 250 ML 250 ML IVPB SCH; -DOCEtaxel 140 MG in Sodium Chloride 0.9% 250 ML 250 ML IVPB SCH; +PEGFILGRASTIM-JMDB 6 MG/0.6 ML SYRINGE SQ SCH; -Palonosetron HCl 0.25 MG in Sodium Chloride 0.9% 50 ML IVPB SCH
[2019-09-07 08:40] VITALS: BP 106/51; TEMP 97.6
== END 2019-09-07 08:40 | disposition home or self-care (01) ==
LOC: ONC/OP 08:25
PROVIDERS: ATTEND Internal Medicine Hematology & Oncology
DX: Z51.11 Encounter for antineoplastic chemotherapy (principal); C12 Malignant neoplasm of pyriform sinus; Z88.8 Allergy status to other drugs, medicaments and biological substances
CPT/HCPCS: 96372; Q5108

== ENCOUNTER 2019-09-25 08:56 | Outpatient (CLI) | payer MEDICARE ==
--- NOTE | 2019-09-25 12:39 | PET ---
Radionucleotide pelvis CT attenuation correction HISTORY: Malignant neoplasm of the piriform sinus. Restaging. COMPARISON: 07/17/2019. FINDINGS: Physiologic uptake of radiotracer within the enteric system and along each urinary tract. D iffuse uptake of the bone marrow likely related to ongoing treatment. Hypermetabolic activity is again seen with the right cervical lymph nodes containing dystrophic calci fications. The more superior lymph nodes show maximum SUV 3.5 (previously 8.1). The more inferior nodes show maximum SUV 4.4 (previously 7.5). The pleural-based right upper lobe lesion is smaller on the CT images max SUV 4.1 (previously 9.0).Th e smaller right upper lobe nodule, right lower lobe superior segment nodule, right posterior infrahilar nodule, and paratracheal mediastinal lymph node are no longer hypermetabolic. Subtle atelectasis at the right lung base centrally is non-hypermetabolic. At the left posterior costophrenic angle, an oval area of increased activity shows max SUV 2.7 (previ ously 2.3). It is slightly smaller and the morphologic appearance is more suggestive of atelectasis/inflammation rather than neoplasm. A focal area of increased activity at the distal esophagus shows max SUV 3.5 (previously 2.4). It is contiguous with a thickened area of the posterior wall of the gastric cardia with Max SUV 3.2. A focal area of dilatation of the mid left ureter is again seen immediately adjacent to the left danette c artery bypass. The left common iliac artery graft near the bifurcation shows max SUV on today's exam is 3.3 (previou sly 3.6). Nondiagnostic CT attenuation correction images show prominent calcification throughout the arterial s tructures. No new abnormalities are evident. IMPRESSION : Significant interval improvement, with decreased hypermetabolic activity associated of right cervical lymph nodes and right lung masses, and complete resolution of the right paratracheal lymph node and some of the right lung nodules. Slight increase in activity associated with non-masslike infiltrate/atelectasis at the left posterior lung base. Newly increased activity associated with the distal esophagus near the GE junction and into a thicken ed portion of the posterior gastric cardia. This may just be viewed with some degree of caution. Considerations would include direct visualization or close follow-up on PET imaging.
== END 2019-09-25 08:57 | disposition home or self-care (01) ==
LOC: PET 08:56
PROVIDERS: ATTEND Internal Medicine Hematology & Oncology
DX: C12 Malignant neoplasm of pyriform sinus (principal); R91.8 Other nonspecific abnormal finding of lung field
CPT/HCPCS: 78815; A9552

== ENCOUNTER 2019-09-27 09:55 | Day surgery (SDC) | payer MEDICARE ==
[~2019-09-27 09:55] MED LIST changes: +CARBOplatin 450 MG in Sodium Chloride 0.9% 250 ML 250 ML IVPB SCH; +DOCEtaxel 140 MG in Sodium Chloride 0.9% 250 ML 250 ML IVPB SCH; +Palonosetron HCl 0.25 MG in Sodium Chloride 0.9% 50 ML IVPB SCH
[2019-09-27] MEDS ORDERED: Sodium Chloride 0.9% 20 ML ONE (10:11)
[2019-09-27 10:19] VITALS: BP 101/51; TEMP 98.5
== END 2019-09-27 15:18 | disposition home or self-care (01) ==
LOC: ONC/OP 09:55
PROVIDERS: ATTEND Internal Medicine Hematology & Oncology
DX: Z51.11 Encounter for antineoplastic chemotherapy (principal); C12 Malignant neoplasm of pyriform sinus; Z88.8 Allergy status to other drugs, medicaments and biological substances
CPT/HCPCS: 36415; 80053; 82248; 83615; 84100; 84550; 96375; 96413; 96417; J1100; J2469; J7050; J9045; J9171

== ENCOUNTER 2019-09-28 10:13 | Day surgery (SDC) | payer MEDICARE ==
[~2019-09-28 10:13] MED LIST changes: -CARBOplatin 450 MG in Sodium Chloride 0.9% 250 ML 250 ML IVPB SCH; -DOCEtaxel 140 MG in Sodium Chloride 0.9% 250 ML 250 ML IVPB SCH; -Palonosetron HCl 0.25 MG in Sodium Chloride 0.9% 50 ML IVPB SCH
[2019-09-28 10:19] VITALS: BP 107/63; TEMP 98.1
== END 2019-09-28 10:36 | disposition home or self-care (01) ==
LOC: ONC/OP 10:13
PROVIDERS: ATTEND Internal Medicine Hematology & Oncology
DX: Z51.11 Encounter for antineoplastic chemotherapy (principal); C12 Malignant neoplasm of pyriform sinus; Z88.8 Allergy status to other drugs, medicaments and biological substances
CPT/HCPCS: 96372; Q5108

== ENCOUNTER 2019-10-08 06:56 | Outpatient (CLI) | payer MEDICARE, OTHER ==
[2019-10-08 18:50] LABS: SARS-CoV-2 MS2 Positive; SARS-CoV-2 N Gene Negative; SARS-CoV-2 S Gene Negative; SARS-CoV-2 orf1ab Negative
== END 2019-10-08 06:57 | disposition home or self-care (01) ==
LOC: LABBT 06:56
PROVIDERS: ATTEND Internal Medicine Gastroenterology
DX: Z01.812 Encounter for preprocedural laboratory examination (principal); Z11.59 Encounter for screening for other viral diseases; K21.9 Gastro-esophageal reflux disease without esophagitis; D64.9 Anemia, unspecified; R93.5 Abnormal findings on diagnostic imaging of other abdominal regions, including retroperitoneum; I50.9 Heart failure, unspecified; C32.8 Malignant neoplasm of overlapping sites of larynx
CPT/HCPCS: 87635; U0003

== ENCOUNTER 2019-10-11 06:21 | Day surgery (SDC) | payer MEDICARE ==
[2019-10-11] MEDS ORDERED: Fentanyl 100 MCG/2 ML VIAL ONE (07:46)
[2019-10-11] MEDS ORDERED: Ketamine 50 MG/ML (10ML VIAL) ONE (07:46)
[2019-10-11] MEDS ORDERED: PROPOFOL 200 MG/20 ML VIAL ONE (10:09)
--- NOTE | 2019-10-11 17:53 | OP ---
DATE OF PROCEDURE: 10/11/2019 PREPROCEDURE DIAGNOSES: 1. Dysphagia. 2. History of esophageal cancer. 3. History of abnormal PET scan of the abdomen and esophagus. 4. Anemia. PROCEDURES: EGD and colonoscopy. POSTOPERATIVE DIAGNOSES: 1. Extrinsic compression of the esophagus. 2. Mild reflux esophagitis. No intrinsic esophageal malignancies noted of the mucosal membranes of the esophagus. 3. Normal stomach. 4. Normal duodenum. 5. Normal colonoscopy. RECOMMENDATIONS: Keep followup with Oncology. ANESTHESIA: TIVA. PROCEDURE IN DETAIL: After the patient was informed of risks, benefits, and possible complications of endoscopy, including perforation, reaction to medication, and aspiration, informed consent was obtained. The patient was brought to endoscopy suite, where he was sedated in a gradual fashion. Once he was comfortable, a bite block was placed inside his orifice. The endoscope was advanced through the esophagus, stomach, second and third portions of the duodenum and slowly removed. There was extrinsic compression in the mid portion of the esophagus. The scope was slowly advanced beyond this. The mucosa appeared normal. As far as the PET scan that was positive in the distal esophagus, there was mild reflux changes there, but no overt evidence of masses or tumors of the mucosa or compression in this region. The stomach was normal in forward and retroflexed views. The duodenum was normal. The scope was removed. The patient tolerated this portion of procedure well. There were no complications. The patient was returned to the room. A rectal examination was performed which revealed no abnormalities. The endoscope was advanced to the rectum into the cecum, which was normal. The scope was slowly removed with good visualization of mucosa. There were no mass lesions or AV malformations. Retroflexed views were normal. The scope was removed. The patient tolerated the procedure well. There were no complications. Job ID: [id number]
== END 2019-10-11 13:19 | disposition home or self-care (01) ==
LOC: SDC 06:21
PROVIDERS: ATTEND Internal Medicine Gastroenterology
PROC: 0DJ08ZZ Inspection of Upper Intestinal Tract, Via Natural or Artificial Opening Endoscopic (ICD-10-PCS; principal; 2019-10-11)
DX: K22.2 Esophageal obstruction (principal); K21.0 Gastro-esophageal reflux disease with esophagitis; D64.9 Anemia, unspecified; C32.9 Malignant neoplasm of larynx, unspecified; I11.0 Hypertensive heart disease with heart failure; I50.9 Heart failure, unspecified; M10.9 Gout, unspecified; E78.00 Pure hypercholesterolemia, unspecified; I25.10 Atherosclerotic heart disease of native coronary artery without angina pectoris; F17.200 Nicotine dependence, unspecified, uncomplicated; Z79.02 Long term (current) use of antithrombotics/antiplatelets; Z79.899 Other long term (current) drug therapy; Z95.5 Presence of coronary angioplasty implant and graft; Z95.810 Presence of automatic (implantable) cardiac defibrillator; Z88.8 Allergy status to other drugs, medicaments and biological substances
CPT/HCPCS: J2704; J3010

== ENCOUNTER 2019-10-18 09:18 | Day surgery (SDC) | payer MEDICARE ==
[2019-10-08 11:05] VITALS: BMI 21.5
[~2019-10-18 09:18] MED LIST changes: +CARBOPLATIN IVPB SCH; +DOCEtaxel 130 MG in Sodium Chloride 0.9% 250 ML 250 ML IVPB SCH; -PEGFILGRASTIM-JMDB 6 MG/0.6 ML SYRINGE SQ SCH; +Palonosetron HCl 0.25 MG in Sodium Chloride 0.9% 50 ML IVPB SCH; +SODIUM CHLORIDE 0.9% IVPB SCH
[2019-10-18] MEDS ORDERED: Dexamethasone Sod Phosphate 20 MG in Sodium Chloride 0.9% 50 ML IVPB SCH (09:45)
[2019-10-18] MEDS ORDERED: Sodium Chloride 0.9% 20 ML ONE (09:45)
[2019-10-18 13:42] VITALS: BP 139/93; TEMP 98
== END 2019-10-18 14:03 | disposition home or self-care (01) ==
LOC: ONC/OP 09:18
PROVIDERS: ATTEND Internal Medicine Hematology & Oncology
DX: Z51.11 Encounter for antineoplastic chemotherapy (principal); C12 Malignant neoplasm of pyriform sinus; Z79.899 Other long term (current) drug therapy
CPT/HCPCS: 80053; 82248; 83615; 84100; 84550; 96375; 96413; 96417; 99212; G0463; J1100; J2469; J7050; J7620; J9045; J9171

== ENCOUNTER 2019-10-19 11:49 | Day surgery (SDC) | payer MEDICARE ==
[~2019-10-19 11:49] MED LIST changes: -CARBOPLATIN IVPB SCH; -DOCEtaxel 130 MG in Sodium Chloride 0.9% 250 ML 250 ML IVPB SCH; +PEGFILGRASTIM-JMDB 6 MG/0.6 ML SYRINGE SQ SCH; -Palonosetron HCl 0.25 MG in Sodium Chloride 0.9% 50 ML IVPB SCH; -SODIUM CHLORIDE 0.9% IVPB SCH
[2019-10-19 12:03] VITALS: BP 110/59; TEMP 98.1
== END 2019-10-19 12:03 | disposition home or self-care (01) ==
LOC: ONC/OP 11:49
PROVIDERS: ATTEND Internal Medicine Hematology & Oncology
DX: Z51.11 Encounter for antineoplastic chemotherapy (principal); C12 Malignant neoplasm of pyriform sinus; Z88.8 Allergy status to other drugs, medicaments and biological substances
CPT/HCPCS: 84295; 96372; Q5108

== ENCOUNTER 2019-12-04 09:30 | Outpatient (CLI) | payer MEDICARE ==
--- NOTE | 2019-12-04 11:30 | PET ---
Radionucleotide PET scan with CT attenuation correction HISTORY: Malignant neoplasm of the piriform sinus. Restaging. COMPARISON: 09/25/2019. FINDINGS: Physiologic uptake of radiotracer within the enteric system and along each urinary tract. A small focus of increased activity at the far posterior margin of the right larynx, max SUV 4.1 (previously 2.7), is favored to be related to muscular phonation. Hypermetabolic activity along the right side of the neck associated with lymph nodes and right sterno cleidomastoid muscular enlargement, with some dystrophic calcification, is again demonstrated. More superiorly, max SUV 3.4 (previously 3.6). More inferiorly, max SUV 4.3 (previously 4.4). The wedge-shaped pleural-based parenchymal abnormality with hypermetabolic activity at the anterolate ral aspect of the right upper lobe lung shows max SUV 2.8 (previously 3.4). Within the posterior aspect of the left lower lobe lung base, parenchymal opacity, with the appearanc e of infiltrate/atelectasis, is now present without a focal mass. Max SUV 5.0. Less prominent, some of hypermetabolic inflammation is present the right posterior lung base. A small focus of activity, max SUV 2.4, at the subcarinal level just to the left of midline is favore d to be related to the esophagus. Within the abdomen, increased uptake associated with the vascular bypass graft is again demonstrated. Areas of concern on the prior study involving the lower esophagus and gastric cardia show no pathologic uptake on today's exam. Nondiagnostic CT attenuation correction images again show prominent calcification throughout the wayne rial structures. IMPRESSION : Stable exam from a restaging standpoint. Hypermetabolic activity along the right side of the neck and the right lung lesion are unchanged. Increasing activity at the posterior lung bases, especially the left lower lobe. The appearance is mo re suggestive of pneumonitis (consider aspiration) than lymphangitic spread of tumor. No persistent abnormality of the distal esophagus/gastric cardia.
== END 2019-12-04 09:31 | disposition home or self-care (01) ==
LOC: PET 09:30
PROVIDERS: ATTEND Internal Medicine Hematology & Oncology
DX: C12 Malignant neoplasm of pyriform sinus (principal); R91.1 Solitary pulmonary nodule; R91.8 Other nonspecific abnormal finding of lung field; R93.89 Abnormal findings on diagnostic imaging of other specified body structures
CPT/HCPCS: 78815; A9552

== ENCOUNTER 2020-02-21 16:49 | Inpatient (IN) | payer MEDICARE, OTHER ==
[~2020-02-21 16:49] MED LIST changes: +Iopamidol-370 76% 500 ML 1 ML ONE; -PEGFILGRASTIM-JMDB 6 MG/0.6 ML SYRINGE SQ SCH
[2020-02-21] MEDS ORDERED: cefTRIAXone\\ROCEPHIN 2 GM VIAL ONE (17:17)
--- NOTE | 2020-02-21 17:34 | RAD ---
Portable frontal chest radiograph: 02/21/2020 COMPARISON: 11/08/2019 HISTORY: Chest pain, shortness of breath FINDINGS: There is a dual-lead AICD inserted via a left-sided approach. There is increased linear int erstitial density with pulmonary hyperinflation which may signify COPD. No pneumothorax or pleural fluid is seen. No lobar consolidation or alveolar edema. Mild linear interstitial density noted in th e lung bases, left greater than right. The left lung base/left costophrenic angle is not fully imaged on this exam. IMPRESSION: Interstitial prominence and pulmonary hyperinflation suggesting COPD. Detailed assessment of the chest better performed on 11/08/2019 CT and 12/04/2019 PET/CT. There is mild increased linear density in the lung bases on this exam, left greater than right, which may signify infectious pneumon itis.
[2020-02-21 18:04] LABS: #Lymphocytes 0.4 thou/uL (1.20-3.40); #Monocytes 0.3 thou/uL (0.11-0.59); #Neutrophils 5.1 thou/uL (1.40-6.50); %Eosinophils 0.7 % (0.0-10.0); %Lymphocytes 6.7 % (21.0-51.0); %Monocytes 5.3 % (0.0-10.0); %Neutrophils 87.3 % (42.0-75.0); Hemoglobin 8.8 g/dL (14.0-18.0); Mean Corpuscular HGB CONC 33.9 g/dL (32.0-36.0); Mean Corpuscular Volume 97.5 fL (78.0-98.0); Mean Platelet Volume 7.3 fL (7.4-10.4); Platelet Count 158 thou/uL (130-400); RBC Distribution Width 14.6 % (11.5-14.5); Red Blood Cell (RBC) Count 2.67 mill/uL (4.70-6.10); White Blood Cell (WBC) Count 5.8 thou/uL (4.8-10.8)
[2020-02-21] MEDS ORDERED: Albuterol 200 PUFF (6.7GM INHALER) ONE (18:06)
[2020-02-21] MEDS ORDERED: Magnesium 2 GM/50 ML BAG (IN WATER) ONE (18:07)
[2020-02-21 18:40] LABS: Actual Bicarbonate (HCO3a) 19.3 mEq/L (22-28); Analyzer IN Cardio ER; Base Excess (BEa) -4.9 mEq/L (-2.0 to +3.0); CO2 Tension 31.8 mmHg (35.0-45.0); Calcium, Ionized (arterial) 1.12 mmol/L (1.12-1.30); Carboxyhemoglobin (COHb) 0.7 gm% (0.0-3.0); Hemoglobin (Hb) 8.8 g/dL (14.0-18.0); Potassium - ABG Lab 4.39 mmol/L (3.70-5.30)
[2020-02-21 18:42] LABS: Puncture Site RBA
[2020-02-21 18:47] LABS: CKMB 2.6 ng/mL (0-6.6)
[2020-02-21 18:51] LABS: ALT (SGPT) 26 U/L (8-55); AST (SGOT) 43 U/L (5-34); Albumin 3.9 g/dL (3.4-4.8); Alkaline Phosphatase 101 U/L (40-110); Anion Gap 15 mmol/L (10-20); BUN (Urea Nitrogen) 18 mg/dL (8.4-25.7); Bilirubin, Total 0.7 mg/dL (0.2-1.2); Calc. Creatinine Clearance 0 mL/min (70-130); Calcium 8.6 mg/dL (7.8-10.44); Carbon Dioxide 21 mmol/L (23-31); Chloride 93 mmol/L (98-107); Estimated GFR-MDRD 47; Globulin 3.3 g/dL (2.4-3.5); Glucose 106 mg/dL (80-115); Lipase 9 U/L (8-78); Magnesium 1.3 mg/dL (1.6-2.6); Potassium 4.8 mmol/L (3.5-5.1); Protein, Total 7.2 g/dL (5.8-8.1); Sodium 124 mmol/L (136-145)
[2020-02-21] MEDS ORDERED: Azithromycin 500 MG VIAL ONE (19:15)
--- NOTE | 2020-02-21 20:20 | CT ---
CT angiogram chest: 02/21/2020 COMPARISON: 11/08/2019 HISTORY: Personal history of malignancy, shortness of breath, chest pain TECHNIQUE: Axial CT imaging at 2.5 mm intervals through the chest with IV contrast using CT angiogram protocol. Coronal and oblique sagittal 3-D reformatted imaging obtained. FINDINGS: Stable pulmonary hyperinflation consistent with air trapping. Limited assessment of the upp er abdomen demonstrates scattered atherosclerotic calcification involving the imaged abdominal aorta and its branches. Multi lead left-sided transvenous pacing device present. There is no pneumothorax seen on either side. No axillary lymphadenopathy. No mediastinal or hilar lymphadenopathy. Coronary arterial calcification noted. Scattered atherosclerotic calcification of the thoracic aorta and the great vessels. There is no pulmonary arterial filling defect seen to suggest the presence of acute pulmonary embolis m on either side. There is mild bilateral lower lobe bronchiectasis and bronchial wall thickening. There is inferior po sterior peripheral reticulonodular density involving the bilateral lower lobes, left greater than right, with focal areas of inferior posterior bilateral lower lobe consolidative change, left greater than right. These findings within both lung bases have progressed since the prior examination. Bilateral upper lobe emphysematous changes are present. There is a focal pleural-based cavitary lesion within the lateral aspect of the right upper lobe on a xial image 40 which is stable in size and demonstrates new cavitation when compared to prior CT. This is better assessed on a recent PET CT. There is a tiny pleural-based nodular density laterally within the right upper lobe on axial image 44 measuring 4 mm in transverse dimension, nonspecific and new when compared to the prior exam. Stable subcentimeter pleural-based nodular density within the right middle lobe noted on axial image 88. There is a nodule within the inferior aspect of the right upper lobe on axial image 79 measuring 6 mm, increased in size when compared to the prior examination, which may reflect malignanc y. There is a posterior right lower lobe nodule on axial image 84 measuring 9 mm, increased in size when compared to the prior exam. Review of the osseous structures demonstrates no worrisome lytic or blastic bone lesions. IMPRESSION: No evidence for pulmonary arterial embolism. Progression of reticulonodular densities within both lung bases with peripheral focal areas of consol idation, most consistent with infectious pneumonitis. In the proper clinical setting, this may reflect lymphangitic spread of cancer. Scattered pulmonary nodules are noted on the right, some of which are larger than on the prior examin ation. This may signify progression of metastatic disease. Correlation with prior PET/CT required.
[2020-02-21] MEDS ORDERED: metroNIDAZOLE 500 MG/100 ML BAG ONE (21:19)
[2020-02-21] MEDS ORDERED: Promethazine HCl 12.5 MG in Sodium Chloride 0.9% 50 ML IVPB PRN (21:48)
[2020-02-21] MEDS ORDERED: HYDROcodone/Acetaminophen 5/325 mg Tablet PO PRN (21:48)
[2020-02-21] MEDS ORDERED: hydrALAZINE 20 MG/ML VIAL SLOW IVP PRN (21:48)
[2020-02-21] MEDS ORDERED: Guaifenesin DM 100-10/5 ML UDCUP PO PRN (21:48)
[2020-02-21] MEDS ORDERED: Ondansetron PF 4 MG/2 ML Vial IVP PRN (21:48)
[2020-02-21] MEDS ORDERED: cloNIDine 0.1 MG TAB PO PRN (21:48)
[2020-02-21] MEDS ORDERED: Labetalol HCl 100 MG/20 ML VIAL SLOW IVP PRN (21:48)
--- NOTE | 2020-02-21 21:50 | PDOC.HHP ---
Hospitalist HPI - History of Present Illness Shortness of breath Hospitalist Results - Labs Result Diagrams: 02/21/20 17:40 02/21/20 17:40 Lab results: WBC 5.8 thou/uL (4.8-10.8) 02/21/20 17:40 Hgb 8.8 g/dL (14.0-18.0) L 02/21/20 17:40 Hct 26.0 % (42.0-52.0) L 02/21/20 17:40 MCV 97.5 fL (78.0-98.0) 02/21/20 17:40 Plt Count 158 thou/uL (130-400) 02/21/20 17:40 Neutrophils % 87.3 % (42.0-75.0) H 02/21/20 17:40 ABG pH 7.40 (7.35-7.45) 02/21/20 18:32 ABG pCO2 31.8 mmHg (35.0-45.0) L 02/21/20 18:32 ABG pO2 86.0 mmHg (> 80.0) H 02/21/20 18:32 Sodium 124 mmol/L (136-145) L 02/21/20 17:40 Potassium 4.8 mmol/L (3.5-5.1) 02/21/20 17:40 Chloride 93 mmol/L (98-107) L 02/21/20 17:40 Carbon Dioxide 21 mmol/L (23-31) L 02/21/20 17:40 BUN 18 mg/dL (8.4-25.7) 02/21/20 17:40 Creatinine 1.50 mg/dL (0.7-1.3) H 02/21/20 17:40 Glucose 106 mg/dL (80-115) 02/21/20 17:40 Lactic Acid 1.0 mmol/L (0.5-2.2) 02/21/20 17:40 Calcium 8.6 mg/dL (7.8-10.44) 02/21/20 17:40 Total Bilirubin 0.7 mg/dL (0.2-1.2) 02/21/20 17:40 AST 43 U/L (5-34) H 02/21/20 17:40 ALT 26 U/L (8-55) 02/21/20 17:40 Alkaline Phosphatase 101 U/L (40-110) 02/21/20 17:40 CK-MB (CK-2) 2.6 ng/mL (0-6.6) 02/21/20 17:40 Troponin I 0.040 ng/mL (< 0.028) H 02/21/20 17:40 B-Natriuretic Peptide 133.1 pg/mL (0-100) H 02/21/20 17:40 Serum Total Protein 7.2 g/dL (5.8-8.1) 02/21/20 17:40 Albumin 3.9 g/dL (3.4-4.8) 02/21/20 17:40 Lipase 9 U/L (8-78) 02/21/20 17:40
[2020-02-21] MEDS ORDERED: Sodium Chloride 0.9% 1,000 ML IV SCH (22:00)
[2020-02-21] MEDS ORDERED: Electrolyte Replacement Protoc 1 EACH EACH FS SCH (22:00)
[2020-02-21] MEDS ORDERED: traMADol HCl 50 MG TAB PO PRN (22:25)
[2020-02-21 22:31] LABS: Troponin I 0.092 ng/mL (< 0.028)
--- NOTE | 2020-02-21 22:51 | PDOC.HHP ---
Hospitalist HPI - History of Present Illness Shortness of breath History of Present Illness: Patient is a 70 year old male with PMH throat cancer on chemotherapy, CAD/IN/stents, gout, COPD who presents to ED for shortness of breath worsening today. Patient reports he has throat cancer treated by Dr Kohler, on chemotherapy with last session today, as he was leaving the oncology clinic noted worse shortness of breath (has some chronic mild SOB but this was significantly worse than normal). He has a history of COPD, unsure if he has been wheezing, has required supplemental o2 in ED off and on (not on O2 chronically). He reports sensation of something in lungs that he needs to cough up. Denies aspiration he is aware of. In ED, labs significant for hgb 8.8, Na 124, CO2 21, Cr 1.5, tni mildly elevated. CTA chest concerning for bilateral lung densities and pulmonary nodules suspicious for infectious pneumonitis vs lymphangitic spread of cancer. With regards to history, patient reports throat cancer was diagnosed 2018, responded to chemotherapy initially and was in remission but relapsed earlier this year and back on chemotherapy now. oncologist is Dr kohler. he has not had radiation or surgery. He has a history of peg tube. He has history of IN and stents, history of pacemaker/AICD, mitral clip. history of tobacco abuse. Hospitalist ROS - Review of Systems Constitutional: denies: fever, chills, sweats, weakness, malaise, other Eyes: denies: pain, vision change, conjunctivae inflammation, eyelid inflammation, redness, other ENT: denies: ear pain, ear discharge, nose pain, nose discharge, nose congestion, mouth pain, mouth swelling, throat pain, throat swelling, other Respiratory: reports: cough, shortness of breath. denies: dry, hemoptysis, SOB with excertion, pleuritic pain, sputum, wheezing, other Cardiovascular: denies: chest pain, palpitations, orthopnea, paroxysmal noc. dyspnea, edema, light headedness, other Gastrointestinal: denies: nausea, vomiting, abdominal pain, diarrhea, co nstipation, melena, hematochezia, other Genitourinary: denies: dysuria, frequency, incontinence, hematuria, retention, other Musculoskeletal: denies: neck pain, shoulder pain, arm pain, back pain, hand pain, leg pain, foot pain, other Skin: denies: rash, lesions, fel[place], bruising, other Neurological: denies: weakness, numbness, incoordination, change in speech, confusion, seizures, other All other systems reviewed; all pertinent +/- noted in HPI/Subj - Medication Medications: carvedilol tablet : Strength - 12.5 mg : ORAL Patient Dose: UNK. Hospitalist History - Past Medical History Other Medical History: CAD/IN/stents, throat cancer, gout, COPD - Past Surgical History Other Surgical History: 2 heart stents, 2 stents in legs, PEG tube placement, mediport placement (removed), Surgical history of orthopedic surgery, RIGHT ANKLE. pacemaker/defibrillator insertion, clips in mitral valve. - Exam General Appearance: NAD, awake alert Eye: PERRL, anicteric sclera ENT: normocephalic atraumatic, no oropharyngeal lesions, moist mucosa Neck: supple, symmetric, no JVD, no thyromegaly, no lymphadenopathy, no carotid bruit Neck - other findings: neck mass, stable per patient Heart: RRR, no murmur, no gallops, no rubs, normal peripheral pulses Respiratory: CTAB, no ronchi, normal chest expansion, no tachypnea, normal percussion Respiratory - other findings: bilateral rales Gastrointestinal: soft, non-tender, non-distended, normal bowel sounds, no palpable masses, no hepatomegaly, no splenomegaly, no bruit Extremities: no cyanosis, no clubbing, no edema Skin: normal turgor, no lesions, no rashes Neurological: cranial nerve grossly intact, normal sensation to touch, no weakness, no focal deficits, no new deficit Musculoskeletal: normal tone, normal strength, no muscle wasting Psychiatric: normal affect, normal behavior, A&O x 3 Hospitalist Results - Labs Result Diagrams: 02/21/20 17:40 02/21/20 17:40 Lab results: WBC 5.8 thou/uL (4.8-10.8) 02/21/20 17:40 Hgb 8.8 g/dL (14.0-18.0) L 02/21/20 17:40 Hct 26.0 % (42.0-52.0) L 02/21/20 17:40 MCV 97.5 fL (78.0-98.0) 02/21/20 17:40 Plt Count 158 thou/uL (130-400) 02/21/20 17:40 Neutrophils % 87.3 % (42.0-75.0) H 02/21/20 17:40 ABG pH 7.40 (7.35-7.45) 02/21/20 18:32 ABG pCO2 31.8 mmHg (35.0-45.0) L 02/21/20 18:32 ABG pO2 86.0 mmHg (> 80.0) H 02/21/20 18:32 Sodium 124 mmol/L (136-145) L 02/21/20 17:40 Potassium 4.8 mmol/L (3.5-5.1) 02/21/20 17:40 Chloride 93 mmol/L (98-107) L 02/21/20 17:40 Carbon Dioxide 21 mmol/L (23-31) L 02/21/20 17:40 BUN 18 mg/dL (8.4-25.7) 02/21/20 17:40 Creatinine 1.50 mg/dL (0.7-1.3) H 02/21/20 17:40 Glucose 106 mg/dL (80-115) 02/21/20 17:40 Lactic Acid 1.0 mmol/L (0.5-2.2) 02/21/20 17:40 Calcium 8.6 mg/dL (7.8-10.44) 02/21/20 17:40 Total Bilirubin 0.7 mg/dL (0.2-1.2) 02/21/20 17:40 AST 43 U/L (5-34) H 02/21/20 17:40 ALT 26 U/L (8-55) 02/21/20 17:40 Alkaline Phosphatase 101 U/L (40-110) 02/21/20 17:40 CK-MB (CK-2) 2.6 ng/mL (0-6.6) 02/21/20 17:40 Troponin I 0.092 ng/mL (< 0.028) H 02/21/20 21:35 B-Natriuretic Peptide 133.1 pg/mL (0-100) H 02/21/20 17:40 Serum Total Protein 7.2 g/dL (5.8-8.1) 02/21/20 17:40 Albumin 3.9 g/dL (3.4-4.8) 02/21/20 17:40 Lipase 9 U/L (8-78) 02/21/20 17:40 Additional comment: VITAL SIGNS [facility] Feb 21, 2020 21:05 DEBRA Lugo, Alina BP: 114/74 Pulse: 92 Resp: 28 O2 sat: 100 on (Room Air) Time: 02/21/2020 21:05. labs, imaging reports, ED documentation reviewed Hospitalist H&P A/P - Plan Plan: Patient is a 70 year old male with PMH throat cancer on chemotherapy, CAD/IN/stents, gout, COPD who presents to ED for shortness of breath worsening today. # bilateral pneumonia vs lymphangitis spread of cancer - will treat as aspiration pneumonia given history - admit to floor - azithromycin, rocephin, flagyl - speech consult, aspiration precautions - follow up covid screen # history of throat cancer - noted, on chemotherapy last session today # abnormal lung imaging - concerning for metastasis or lymphangitic spread to lungs - consult Dr Kohler to see if any further investigation into possible lymphangytic spread is needed (does not need to see if this is new or not concerning to her) # anemia - hgb 8.8, this is similar to previous values, continue dvt ppx and monitor for bleeding # hyponatremia - Na 124, baseline appears to be 129-133 range, trend BMP and consult oncology who may know if SIADH is part of patient's cancer syndrome # ALISTAIR - perhaps prerenal, give 1 bag IVF and recheck BMP, also bladder scan # elevated troponin # history of systolic CHF # HTN # HLD # CAD w/ history of IN - EF 30-35%, has AICD/pacemaker - resume home meds - suspect demand ischemia, no chest pain, defer further cardiac workup in setting of pneumonia # history of tobacco abuse DVT/GI ppx
[2020-02-21] MEDS ORDERED: Magnesium Sulfate 4 GM in Sodium Chloride 0.9% 250 ML 250 ML IVPB SCH (23:00)
[2020-02-21] MEDS ORDERED: Sodium Chloride 0.9% 500 ML IV SCH (23:15)
[2020-02-22] MEDS: methylPREDNISolone Sod Succ/PF 125 MG/2 ML VIAL IVP SCH ×4 (01:15→21:40)
[2020-02-22] MEDS ORDERED: Sodium Chloride 0.9% 500 ML IV SCH (01:30)
[2020-02-22 01:57] LABS: Troponin I 0.105 ng/mL (< 0.028)
[2020-02-22 01:58] LABS: SARS-CoV-2 NAA Rapid Test Not Detected (NotDetected)
[2020-02-22 02:34] VITALS: BMI 19.3
[2020-02-22 04:56] LABS: #Basophils 0.1 thou/uL (0.0-0.2); #Lymphocytes 0.3 thou/uL (1.20-3.40); #Monocytes 0.2 thou/uL (0.11-0.59); #Neutrophils 5.8 thou/uL (1.40-6.50); %Basophils 0.8 % (0.0-1.0); %Eosinophils 0.2 % (0.0-10.0); %Lymphocytes 3.9 % (21.0-51.0); %Monocytes 3.1 % (0.0-10.0); %Neutrophils 91.9 % (42.0-75.0); Hemoglobin 8.5 g/dL (14.0-18.0); Mean Corpuscular HGB CONC 33.5 g/dL (32.0-36.0); Mean Corpuscular Hemoglobin 32.5 pg (27.0-31.0); Mean Platelet Volume 7.7 fL (7.4-10.4); Platelet Count 140 thou/uL (130-400); RBC Distribution Width 14.8 % (11.5-14.5); Red Blood Cell (RBC) Count 2.62 mill/uL (4.70-6.10); White Blood Cell (WBC) Count 6.3 thou/uL (4.8-10.8)
[2020-02-22 05:17] LABS: Anion Gap 14 mmol/L (10-20); BUN (Urea Nitrogen) 19 mg/dL (8.4-25.7); Calc. Creatinine Clearance 54 mL/min (70-130); Calcium 8.4 mg/dL (7.8-10.44); Carbon Dioxide 21 mmol/L (23-31); Chloride 97 mmol/L (98-107); Estimated GFR-MDRD 67; Glucose 209 mg/dL (80-115); Magnesium 2.8 mg/dL (1.6-2.6); Potassium 3.8 mmol/L (3.5-5.1); Sodium 128 mmol/L (136-145)
[2020-02-22] MEDS ORDERED: Electrolyte Replacement Protocol FS PRN (06:30)
[2020-02-22] MEDS: Mometasone 200 MCG/Formoterol 5 MCG 120 PUFF INHALER INH SCH ×2 (07:08→18:57)
[2020-02-22] MEDS: Aluminum & Magnesium Hydroxide 60 ML, Lidocaine 2% Viscous Solution 30 ML, diphenhydrAM... SSW PRN ×3 (07:17→21:41)
[2020-02-22 08:24] LABS: Bilirubin Negative (Negative); Blood, Urine Negative (Negative); Clarity Clear (Clear); Glucose, Urine (Dipstick) Normal (Negative); Ketone, Urine 10 mg/dL (Negative); Leukocyte Negative Leu/uL (Negative); Nitrite Negative (Negative); Protein, Urine (Dipstick) Negative (Neg-Trace); RBC/HPF 0-3 HPF (0-3); Specific Gravity, Urine 1.022 (1.002-1.036); Squamous Epithelial None Seen HPF (0-3); Urobilinogen Normal mg/dL (Less than 2); WBC/HPF 0-3 HPF (0-3)
[2020-02-22 08:35] LABS: Bacteria/HPF Rare-Few HPF (None Seen)
[2020-02-22 08:36] LABS: Urine Culture Reflex No No
[2020-02-22] MEDS ORDERED: Non-Formulary Item 1 EACH (Fluticasone/Salmeterol [Advair Diskus 250/50] 1 EACH Blst.W.De IH SCH (09:00)
[2020-02-22] MEDS: Carvedilol 6.25 MG TAB PO SCH ×2 (09:14→20:39)
[2020-02-22] MEDS: Atorvastatin Calcium 40 MG TAB PO SCH (09:15)
[2020-02-22] MEDS: Clopidogrel Bisulfate 75 MG TAB PO SCH (09:15)
[2020-02-22] MEDS: Lisinopril 2.5 MG TAB PO SCH (09:16)
[2020-02-22] MEDS: Famotidine 20 MG TAB PO SCH (09:16)
[2020-02-22] MEDS: Polyethylene Glycol 3350 17 GM Packet PO SCH (09:16)
[2020-02-22] MEDS: metroNIDAZOLE 500 MG TAB PO SCH ×3 (09:19→20:39)
[2020-02-22 13:34] LABS: Troponin I 0.131 ng/mL (< 0.028)
--- NOTE | 2020-02-22 15:48 | CON ---
DATE OF CONSULTATION: REASON FOR CONSULTATION: Squamous-cell carcinoma. HISTORY OF PRESENT ILLNESS: Mr. Sharp is a 70-year-old gentleman with squamous-cell carcinoma of the piriform sinus. He was diagnosed in 2017 and underwent concurrent chemoradiation. He had relapse in April 2019 and was placed on carboplatin and Taxotere. He then progressed again in December 2019. He has been on methotrexate weekly since that time. He had his last treatment yesterday in our clinic. As he was leaving, he began to have worsening shortness of breath. He typically does have shortness of breath routinely, but this he felt like he could not breathe, so he came to the emergency room for evaluation. Here, he had a CT angio of the chest, which was compared to his November 07 CT, which showed no evidence of PE, but possible progression of reticulonodular densities within both lung bases, that was consistent with infectious pneumonitis. There were scattered pulmonary nodules on the right, which were slightly larger and might signify progression. He was due for restaging in a couple of weeks. He has been essentially stable throughout treatment. He does have a right cervical neck ulceration, that he is getting wound care for. He has been having some mouth ulcers from the methotrexate and is using Magic mouthwash. He states he is feeling significantly better after starting on steroids with this admission. His only complaint at this time is heartburn. He is on room air and saturating 95%. PAST MEDICAL HISTORY: 1. 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 2. Right cervical neck ulceration. 3. History of tobacco and alcohol abuse. 4. History of aspiration. 5. History of GI bleed with [place] esophagus. 6. Coronary artery disease. 7. COPD. PAST SURGICAL HISTORY: 1. Cardiac stents. 2. Clips in mitral valve. 3. Leg stents. 4. AAA repair. ALLERGIES: NO KNOWN DRUG ALLERGIES. HOME MEDICATIONS: 1. Carvedilol. 2. Zofran. 3. Protonix. 4. Tramadol. 5. Magic mouthwash. FAMILY HISTORY: His brother had throat cancer. SOCIAL HISTORY: Recently , 2 children. Current everyday smoker with 50 plus pack-year history. No alcohol or illicit drug use. REVIEW OF SYSTEMS: A 12-point review of systems is negative except for noted in HPI. PHYSICAL EXAMINATION: VITAL SIGNS: Temperature is 97.5, pulse is 65, respiratory rate is 18, BP is 94/50. He is 95% on room air. GENERAL: This is a chronically ill-appearing male, in no acute distress. HEENT: Normocephalic, atraumatic. Pupils are equal and reactive to light. NECK: He has right cervical lymphadenopathy with a wound. Dressing intact. LUNGS: Diminished throughout. CV: Regular rate and rhythm. ABDOMEN: Soft, nondistended. Bowel sounds are positive. EXTREMITIES: No clubbing or cyanosis. SKIN: No rash. HEMATOLOGICAL: No petechiae or purpura. NEUROLOGICAL: Nonfocal. PERTINENT LABORATORY DATA AND X-RAYS: Current WBCs are 6.3, hemoglobin 8.5, hematocrit 25.4, platelet count is 140,000, he has 92% neutrophils, 4% lymphs. Sodium is 128, potassium 3.8, chloride 97, CO2 is 21, BUN is 19, creatinine 1.1, lactic acid is 1, calcium 8.4, magnesium 2.8, bilirubin 0.7, AST is 43, ALT is 26, alkaline phosphatase is 101. BNP is 133. Troponin 0.105. Serum total protein is 7.2, albumin 3.9, globulin 3.3, lipase 9. Urine is negative. COVID rapid RNA is negative. Radiology per history of present illness. ASSESSMENT: 1. Metastatic squamous-cell carcinoma of the throat. 2. Chronic obstructive pulmonary disease. 3. History of aspiration. 4. Possible pneumonia. DISCUSSION: The patient has been started on antibiotics and high-dose steroids. His breathing has improved and he is feeling much better. I will add his Protonix to his med regimen as he is on steroids and has heartburn. Speech therapist has been asked to see the patient regarding his aspiration. Hopefully, he will be able to discharge in the next several days with continuation of steroids at home. Thank you for the consult. We will follow along with his hospital course. Job ID: [id number]
--- NOTE | 2020-02-22 20:13 | PDOC.HOSPP ---
- Subjective Encounter Date: 02/22/20 Encounter Time: 07:45 Subjective: patient resting comfortably in bed. He reports improvement in his breathing. Denies chest pain, abdominal pain. Is requesting a more substantial diet. - Objective Vital Signs & Weight: Vital Signs (12 hours) Temp Pulse Resp BP Pulse Ox 02/22/20 18:57 72 16 92 L 02/22/20 18:56 72 16 92 L 02/22/20 15:49 97.9 F 70 18 105/58 L 94 L 02/22/20 14:35 72 16 02/22/20 13:08 95 02/22/20 12:55 97.5 F L 65 18 94/50 L 95 02/22/20 11:43 98.4 F 69 18 84/53 L 94 L 02/22/20 10:46 72 19 Weight Admit Weight 130 lb 8 oz Weight 130 lb 8 oz I&O: 02/21/20 02/22/20 02/23/20 06:59 06:59 06:59 Intake Total 2129 Output Total 2500 Balance -371 Result Diagrams: 02/22/20 04:40 02/22/20 04:40 Hospitalist ROS - Review of Systems Constitutional: denies: fever, chills Respiratory: reports: cough, shortness of breath Cardiovascular: denies: chest pain, palpitations Gastrointestinal: reports: nausea, vomiting Neurological: reports: weakness - Medication Medications: Active Medications Generic Name Dose Route Start Last Admin Trade Name Freq PRN Reason Stop Dose Admin Hydrocodone Bitart/Acetaminophen 1 tab 02/21/20 21:48 02/22/20 09:19 Hydrocodone/Acetaminophen 5/325 Mg Tablet PO 1 tab Q4H PRN Administration Moderate Pain (4-6) Albuterol/Ipratropium 3 ml 02/22/20 07:00 02/22/20 18:56 Ipratropium/Albuterol Sulfate 3 Ml Neb NEB 3 ml [id number] LENIN Administration Atorvastatin Calcium 80 mg 02/22/20 09:00 02/22/20 09:15 Atorvastatin Calcium 40 Mg Tab PO Not Given DAILY LENIN Carvedilol 12.5 mg 02/22/20 09:00 02/22/20 09:14 Carvedilol 6.25 Mg Tab PO 12.5 mg BID LENIN Administration Clopidogrel Bisulfate 75 mg 02/22/20 09:00 02/22/20 09:15 Clopidogrel Bisulfate 75 Mg Tab PO Not Given DAILY [facility] Al Hydroxide/Mg Hydroxide 60 0 ml 02/22/20 03:25 02/22/20 17:17 ml/ Lidocaine HCl 30 ml/ SSW 60 ml Diphenhydramine HCl 75 mg PRN PRN Administration Mouth Irritation Famotidine 20 mg 02/22/20 09:00 02/22/20 09:16 Famotidine 20 Mg Tab PO Not Given DAILY [facility] Lisinopril 2.5 mg 02/22/20 09:00 02/22/20 09:16 Lisinopril 2.5 Mg Tab PO Not Given DAILY [facility] Methylprednisolone Sodium Succinate 60 mg 02/21/20 22:00 02/22/20 15:25 Methylprednisolone Sod Succ/Pf 125 Mg/2 Ml Vial IVP 60 mg Q8HR LENIN Administration Metronidazole 500 mg 02/22/20 09:00 02/22/20 15:25 Metronidazole 500 Mg Tab PO 500 mg TID LENIN Administration Mometasone Furoate/Formoterol Fumar 2 puff 02/22/20 06:30 02/22/20 18:57 Mometasone 200 Mcg/Formoterol 5 Mcg 120 Puff Inhaler INH 2 puff BID-RT LENIN Administration Polyethylene Glycol 17 gm 02/22/20 09:00 02/22/20 09:16 Polyethylene Glycol 3350 17 Gm Packet PO Not Given DAILY [facility] Tramadol HCl 50 mg 02/21/20 22:25 02/22/20 01:49 Tramadol Hcl 50 Mg Tab PO 50 mg Q6H PRN Administration Moderate Pain (4-6) - Exam General Appearance: NAD, awake alert, ill appearing Eye: PERRL, anicteric sclera ENT: normocephalic atraumatic Heart: RRR, no murmur Respiratory: normal chest expansion, rhonchi Respiratory - other findings: of bilateral bases Gastrointestinal: soft, non-tender, non-distended Extremities: no cyanosis, no edema Neurological: cranial nerve grossly intact Psychiatric: normal affect, normal behavior, A&O x 3 Hosp A/P (1) AICD (automatic cardioverter/defibrillator) present Code(s): Z95.810 - PRESENCE OF AUTOMATIC (IMPLANTABLE) CARDIAC DEFIBRILLATOR Status: Chronic (2) Anemia, chronic disease Code(s): D63.8 - ANEMIA IN OTHER CHRONIC DISEASES CLASSIFIED ELSEWHERE Status: Chronic (3) CAD (coronary artery disease) Code(s): I25.10 - ATHSCL HEART DISEASE OF [place] CORONARY ARTERY W/O ANG PCTRS Status: Chronic (4) CHF (congestive heart failure) Code(s): I50.9 - HEART FAILURE, UNSPECIFIED Status: Chronic (5) COPD exacerbation Code(s): J44.1 - CHRONIC OBSTRUCTIVE PULMONARY DISEASE W (ACUTE) EXACERBATION Status: Chronic (6) Malignant tumor of pyriform sinus Code(s): C12 - MALIGNANT NEOPLASM OF PYRIFORM SINUS Status: Chronic (7) PAD (peripheral artery disease) Code(s): I73.9 - PERIPHERAL VASCULAR DISEASE, UNSPECIFIED Status: Chronic - Plan 70 year old male with PMH throat cancer on chemotherapy, CAD/MT/stents, gout, COPD who presents to ED for shortness of breath worsening today. # bilateral pneumonia vs lymphangitis spread of cancer - transferred to oncology floor - azithromycin, rocephin, flagyl - speech consult, aspiration precautions - covid negative # history of throat cancer - last chemotherapy session 02/20 - Dr. Kohler consulted # anemia - stable - hgb 8.8, this is similar to previous values, continue dvt ppx and monitor for bleeding # hyponatremia - - on admit Na 124 - recheck this morning 128 # ALISTAIR - perhaps prerenal, give 1 bag IVF and recheck BMP, also bladder scan # elevated troponin - continue to trend # history of systolic CHF - stable # CAD w/ history of MT - EF 30-35%, has AICD/pacemaker - resume home meds - suspect demand ischemia, no chest pain, defer further cardiac workup in setting of pneumonia # history of tobacco abuse DVT/GI ppx
[2020-02-22] MEDS: Enoxaparin Sodium 40 MG/0.4 ML SYRINGE SC SCH (20:38)
[2020-02-22] MEDS: cefTRIAXone\\ROCEPHIN 1 GM in Sodium Chloride 0.9% 100 ML IVPB SCH (20:38)
[2020-02-22] MEDS: Nicotine 14 MG PATCH TD SCH (20:38)
[2020-02-22 21:10] LABS: Troponin I 0.112 ng/mL (< 0.028)
[2020-02-22] MEDS: Azithromycin 500 MG in Sodium Chloride 0.9% 250 ML 250 ML IVPB SCH (21:41)
[2020-02-23] MEDS: methylPREDNISolone Sod Succ/PF 125 MG/2 ML VIAL IVP SCH ×3 (05:18→20:37)
[2020-02-23] MEDS: Mometasone 200 MCG/Formoterol 5 MCG 120 PUFF INHALER INH SCH ×3 (07:20→22:35)
[2020-02-23] MEDS: Pantoprazole 40 MG VIAL IVP SCH (08:03)
[2020-02-23] MEDS: Carvedilol 6.25 MG TAB PO SCH ×2 (08:03→20:37)
[2020-02-23] MEDS: Atorvastatin Calcium 40 MG TAB PO SCH (08:04)
[2020-02-23] MEDS: Clopidogrel Bisulfate 75 MG TAB PO SCH (08:04)
[2020-02-23] MEDS: Famotidine 20 MG TAB PO SCH (08:05)
[2020-02-23] MEDS: metroNIDAZOLE 500 MG TAB PO SCH ×3 (08:06→20:37)
[2020-02-23] MEDS: Lisinopril 2.5 MG TAB PO SCH (08:06)
[2020-02-23] MEDS: Polyethylene Glycol 3350 17 GM Packet PO SCH (09:05)
[2020-02-23 10:32] LABS: ALT (SGPT) 17 U/L (8-55); AST (SGOT) 14 U/L (5-34); Albumin 3.5 g/dL (3.4-4.8); Alkaline Phosphatase 68 U/L (40-110); Anion Gap 14 mmol/L (10-20); BUN (Urea Nitrogen) 20 mg/dL (8.4-25.7); Bilirubin, Total 0.3 mg/dL (0.2-1.2); Calc. Creatinine Clearance 59 mL/min (70-130); Calcium 8.6 mg/dL (7.8-10.44); Carbon Dioxide 22 mmol/L (23-31); Chloride 100 mmol/L (98-107); Estimated GFR-MDRD 73; Globulin 2.6 g/dL (2.4-3.5); Glucose 153 mg/dL (80-115); Potassium 3.9 mmol/L (3.5-5.1); Protein, Total 6.1 g/dL (5.8-8.1); Sodium 132 mmol/L (136-145)
--- NOTE | 2020-02-23 12:22 | EKG ---
Test Reason : Blood Pressure : / mmHG Vent. Rate : 108 BPM Atrial Rate : 108 BPM P-R Int : 152 ms QRS Dur : 084 ms QT Int : 336 ms P-R-T Axes : -05 023 109 degrees QTc Int : 450 ms Sinus tachycardia Low voltage QRS Cannot rule out Anterior infarct , age undetermined Abnormal ECG Confirmed by TIMOTHY TRAN ([id number]), electronic news gathering editor DONI HIDALGO ([id number]) on 02/23/2020 12:21:54 PM Referred By: Confirmed By:TIMOTHY TRAN
[2020-02-23] MEDS: Aluminum & Magnesium Hydroxide 60 ML, Lidocaine 2% Viscous Solution 30 ML, diphenhydrAM... SSW PRN ×2 (13:31→17:44)
--- NOTE | 2020-02-23 17:27 | PDOC.HOSPP ---
- Subjective Encounter Date: 02/23/20 Encounter Time: 12:55 Subjective: pt up in bed states he feels much better than yesterday. - Objective Vital Signs & Weight: Vital Signs (12 hours) Temp Pulse Resp BP BP BP Pulse Ox 02/23/20 14:37 69 16 02/23/20 12:00 97.8 F 69 16 106/55 L 92 L 02/23/20 10:38 72 16 02/23/20 08:38 97.6 F 67 18 100/53 L 92 L 02/23/20 08:06 64 02/23/20 08:03 101/56 L 02/23/20 08:00 92 L 02/23/20 07:20 64 16 02/23/20 07:10 64 16 Weight Admit Weight 130 lb 8 oz Weight 130 lb 8 oz I&O: 02/22/20 02/23/20 02/24/20 06:59 06:59 06:59 Intake Total 2879 640 Output Total 3750 650 Balance -871 -10 Result Diagrams: 02/22/20 04:40 02/23/20 09:45 Hospitalist ROS - Review of Systems Cardiovascular: denies: chest pain, palpitations, orthopnea, paroxysmal noc. dyspnea, edema, light headedness, other Gastrointestinal: denies: nausea, vomiting, abdominal pain, diarrhea, constipation, melena, hematochezia, other Genitourinary: denies: dysuria, frequency, incontinence, hematuria, retention, other - Medication Medications: Active Medications Generic Name Dose Route Start Last Admin Trade Name Freq PRN Reason Stop Dose Admin Hydrocodone Bitart/Acetaminophen 1 tab 02/21/20 21:48 02/22/20 09:19 Hydrocodone/Acetaminophen 5/325 Mg Tablet PO 1 tab Q4H PRN Administration Moderate Pain (4-6) Albuterol/Ipratropium 3 ml 02/22/20 07:00 02/23/20 14:37 Ipratropium/Albuterol Sulfate 3 Ml Neb NEB 3 ml [id number] LENIN Administration Atorvastatin Calcium 80 mg 02/22/20 09:00 02/23/20 08:04 Atorvastatin Calcium 40 Mg Tab PO 80 mg DAILY LENIN Administration Carvedilol 12.5 mg 02/22/20 09:00 02/23/20 08:03 Carvedilol 6.25 Mg Tab PO 12.5 mg BID LENIN Administration Clopidogrel Bisulfate 75 mg 02/22/20 09:00 02/23/20 08:04 Clopidogrel Bisulfate 75 Mg Tab PO Not Given DAILY LENIN Al Hydroxide/Mg Hydroxide 60 0 ml 02/22/20 03:25 02/23/20 13:31 ml/ Lidocaine HCl 30 ml/ SSW 10 ml Diphenhydramine HCl 75 mg PRN PRN Administration Mouth Irritation Enoxaparin Sodium 40 mg 02/22/20 21:00 02/22/20 20:38 Enoxaparin Sodium 40 Mg/0.4 Ml Syringe SC 40 mg 2100 LENIN Administration Famotidine 20 mg 02/22/20 09:00 02/23/20 08:05 Famotidine 20 Mg Tab PO 20 mg DAILY LENIN Administration Ceftriaxone Sodium 1 gm/ 100 mls @ 200 mls/hr 02/22/20 21:00 02/22/20 20:38 Sodium Chloride IVPB 100 mls HS LENIN Administration Azithromycin 500 mg/ Sodium 250 mls @ 250 mls/hr 02/22/20 21:00 02/22/20 21:41 Chloride IVPB 250 mls HS LENIN Administration Lisinopril 2.5 mg 02/22/20 09:00 02/23/20 08:06 Lisinopril 2.5 Mg Tab PO Not Given DAILY [facility] Methylprednisolone Sodium Succinate 60 mg 02/21/20 22:00 02/23/20 13:40 Methylprednisolone Sod Succ/Pf 125 Mg/2 Ml Vial IVP 60 mg Q8HR LENIN Administration Metronidazole 500 mg 02/22/20 09:00 02/23/20 16:10 Metronidazole 500 Mg Tab PO 500 mg TID LENIN Administration Mometasone Furoate/Formoterol Fumar 2 puff 02/22/20 06:30 02/23/20 07:20 Mometasone 200 Mcg/Formoterol 5 Mcg 120 Puff Inhaler INH 2 puff BID-RT LENIN Administration Nicotine 14 mg 02/22/20 19:00 02/22/20 20:38 Nicotine 14 Mg Patch TD 14 mg Q24HR LENIN Administration Pantoprazole Sodium 40 mg 02/23/20 09:00 02/23/20 08:03 Pantoprazole 40 Mg Vial IVP 40 mg DAILY LENIN Administration Polyethylene Glycol 17 gm 02/22/20 09:00 02/23/20 09:05 Polyethylene Glycol 3350 17 Gm Packet PO Not Given DAILY LENIN Tramadol HCl 50 mg 02/21/20 22:25 02/22/20 01:49 Tramadol Hcl 50 Mg Tab PO 50 mg Q6H PRN Administration Moderate Pain (4-6) - Exam Neck: negative: supple, symmetric, no JVD, no thyromegaly, no lymphadenopathy, no carotid bruit, JVD Heart: negative: RRR, no murmur, no gallops, no rubs, normal peripheral pulses, irregular, diminshed peripheral pulses, murmur present, II/IV, III/IV Respiratory: negative: CTAB, no wheezes, no rales, no ronchi, normal chest expansion, no tachypnea, normal percussion, rales, rhonchi, tachypneic, wheezes Gastrointestinal: negative: soft, non-tender, non-distended, normal bowel soun ds, no palpable masses, no hepatomegaly, no splenomegaly, no bruit, no guarding, no rigidity, tender to palpation, distended, diminished bowl sounds, voluntary guarding Hosp A/P - Plan Hosp A/P (1) AICD (automatic cardioverter/defibrillator) present Code(s): Z95.810 - PRESENCE OF AUTOMATIC (IMPLANTABLE) CARDIAC DEFIBRILLATOR Status: Chronic (2) Anemia, chronic disease Code(s): D63.8 - ANEMIA IN OTHER CHRONIC DISEASES CLASSIFIED ELSEWHERE Status: Chronic (3) CAD (coronary artery disease) Code(s): I25.10 - ATHSCL HEART DISEASE OF [place] CORONARY ARTERY W/O ANG PCTRS Status: Chronic (4) CHF (congestive heart failure) Code(s): I50.9 - HEART FAILURE, UNSPECIFIED Status: Chronic (5) COPD exacerbation Code(s): J44.1 - CHRONIC OBSTRUCTIVE PULMONARY DISEASE W (ACUTE) EXACERBATION Status: Chronic (6) Malignant tumor of pyriform sinus Code(s): C12 - MALIGNANT NEOPLASM OF PYRIFORM SINUS Status: Chronic (7) PAD (peripheral artery disease) Code(s): I73.9 - PERIPHERAL VASCULAR DISEASE, UNSPECIFIED Status: Chronic 8) Acute hypoxic resp failue most likely due to combination of copd exab vs pneumonia community vs lymphagitis spread of cancer. - Plan 70 year old male with PMH throat cancer on chemotherapy, CAD/RI/stents, gout, COPD who presents to ED for shortness of breath worsening today. # bilateral pneumonia vs lymphangitis spread of cancer - transferred to oncology floor - azithromycin, rocephin, flagyl - speech consult, aspiration precautions - covid negative # history of throat cancer - last chemotherapy session 02/20 - Dr. Kohler consulted # anemia - stable - hgb 8.8, this is similar to previous values, continue dvt ppx and monitor for bleeding # hyponatremia - - on admit Na 124 - recheck this morning 128 # ALISTAIR - perhaps prerenal, give 1 bag IVF and recheck BMP, also bladder scan # elevated troponin - continue to trend # history of systolic CHF - stable compensated # CAD w/ history of [place] - EF 30-35%, has AICD/pacemaker - resume home meds - suspect demand ischemia, no chest pain, defer further cardiac workup in setting of pneumonia # history of tobacco abuse dvt ppx. 02/22 will get echo he has significant cad with stents.
[2020-02-23] MEDS: Azithromycin 500 MG in Sodium Chloride 0.9% 250 ML 250 ML IVPB SCH (20:38)
[2020-02-23] MEDS: cefTRIAXone\\ROCEPHIN 1 GM in Sodium Chloride 0.9% 100 ML IVPB SCH (20:38)
[2020-02-23] MEDS: Enoxaparin Sodium 40 MG/0.4 ML SYRINGE SC SCH (20:38)
[2020-02-23] MEDS: Nicotine 14 MG PATCH TD SCH (20:38)
[2020-02-23] MEDS: Acetaminophen 325 MG TAB PO PRN (20:49)
[2020-02-24] MEDS: methylPREDNISolone Sod Succ/PF 125 MG/2 ML VIAL IVP SCH (05:26)
[2020-02-24] MEDS: Mometasone 200 MCG/Formoterol 5 MCG 120 PUFF INHALER INH SCH ×2 (06:20→18:58)
[2020-02-24 06:55] LABS: ALT (SGPT) 17 U/L (8-55); AST (SGOT) 12 U/L (5-34); Albumin 3.3 g/dL (3.4-4.8); Alkaline Phosphatase 69 U/L (40-110); Anion Gap 13 mmol/L (10-20); BUN (Urea Nitrogen) 21 mg/dL (8.4-25.7); Bilirubin, Total 0.2 mg/dL (0.2-1.2); Calc. Creatinine Clearance 65 mL/min (70-130); Calcium 8.7 mg/dL (7.8-10.44); Carbon Dioxide 24 mmol/L (23-31); Chloride 100 mmol/L (98-107); Estimated GFR-MDRD 83; Globulin 2.5 g/dL (2.4-3.5); Glucose 126 mg/dL (80-115); Magnesium 1.8 mg/dL (1.6-2.6); Potassium 3.6 mmol/L (3.5-5.1); Protein, Total 5.8 g/dL (5.8-8.1); Sodium 133 mmol/L (136-145)
[2020-02-24] MEDS ORDERED: Magnesium 2 GM/50 ML 2 GM in Premix Bag 1 BAG IVPB SCH (07:30)
[2020-02-24] MEDS: Lisinopril 2.5 MG TAB PO SCH (08:48)
[2020-02-24] MEDS: Carvedilol 6.25 MG TAB PO SCH ×2 (08:49→20:17)
[2020-02-24] MEDS: Atorvastatin Calcium 40 MG TAB PO SCH (08:49)
[2020-02-24] MEDS: metroNIDAZOLE 500 MG TAB PO SCH ×3 (08:50→20:17)
[2020-02-24] MEDS: Clopidogrel Bisulfate 75 MG TAB PO SCH (08:50)
[2020-02-24] MEDS: Famotidine 20 MG TAB PO SCH (08:50)
[2020-02-24] MEDS: Pantoprazole 40 MG VIAL IVP SCH (08:50)
[2020-02-24] MEDS: Polyethylene Glycol 3350 17 GM Packet PO SCH (09:15)
[2020-02-24] MEDS: Acetylcysteine 10% 100 MG/ML 30 ml Vial INH SCH ×2 (14:40→18:59)
[2020-02-24] MEDS: Aluminum & Magnesium Hydroxide 60 ML, Lidocaine 2% Viscous Solution 30 ML, diphenhydrAM... SSW PRN (17:57)
[2020-02-24] MEDS: Nicotine 14 MG PATCH TD SCH (20:16)
[2020-02-24] MEDS: Enoxaparin Sodium 40 MG/0.4 ML SYRINGE SC SCH (20:16)
[2020-02-24] MEDS: Acetaminophen 325 MG TAB PO PRN (20:21)
[2020-02-25] MEDS: Acetylcysteine 10% 100 MG/ML 30 ml Vial INH SCH ×4 (00:38→19:51)
[2020-02-25] MEDS ORDERED: Magnesium 2 GM/50 ML 2 GM in Premix Bag 1 BAG IVPB SCH (07:30)
[2020-02-25] MEDS: Mometasone 200 MCG/Formoterol 5 MCG 120 PUFF INHALER INH SCH ×2 (07:32→19:53)
[2020-02-25] MEDS: Aluminum & Magnesium Hydroxide 60 ML, Lidocaine 2% Viscous Solution 30 ML, diphenhydrAM... SSW PRN ×2 (08:01→17:06)
[2020-02-25] MEDS: predniSONE 20 MG TAB PO SCH (08:10)
[2020-02-25] MEDS: metroNIDAZOLE 500 MG TAB PO SCH ×3 (09:41→20:06)
[2020-02-25] MEDS: Polyethylene Glycol 3350 17 GM Packet PO SCH (09:41)
[2020-02-25] MEDS: Carvedilol 6.25 MG TAB PO SCH (09:41)
[2020-02-25] MEDS: Atorvastatin Calcium 40 MG TAB PO SCH (09:42)
[2020-02-25] MEDS: Clopidogrel Bisulfate 75 MG TAB PO SCH (09:42)
[2020-02-25] MEDS: Lisinopril 2.5 MG TAB PO SCH (09:43)
--- NOTE | 2020-02-25 12:56 | PQF ---
CLINICAL DOCUMENTATION CLARIFICATION FORM: Dear Dr. SUNSHINE Date: 01/25/20 7413 Please exercise your independent, professional judgment in responding to the clarification form. Clinical indicators are provided on the bottom of this form for your review. Please check appropriate box(es) to clarify if the following diagnosis has been ruled in our ruled out: ASPIRATION PNEUMONIA [ ] Ruled in diagnosis [ X ] Continue to treat [ ] Resolved [ ] Ruled out diagnosis [ ] Improving [ ] Cannot rule out diagnosis [ ] Other diagnosis [ ] Unable to determine In addition, please specify: Present on Admission (POA): [ X ] Yes [ ] No [ ] Unable to determine For continuity of documentation, please document condition throughout progress notes and discharge summary. Thank You. 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 02/21 PN (ZULLY) BILATERAL PNEUMONIA VS LYMPHANGITIS SPREAD OF CANCER 02/22 PN ( GERALDINE) BILATERAL PNEUMONIA VS LYMPHANGITIS SPREAD OF CANCER RISK FACTORS / RESULTS AND LOCATION IN MR HX THORAT CANCER, IMMUNOCOMPROMISED RECENT CHEMOTHERAPY (H&P/ATERNO ) 02/20 TREATMENTS / RESULTS AND LOCATION IN MR ZITHROMAX IV ( 02/21 02/22) ROCEPHIN IV ( 02/21 02/22) THANK YOU! CDS Signature: BRIGITTE LENTZ RN Phone #: [phone] Date: 02/25/20 MAICO
--- NOTE | 2020-02-25 14:06 | PQF ---
CLINICAL DOCUMENTATION CLARIFICATION FORM: Dear Dr. Víctor CHANDLER Date: 02/25/20 1300 Please exercise your independent, professional judgment in responding to the clarification form. Clinical indicators are provided on the bottom of this form for your review. Please check appropriate box(es): X[ ] Acute Respiratory Failure: [ X ] with Hypoxia [ ] with Hypercapnia [ ] Acute On Chronic Respiratory Failure: [ ] with Hypoxia [ ] with Hypercapnia [ ] Acute Respiratory Failure due to: (etiology) [ ] Chronic Respiratory Failure only [ ] with Hypoxia [ ] with Hypercapnia [ ] Other diagnosis [ ] Unable to determine In addition, please specify: Present on Admission (POA): [ X ] Yes [ ] No [ ] Unable to determine For continuity of documentation, please document condition throughout progress notes and discharge summary. Thank You. To be completed by CDI/Coding staff for physician review: CLINICAL INDICATORS - SIGNS / SYMPTOMS / LABS / RESULTS AND LOCATION IN MR 02/21 ED REPORT: PT SOB AT [facility] PARKING LOT, RESPIRATIONS 28, PULSE 120, PATIENT SITTING UPRIGHT IN BED IN TRIPOD POSITION WITH ARMS ON SIDE RAILS. PT WAS SOMEWHAT DYSPNEIC WHEN HE ARRIVED. HE REPORTS COUGH, REPORTS SHORTNESS OF BREATH, REPORTS WHEEZING. FINAL DX: COPD EXACERBATION, HYPONATREMIA, POSSIBLE LUNG MASS/METS, SHORTNESS OF BREATH 02/20 H&P ( ATERNO) HAS SOME CHRONIC MILD SOB BUT THIS WAS SIGNIFICANTLY WORSE THAN NORMAL. HE HAS A HX OF COPD, UNSURE IF HE HAS BEEN WHEEZING, HAS REQUIRED SUPPLEMENTAL O2 IN ED OFF AND ( NOT ON O2 CHRONICALLY). RISK FACTOR / RESULTS AND LOCATION IN MR DX : PNEUMONIA, HX THROAT CANCER PN (GERALDINE) 02/22; HX COPD (H&P/ATERNO) 02/20 TREATMENTS / RESULTS AND LOCATION IN MR SUPPLEMENTAL OXYGEN (02/21 PRESENT) Acute Respiratory Failure: ABG pH < 7.35 or > 7.45; Decreased oxygen saturation (<90% room air or < 95% on oxygen); PCO2 > 50 mm Hg; PO2 < 60 mm Hg; Labored or rapid respirations ARDS: Dx Criteria [[place] ARDS]: Respiratory symptoms within one week of a known clinical insult (e.g. shock, infection, surgery, trauma) Bilateral opacities in CXR/Chest CT not due to CHF or fluid THANK YOU! CDS Signature: Lucinda Garcia RN Phone #: [phone] Date: 02/25/2020 This is a permanent part of the Medical Record [facility]
[2020-02-25 14:11] LABS: #Lymphocytes 0.3 thou/uL (1.20-3.40); #Neutrophils 3.8 thou/uL (1.40-6.50); %Basophils 0.3 % (0.0-1.0); %Eosinophils 0.2 % (0.0-10.0); %Lymphocytes 7.1 % (21.0-51.0); %Monocytes 0.7 % (0.0-10.0); %Neutrophils 91.8 % (42.0-75.0); Hemoglobin 8.5 g/dL (14.0-18.0); Mean Corpuscular HGB CONC 34.1 g/dL (32.0-36.0); Mean Corpuscular Hemoglobin 33.4 pg (27.0-31.0); Mean Corpuscular Volume 97.8 fL (78.0-98.0); Mean Platelet Volume 7.7 fL (7.4-10.4); Platelet Count 139 thou/uL (130-400); RBC Distribution Width 14.8 % (11.5-14.5); Red Blood Cell (RBC) Count 2.55 mill/uL (4.70-6.10); White Blood Cell (WBC) Count 4.2 thou/uL (4.8-10.8)
[2020-02-25 14:31] LABS: Anion Gap 11 mmol/L (10-20); BUN (Urea Nitrogen) 19 mg/dL (8.4-25.7); Calc. Creatinine Clearance 61 mL/min (70-130); Calcium 8.7 mg/dL (7.8-10.44); Carbon Dioxide 27 mmol/L (23-31); Chloride 98 mmol/L (98-107); Estimated GFR-MDRD 77; Glucose 92 mg/dL (80-115); Potassium 3.9 mmol/L (3.5-5.1); Sodium 132 mmol/L (136-145)
--- NOTE | 2020-02-25 14:51 | PDOC.MOPN ---
Interval History: feels weak today. Denies SOB - Vital Signs Vital Signs: Vital Signs (12 hours) Temp Pulse Resp BP BP Pulse Ox 02/25/20 14:41 66 20 88 L 02/25/20 12:51 62 17 95/52 L 02/25/20 11:05 65 16 95 02/25/20 10:35 94 L 02/25/20 10:32 106/55 L 02/25/20 09:43 74 98/57 L 02/25/20 09:41 98/57 L 02/25/20 08:10 98/57 L 02/25/20 07:55 98.3 F 66 18 95/53 L 94 L 02/25/20 07:38 19 02/25/20 07:32 64 16 91 L 02/25/20 07:31 91 L 02/25/20 07:30 69 20 91 L 02/25/20 07:18 94 L Weight Admit Weight 130 lb 8 oz Weight 130 lb 8 oz - Physical Exam General: Alert HEENT: Atraumatic, PERRLA, EOMI, Mucous membr. moist/pink Lungs: Clear to auscultation Cardiovascular: Regular rate Abdomen: Normal bowel sounds Extremities: No clubbing, No cyanosis, No edema, Normal pulses, No tenderness/swelling Neurological: Normal speech - Labs Result Diagrams: 02/25/20 14:01 02/25/20 14:01 Lab results: Laboratory Results - last 24 hr 02/25/20 14:01: Sodium 132 L, Potassium 3.9, Chloride 98, Carbon Dioxide 27, Anion Gap 11, BUN 19, Creatinine 0.97, Estimated GFR (MDRD) 77, Glucose 92, Calcium 8.7 02/25/20 14:01: WBC 4.2 L, RBC 2.55 L, Hgb 8.5 L, Hct 25.0 L, MCV 97.8, MCH 33.4 H, MCHC 34.1, RDW 14.8 H, Plt Count 139, MPV 7.7, Neutrophils % 91.8 H, Lymphocytes % 7.1 L, Monocytes % 0.7, Eosinophils % 0.2, Basophils % 0.3, Neutrophils # 3.8, Lymphocytes # 0.3 L, Monocytes # 0.0 L, Eosinophils # 0.0, Basophils # 0.0 02/25/20 06:05: Magnesium 1.7 Status: lab reviewed by me A/P - Problem (1) Thrombocytopenia Current Visit: No Code(s): D69.6 - THROMBOCYTOPENIA, UNSPECIFIED Status: Acute (2) Anemia, chronic disease Current Visit: No Code(s): D63.8 - ANEMIA IN OTHER CHRONIC DISEASES CLASSIFIED ELSEWHERE Status: Chronic (3) Malignant tumor of pyriform sinus Current Visit: No Code(s): C12 - MALIGNANT NEOPLASM OF PYRIFORM SINUS Status: Chronic - Plan Plan: 1. continue steroids, abx 2. poss blood transfusion 3. encourage diet 4. home when improved.
[2020-02-25] MEDS ORDERED: Sodium Chloride 0.9% 1,000 ML IV SCH (15:15)
--- NOTE | 2020-02-25 16:07 | PQF ---
CLINICAL DOCUMENTATION CLARIFICATION FORM: Dear Dr. Remi CHANDLER Date: 02/25/20 1600 Please exercise your independent, professional judgment in responding to the clarification form. Clinical indicators are provided on the bottom of this form for your review. Please check appropriate box(es): [ ] Protein Calorie Malnutrition: [ ] Mild [ ] Moderate [ x ] Severe [ ] Other Malnutrition (please specify) [ ] Underweight without malnutrition [ ] Cachexia [ ] Other diagnosis [ ] Unable to determine In addition, please specify: Present on Admission (POA): [ x] Yes [ ] No [ ] Unable to determine For continuity of documentation, please document condition throughout progress notes and discharge summary. Thank You. To be completed by CDI/Coding staff for physician review: CLINICAL INDICATORS - SIGNS / SYMPTOMS / LABS / RESULTS AND LOCATION IN 02/21 RD ASSESSMENT: BMI 19.4; NUTRITION DIAGNOSIS MALNUTRITION RELATED TO COPD, ONCOLOGY EVIDENCED BY SEVERE TEMPORALIS AND MODERATE BUCCAL FAT PAD WASTING SUGGESTIVE OF SEVERE MALNUTRITION IN THE CONTEXT OF ILLNESS; -18.4% WEIGHT LOSS X 1 YEAR RISK FACTORS / RESULTS AND LOCATION IN MR HX OF PEG TUBE, THROAT CANCER, CHEMOTHERAPY ( /02/21) TREATMENT / RESULTS AND LOCATION IN MR DIETARY CONSULT 02/21 RECOMMEND ENSURE ENLIVE BID Moderate Malnutrition (in acute illness) Energy Intake: <75% of estimated energy requirement for > 7 days Weight Loss: 1-2%/1 week; 5%/ 1 month; 7.5%/3 months Other: mild body fat loss; mild muscle mass loss; mild fluid accumulation; Severe Malnutrition (in acute illness) Energy Intake: = 50% of estimated energy requirement for = 5 days Weight Loss: >2%/1 week; >5%/1 month; >7.5%/3 months Other: moderate body fat loss; moderate muscle mass loss; moderate- severe fluid accumulation; 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 CDS Signature: BRIGITTE LENTZ RN Phone #: [phone] Date: 02/25/20 This is a permanent part of the Medical Record [facility]
--- NOTE | 2020-02-25 16:40 | PDOC.HOSPP ---
- Subjective Encounter Date: 02/24/20 Encounter Time: 11:15 Subjective: pt up in bed states he feels well today. - Objective Vital Signs & Weight: Vital Signs (12 hours) Temp Pulse Resp BP BP BP Pulse Ox 02/25/20 16:34 76 109/53 L 02/25/20 16:14 64 87/53 L 02/25/20 15:53 63 87/57 L 02/25/20 15:05 64 89/51 L 02/25/20 15:01 62 75/45 L 02/25/20 15:00 61 79/48 L 02/25/20 14:41 66 20 88 L 02/25/20 12:51 62 17 95/52 L 02/25/20 11:05 65 16 95 02/25/20 10:35 94 L 02/25/20 10:32 106/55 L 02/25/20 09:43 74 98/57 L 02/25/20 09:41 98/57 L 02/25/20 08:10 98/57 L 02/25/20 07:55 98.3 F 66 18 95/53 L 94 L 02/25/20 07:38 19 02/25/20 07:32 64 16 91 L 02/25/20 07:31 91 L 02/25/20 07:30 69 20 91 L 02/25/20 07:18 94 L Weight Admit Weight 130 lb 8 oz Weight 130 lb 8 oz I&O: 02/24/20 02/25/20 02/26/20 06:59 06:59 06:59 Intake Total 940 1840 Output Total 1050 Balance -110 1840 Result Diagrams: 02/25/20 14:01 02/25/20 14:01 Hospitalist ROS - Review of Systems Cardiovascular: denies: chest pain, palpitations, orthopnea, paroxysmal noc. dyspnea, edema, light headedness, other Gastrointestinal: denies: nausea, vomiting, abdominal pain, diarrhea, constipation, melena, hematochezia, other Genitourinary: denies: dysuria, frequency, incontinence, hematuria, retention, other - Medication Medications: Active Medications Generic Name Dose Route Start Last Admin Trade Name Freq PRN Reason Stop Dose Admin Acetaminophen 650 mg 02/21/20 21:48 02/24/20 20:21 Acetaminophen 325 Mg Tab PO 650 mg Q4H PRN Administration Headache/Fever/Mild Pain (1-3) Hydrocodone Bitart/Acetaminophen 1 tab 02/21/20 21:48 02/22/20 09:19 Hydrocodone/Acetaminophen 5/325 Mg Tablet PO 1 tab Q4H PRN Administration Moderate Pain (4-6) Acetylcysteine 600 mg 02/24/20 13:00 02/25/20 11:06 Acetylcysteine 10% 100 Mg/Ml 30 Ml Vial INH 600 mg [id number] LENIN Administration Albuterol/Ipratropium 3 ml 02/22/20 07:00 02/25/20 14:41 Ipratropium/Albuterol Sulfate 3 Ml Neb NEB 3 ml [id number] LENIN Administration Atorvastatin Calcium 80 mg 02/22/20 09:00 02/25/20 09:42 Atorvastatin Calcium 40 Mg Tab PO 80 mg DAILY LENIN Administration Clopidogrel Bisulfate 75 mg 02/22/20 09:00 02/25/20 09:42 Clopidogrel Bisulfate 75 Mg Tab PO Not Given DAILY LENIN Al Hydroxide/Mg Hydroxide 60 0 ml 02/22/20 03:25 02/25/20 08:01 ml/ Lidocaine HCl 30 ml/ SSW 10 ml Diphenhydramine HCl 75 mg PRN PRN Administration Mouth Irritation Enoxaparin Sodium 40 mg 02/22/20 21:00 02/24/20 20:16 Enoxaparin Sodium 40 Mg/0.4 Ml Syringe SC 40 mg 2100 LENIN Administration Levofloxacin 750 mg 02/25/20 06:00 02/25/20 06:12 Levofloxacin 750 Mg Tab PO 750 mg 0600 LENIN Administration Lisinopril 2.5 mg 02/22/20 09:00 02/25/20 09:43 Lisinopril 2.5 Mg Tab PO Not Given DAILY LENIN Metronidazole 500 mg 02/22/20 09:00 02/25/20 14:32 Metronidazole 500 Mg Tab PO 500 mg TID LENIN Administration Mometasone Furoate/Formoterol Fumar 2 puff 02/22/20 06:30 02/25/20 07:32 Mometasone 200 Mcg/Formoterol 5 Mcg 120 Puff Inhaler INH 2 puff BID-RT LENIN Administration Nicotine 14 mg 02/22/20 19:00 02/24/20 20:16 Nicotine 14 Mg Patch TD 14 mg Q24HR LENIN Administration Pantoprazole Sodium 40 mg 02/25/20 09:00 02/25/20 09:44 Pantoprazole 40 Mg Tab PO 40 mg DAILY LENIN Administration Polyethylene Glycol 17 gm 02/22/20 09:00 02/25/20 09:41 Polyethylene Glycol 3350 17 Gm Packet PO Not Given DAILY LENIN Prednisone 40 mg 02/25/20 08:00 02/25/20 08:10 Prednisone 20 Mg Tab PO 40 mg QAM-WM LENIN Administration Sodium Chloride 10 ml 02/24/20 09:00 02/25/20 09:46 Flush - Normal Saline 10 Ml Syringe IVF 10 ml Q12HR LENIN Administration Tramadol HCl 50 mg 02/21/20 22:25 02/22/20 01:49 Tramadol Hcl 50 Mg Tab PO 50 mg Q6H PRN Administration Moderate Pain (4-6) - Exam Heart: negative: RRR, no murmur, no gallops, no rubs, normal peripheral pulses, irregular, diminshed peripheral pulses, murmur present, II/IV, III/IV Respiratory: negative: CTAB, no wheezes, no rales, no ronchi, normal chest expansion, no tachypnea, normal percussion, rales, rhonchi, tachypneic, wheezes Gastrointestinal: negative: soft, non-tender, non-distended, normal bowel sounds, no palpable masses, no hepatomegaly, no splenomegaly, no bruit, no guarding, no rigidity, tender to palpation, distended, diminished bowl sounds, voluntary guarding Extremities: negative: no cyanosis, no clubbing, no edema, 1+ LE edema, 2+ LE edema, clubbing Hosp A/P - Plan Hosp A/P (1) AICD (automatic cardioverter/defibrillator) present Code(s): Z95.810 - PRESENCE OF AUTOMATIC (IMPLANTABLE) CARDIAC DEFIBRILLATOR Status: Chronic (2) Anemia, chronic disease Code(s): D63.8 - ANEMIA IN OTHER CHRONIC DISEASES CLASSIFIED ELSEWHERE Status: Chronic (3) CAD (coronary artery disease) Code(s): I25.10 - ATHSCL HEART DISEASE OF [place] CORONARY ARTERY W/O ANG PCTRS Status: Chronic (4) CHF (congestive heart failure) Code(s): I50.9 - HEART FAILURE, UNSPECIFIED Status: Chronic (5) COPD exacerbation Code(s): J44.1 - CHRONIC OBSTRUCTIVE PULMONARY DISEASE W (ACUTE) EXACERBATION Status: Chronic (6) Malignant tumor of pyriform sinus Code(s): C12 - MALIGNANT NEOPLASM OF PYRIFORM SINUS Status: Chronic (7) PAD (peripheral artery disease) Code(s): I73.9 - PERIPHERAL VASCULAR DISEASE, UNSPECIFIED Status: Chronic 8) Acute hypoxic resp failue most likely due to combination of copd exab vs pneumonia community vs lymphagitis spread of cancer. - Plan 70 year old male with PMH throat cancer on chemotherapy, CAD/[place]/stents, gout, COPD who presents to ED for shortness of breath worsening today. # bilateral pneumonia vs lymphangitis spread of cancer - transferred to oncology floor - azithromycin, rocephin, flagyl - speech consult, aspiration precautions - covid negative # history of throat cancer - last chemotherapy session 02/20 - Dr. Kohler consulted # anemia - stable - hgb 8.8, this is similar to previous values, continue dvt ppx and monitor for bleeding # hyponatremia - - on admit Na 124 - recheck this morning 128 # ALISTAIR - perhaps prerenal, give 1 bag IVF and recheck BMP, also bladder scan # elevated troponin - continue to trend # history of systolic CHF - stable compensated # CAD w/ history of [place] - EF 30-35%, has AICD/pacemaker - resume home meds - suspect demand ischemia, no chest pain, defer further cardiac workup in setting of pneumonia # history of tobacco abuse dvt ppx. 02/22 will get echo he has significant cad with stents. 02/23 will switch his iv to oral. will watch him overnight if ok may go home in am.
--- NOTE | 2020-02-25 16:43 | PDOC.HOSPP ---
- Subjective Encounter Date: 02/25/20 Encounter Time: 12:30 Subjective: pt up in bed feels unwell today - Objective Vital Signs & Weight: Vital Signs (12 hours) Temp Pulse Resp BP BP BP Pulse Ox 02/25/20 16:34 76 109/53 L 02/25/20 16:14 64 87/53 L 02/25/20 15:53 63 87/57 L 02/25/20 15:05 64 89/51 L 02/25/20 15:01 62 75/45 L 02/25/20 15:00 61 79/48 L 02/25/20 14:41 66 20 88 L 02/25/20 12:51 62 17 95/52 L 02/25/20 11:05 65 16 95 02/25/20 10:35 94 L 02/25/20 10:32 106/55 L 02/25/20 09:43 74 98/57 L 02/25/20 09:41 98/57 L 02/25/20 08:10 98/57 L 02/25/20 07:55 98.3 F 66 18 95/53 L 94 L 02/25/20 07:38 19 02/25/20 07:32 64 16 91 L 02/25/20 07:31 91 L 02/25/20 07:30 69 20 91 L 02/25/20 07:18 94 L Weight Admit Weight 130 lb 8 oz Weight 130 lb 8 oz I&O: 02/24/20 02/25/20 02/26/20 06:59 06:59 06:59 Intake Total 940 1840 Output Total 1050 Balance -110 1840 Result Diagrams: 02/25/20 14:01 02/25/20 14:01 Hospitalist ROS - Review of Systems Cardiovascular: denies: chest pain, palpitations, orthopnea, paroxysmal noc. dyspnea, edema, light headedness, other Gastrointestinal: denies: nausea, vomiting, abdominal pain, diarrhea, constipation, melena, hematochezia, other Genitourinary: denies: dysuria, frequency, incontinence, hematuria, retention, other - Medication Medications: Active Medications Generic Name Dose Route Start Last Admin Trade Name Freq PRN Reason Stop Dose Admin Acetaminophen 650 mg 02/21/20 21:48 02/24/20 20:21 Acetaminophen 325 Mg Tab PO 650 mg Q4H PRN Administration Headache/Fever/Mild Pain (1-3) Hydrocodone Bitart/Acetaminophen 1 tab 02/21/20 21:48 02/22/20 09:19 Hydrocodone/Acetaminophen 5/325 Mg Tablet PO 1 tab Q4H PRN Administration Moderate Pain (4-6) Acetylcysteine 600 mg 02/24/20 13:00 02/25/20 11:06 Acetylcysteine 10% 100 Mg/Ml 30 Ml Vial INH 600 mg [id number] LENIN Administration Albuterol/Ipratropium 3 ml 02/22/20 07:00 02/25/20 14:41 Ipratropium/Albuterol Sulfate 3 Ml Neb NEB 3 ml [id number] LENIN Administration Atorvastatin Calcium 80 mg 02/22/20 09:00 02/25/20 09:42 Atorvastatin Calcium 40 Mg Tab PO 80 mg DAILY LENIN Administration Clopidogrel Bisulfate 75 mg 02/22/20 09:00 02/25/20 09:42 Clopidogrel Bisulfate 75 Mg Tab PO Not Given DAILY LENIN Al Hydroxide/Mg Hydroxide 60 0 ml 02/22/20 03:25 02/25/20 08:01 ml/ Lidocaine HCl 30 ml/ SSW 10 ml Diphenhydramine HCl 75 mg PRN PRN Administration Mouth Irritation Enoxaparin Sodium 40 mg 02/22/20 21:00 02/24/20 20:16 Enoxaparin Sodium 40 Mg/0.4 Ml Syringe SC 40 mg 2100 LENIN Administration Levofloxacin 750 mg 02/25/20 06:00 02/25/20 06:12 Levofloxacin 750 Mg Tab PO 750 mg 0600 LENIN Administration Lisinopril 2.5 mg 02/22/20 09:00 02/25/20 09:43 Lisinopril 2.5 Mg Tab PO Not Given DAILY [facility] Metronidazole 500 mg 02/22/20 09:00 02/25/20 14:32 Metronidazole 500 Mg Tab PO 500 mg TID LENIN Administration Mometasone Furoate/Formoterol Fumar 2 puff 02/22/20 06:30 02/25/20 07:32 Mometasone 200 Mcg/Formoterol 5 Mcg 120 Puff Inhaler INH 2 puff BID-RT LENIN Administration Nicotine 14 mg 02/22/20 19:00 02/24/20 20:16 Nicotine 14 Mg Patch TD 14 mg Q24HR LENIN Administration Pantoprazole Sodium 40 mg 02/25/20 09:00 02/25/20 09:44 Pantoprazole 40 Mg Tab PO 40 mg DAILY LENIN Administration Polyethylene Glycol 17 gm 02/22/20 09:00 02/25/20 09:41 Polyethylene Glycol 3350 17 Gm Packet PO Not Given DAILY LENIN Prednisone 40 mg 02/25/20 08:00 02/25/20 08:10 Prednisone 20 Mg Tab PO 40 mg QAM-WM LENIN Administration Sodium Chloride 10 ml 02/24/20 09:00 02/25/20 09:46 Flush - Normal Saline 10 Ml Syringe IVF 10 ml Q12HR LENIN Administration Tramadol HCl 50 mg 02/21/20 22:25 02/22/20 01:49 Tramadol Hcl 50 Mg Tab PO 50 mg Q6H PRN Administration Moderate Pain (4-6) - Exam Heart: negative: RRR, no murmur, no gallops, no rubs, normal peripheral pulses, irregular, diminshed peripheral pulses, murmur present, II/IV, III/IV Respiratory: negative: CTAB, no wheezes, no rales, no ronchi, normal chest expansion, no tachypnea, normal percussion, rales, rhonchi, tachypneic, wheezes Gastrointestinal: negative: soft, non-tender, non-distended, normal bowel sounds, no palpable masses, no hepatomegaly, no splenomegaly, no bruit, no guar ding, no rigidity, tender to palpation, distended, diminished bowl sounds, voluntary guarding Extremities: negative: no cyanosis, no clubbing, no edema, 1+ LE edema, 2+ LE edema, clubbing Hosp A/P - Plan Hosp A/P (1) AICD (automatic cardioverter/defibrillator) present Code(s): Z95.810 - PRESENCE OF AUTOMATIC (IMPLANTABLE) CARDIAC DEFIBRILLATOR Status: Chronic (2) Anemia, chronic disease Code(s): D63.8 - ANEMIA IN OTHER CHRONIC DISEASES CLASSIFIED ELSEWHERE Status: Chronic (3) CAD (coronary artery disease) Code(s): I25.10 - ATHSCL HEART DISEASE OF [place] CORONARY ARTERY W/O ANG PCTRS Status: Chronic (4) CHF (congestive heart failure) Code(s): I50.9 - HEART FAILURE, UNSPECIFIED Status: Chronic (5) COPD exacerbation Code(s): J44.1 - CHRONIC OBSTRUCTIVE PULMONARY DISEASE W (ACUTE) EXACERBATION Status: Chronic (6) Malignant tumor of pyriform sinus Code(s): C12 - MALIGNANT NEOPLASM OF PYRIFORM SINUS Status: Chronic (7) PAD (peripheral artery disease) Code(s): I73.9 - PERIPHERAL VASCULAR DISEASE, UNSPECIFIED Status: Chronic 8) Acute hypoxic resp failue most likely due to combination of copd exab vs pn [place] community vs lymphagitis spread of cancer. - Plan 70 year old male with PMH throat cancer on chemotherapy, CAD/[place]/stents, gout, COPD who presents to ED for shortness of breath worsening today. # bilateral pneumonia vs lymphangitis spread of cancer - transferred to oncology floor - azithromycin, rocephin, flagyl - speech consult, aspiration precautions - covid negative # history of throat cancer - last chemotherapy session 02/20 - Dr. Kohler consulted # anemia - stable - hgb 8.8, this is similar to previous values, continue dvt ppx and monitor for bleeding # hyponatremia - - on admit Na 124 - recheck this morning 128 # ALISTAIR - perhaps prerenal, give 1 bag IVF and recheck BMP, also bladder scan # elevated troponin - continue to trend # history of systolic CHF - stable compensated # CAD w/ history of [place] - EF 30-35%, has AICD/pacemaker - resume home meds - suspect demand ischemia, no chest pain, defer further cardiac workup in setti ng of pneumonia # history of tobacco abuse dvt ppx. 02/22 will get echo he has significant cad with stents. 02/23 will switch his iv to oral. will watch him overnight if ok may go home in am. 02/24 will check cbc pt feels unwell today and low bp. will give him ns bolus. will get speech to evaluate since he is not drinking much water due to it being thickened.
[2020-02-25] MEDS ORDERED: Albumin 25% 25 GM/100 ML BOT IVPB SCH (17:00)
[2020-02-25] MEDS: Sodium Chloride 0.9% 1,000 ML IV SCH (17:05)
[2020-02-25] MEDS: Nicotine 14 MG PATCH TD SCH (18:33)
[2020-02-25] MEDS: Enoxaparin Sodium 40 MG/0.4 ML SYRINGE SC SCH (20:07)
[2020-02-25] MEDS: Carvedilol 3.125 MG TAB PO SCH (20:07)
[2020-02-26] MEDS: Acetylcysteine 10% 100 MG/ML 30 ml Vial INH SCH ×4 (00:46→18:23)
[2020-02-26] MEDS: Sodium Chloride 0.9% 1,000 ML IV SCH (06:03)
[2020-02-26] MEDS: Aluminum & Magnesium Hydroxide 60 ML, Lidocaine 2% Viscous Solution 30 ML, diphenhydrAM... SSW PRN (06:06)
[2020-02-26] MEDS ORDERED: Magnesium 2 GM/50 ML 2 GM in Premix Bag 1 BAG IVPB SCH (07:15)
[2020-02-26] MEDS: Mometasone 200 MCG/Formoterol 5 MCG 120 PUFF INHALER INH SCH ×3 (07:46→22:40)
[2020-02-26] MEDS: predniSONE 20 MG TAB PO SCH ×3 (07:59→20:32)
[2020-02-26] MEDS: Atorvastatin Calcium 40 MG TAB PO SCH (08:00)
[2020-02-26] MEDS: Lisinopril 2.5 MG TAB PO SCH (08:01)
[2020-02-26] MEDS: Carvedilol 3.125 MG TAB PO SCH ×2 (08:01→20:30)
[2020-02-26] MEDS: Acetaminophen 325 MG TAB PO PRN (08:02)
[2020-02-26] MEDS: metroNIDAZOLE 500 MG TAB PO SCH ×3 (08:02→20:32)
[2020-02-26] MEDS: Clopidogrel Bisulfate 75 MG TAB PO SCH (08:03)
[2020-02-26] MEDS: Polyethylene Glycol 3350 17 GM Packet PO SCH (08:03)
--- NOTE | 2020-02-26 16:03 | PDOC.MOPN ---
Interval History: continued weakness per nurse, BP low - Vital Signs Vital Signs: Vital Signs (12 hours) Temp Pulse Pulse Resp BP BP BP 02/26/20 15:56 98.1 F 65 16 100/53 L 02/26/20 15:17 64 17 02/26/20 14:04 98.0 F 60 16 96/55 L 02/26/20 11:14 64 18 02/26/20 11:04 98.3 F 60 16 90/55 L 02/26/20 10:45 98.4 F 62 16 83/52 L 02/26/20 08:01 65 96/52 L 02/26/20 08:00 98.0 F 64 18 98/52 L 02/26/20 07:49 02/26/20 07:48 64 20 02/26/20 07:46 70 16 Pulse Ox 02/26/20 15:56 95 02/26/20 15:17 02/26/20 14:04 95 02/26/20 11:14 02/26/20 11:04 95 02/26/20 10:45 95 02/26/20 08:01 02/26/20 08:00 94 L 02/26/20 07:49 92 L 02/26/20 07:48 92 L 02/26/20 07:46 92 L Weight Admit Weight 130 lb 8 oz Weight 130 lb 8 oz - Physical Exam General: Alert HEENT: Atraumatic Lungs: Clear to auscultation, Normal air movement Cardiovascular: Regular rate, Normal S1, Normal S2, No murmurs, Gallops, Rubs Abdomen: Normal bowel sounds, Soft, No tenderness, No hepatospenomegaly, No masses Neurological: Normal speech - Labs Result Diagrams: 02/25/20 14:01 02/25/20 14:01 Lab results: Laboratory Results - last 24 hr 02/26/20 05:48: Magnesium 1.6 02/25/20 14:01: Blood Type B NEGATIVE, Antibody Screen NEGATIVE, Crossmatch See Detail Status: lab reviewed by me A/P - Problem (1) Thrombocytopenia Current Visit: No Code(s): D69.6 - THROMBOCYTOPENIA, UNSPECIFIED Status: Acute (2) Anemia, chronic disease Current Visit: No Code(s): D63.8 - ANEMIA IN OTHER CHRONIC DISEASES CLASSIFIED ELSEWHERE Status: Chronic (3) Malignant tumor of pyriform sinus Current Visit: No Code(s): C12 - MALIGNANT NEOPLASM OF PYRIFORM SINUS Status: Chronic - Plan Plan: Continue IV hydration, steroids home when bp improves.
--- NOTE | 2020-02-26 16:26 | PDOC.HOSPP ---
- Subjective Encounter Date: 02/26/20 Encounter Time: 12:30 Subjective: pt up in bed feels weak all over - Objective Vital Signs & Weight: Vital Signs (12 hours) Temp Pulse Pulse Resp BP BP BP 02/26/20 15:56 98.1 F 65 16 100/53 L 02/26/20 15:17 64 17 02/26/20 14:04 98.0 F 60 16 96/55 L 02/26/20 11:14 64 18 02/26/20 11:04 98.3 F 60 16 90/55 L 02/26/20 10:45 98.4 F 62 16 83/52 L 02/26/20 08:01 65 96/52 L 02/26/20 08:00 98.0 F 64 18 98/52 L 02/26/20 07:49 02/26/20 07:48 64 20 02/26/20 07:46 70 16 Pulse Ox 02/26/20 15:56 95 02/26/20 15:17 02/26/20 14:04 95 02/26/20 11:14 02/26/20 11:04 95 02/26/20 10:45 95 02/26/20 08:01 02/26/20 08:00 94 L 02/26/20 07:49 92 L 02/26/20 07:48 92 L 02/26/20 07:46 92 L Weight Admit Weight 130 lb 8 oz Weight 130 lb 8 oz I&O: 02/25/20 02/26/20 02/27/20 06:59 06:59 06:59 Intake Total 1840 3370 350 Output Total 600 Balance 1840 2770 350 Result Diagrams: 02/25/20 14:01 02/25/20 14:01 Hospitalist ROS - Review of Systems Cardiovascular: denies: chest pain, palpitations, orthopnea, paroxysmal noc. dyspnea, edema, light headedness, other Gastrointestinal: denies: nausea, vomiting, abdominal pain, diarrhea, constipation, melena, hematochezia, other Genitourinary: denies: dysuria, frequency, incontinence, hematuria, retention, other - Medication Medications: Active Medications Generic Name Dose Route Start Last Admin Trade Name Freq PRN Reason Stop Dose Admin Acetaminophen 650 mg 02/21/20 21:48 02/26/20 08:02 Acetaminophen 325 Mg Tab PO 650 mg Q4H PRN Administration Headache/Fever/Mild Pain (1-3) Hydrocodone Bitart/Acetaminophen 1 tab 02/21/20 21:48 02/22/20 09:19 Hydrocodone/Acetaminophen 5/325 Mg Tablet PO 1 tab Q4H PRN Administration Moderate Pain (4-6) Acetylcysteine 600 mg 02/24/20 13:00 02/26/20 15:20 Acetylcysteine 10% 100 Mg/Ml 30 Ml Vial INH Not Given [id number] LENIN Albuterol/Ipratropium 3 ml 02/22/20 07:00 02/26/20 15:17 Ipratropium/Albuterol Sulfate 3 Ml Neb NEB 3 ml [id number] LENIN Administration Atorvastatin Calcium 80 mg 02/22/20 09:00 02/26/20 08:00 Atorvastatin Calcium 40 Mg Tab PO 80 mg DAILY LENIN Administration Carvedilol 3.125 mg 02/25/20 21:00 02/26/20 08:01 Carvedilol 3.125 Mg Tab PO Not Given BID LENIN Clopidogrel Bisulfate 75 mg 02/22/20 09:00 02/26/20 08:03 Clopidogrel Bisulfate 75 Mg Tab PO Not Given DAILY [facility] Al Hydroxide/Mg Hydroxide 60 0 ml 02/22/20 03:25 02/26/20 06:06 ml/ Lidocaine HCl 30 ml/ SSW 1 ml Diphenhydramine HCl 75 mg PRN PRN Administration Mouth Irritation Enoxaparin Sodium 40 mg 02/22/20 21:00 02/25/20 20:07 Enoxaparin Sodium 40 Mg/0.4 Ml Syringe SC Not Given 2100 [facility] Sodium Chloride 1,000 mls @ 75 mls/hr 02/25/20 16:45 02/26/20 06:03 Normal Saline 0.9% IV 1,000 mls .[id number] LENIN Administration Levofloxacin 750 mg 02/25/20 06:00 02/26/20 06:02 Levofloxacin 750 Mg Tab PO 750 mg 0600 LENIN Administration Lisinopril 2.5 mg 02/22/20 09:00 02/26/20 08:01 Lisinopril 2.5 Mg Tab PO Not Given DAILY LENIN Metronidazole 500 mg 02/22/20 09:00 02/26/20 14:17 Metronidazole 500 Mg Tab PO 500 mg TID LENIN Administration Mometasone Furoate/Formoterol Fumar 2 puff 02/22/20 06:30 02/26/20 07:46 Mometasone 200 Mcg/Formoterol 5 Mcg 120 Puff Inhaler INH 2 puff BID-RT LENIN Administration Nicotine 14 mg 02/22/20 19:00 02/25/20 18:33 Nicotine 14 Mg Patch TD 14 mg Q24HR LENIN Administration Pantoprazole Sodium 40 mg 02/25/20 09:00 02/26/20 08:02 Pantoprazole 40 Mg Tab PO 40 mg DAILY LENIN Administration Polyethylene Glycol 17 gm 02/22/20 09:00 02/26/20 08:03 Polyethylene Glycol 3350 17 Gm Packet PO Not Given DAILY LENIN Prednisone 40 mg 02/26/20 09:00 02/26/20 09:26 Prednisone 20 Mg Tab PO Not Given BID LENIN Sodium Chloride 10 ml 02/24/20 09:00 02/26/20 08:03 Flush - Normal Saline 10 Ml Syringe IVF Not Given Q12HR LENIN Sodium Chloride 10 ml 02/24/20 07:30 02/25/20 13:45 Flush - Normal Saline 10 Ml Syringe IVF 10 ml PRN PRN Administration Saline Flush Tramadol HCl 50 mg 02/21/20 22:25 02/22/20 01:49 Tramadol Hcl 50 Mg Tab PO 50 mg Q6H PRN Administration Moderate Pain (4-6) - Exam Heart: negative: RRR, no murmur, no gallops, no rubs, normal peripheral pulses, irregular, diminshed peripheral pulses, murmur present, II/IV, III/IV Respiratory: negative: CTAB, no wheezes, no rales, no ronchi, normal chest expansion, no tachypnea, normal percussion, rales, rhonchi, tachypneic, wheezes Gastrointestinal: negative: soft, non-tender, non-distended, normal bowel sounds, no palpable masses, no hepatomegaly, no splenomegaly, no bruit, no guarding, no rigidity, tender to palpation, distended, diminished bowl sounds, voluntary guarding Extremities: negative: no cyanosis, no clubbing, no edema, 1+ LE edema, 2+ LE edema, clubbing Hosp A/P - Plan Hosp A/P (1) AICD (automatic cardioverter/defibrillator) present Code(s): Z95.810 - PRESENCE OF AUTOMATIC (IMPLANTABLE) CARDIAC DEFIBRILLATOR Status: Chronic (2) Anemia, chronic disease Code(s): D63.8 - ANEMIA IN OTHER CHRONIC DISEASES CLASSIFIED ELSEWHERE Status: Chronic (3) CAD (coronary artery disease) Code(s): I25.10 - ATHSCL HEART DISEASE OF [place] CORONARY ARTERY W/O ANG PCTRS Status: Chronic (4) CHF (congestive heart failure) Code(s): I50.9 - HEART FAILURE, UNSPECIFIED Status: Chronic (5) COPD exacerbation Code(s): J44.1 - CHRONIC OBSTRUCTIVE PULMONARY DISEASE W (ACUTE) EXACERBATION Status: Chronic (6) Malignant tumor of pyriform sinus Code(s): C12 - MALIGNANT NEOPLASM OF PYRIFORM SINUS Status: Chronic (7) PAD (peripheral artery disease) Code(s): I73.9 - PERIPHERAL VASCULAR DISEASE, UNSPECIFIED Status: Chronic 8) Acute hypoxic resp failue most likely due to combination of copd exab vs pneumonia community vs lymphagitis spread of cancer. - Plan 70 year old male with PMH throat cancer on chemotherapy, CAD/LA/stents, gout, COPD who presents to ED for shortness of breath worsening today. # bilateral pneumonia vs lymphangitis spread of cancer - transferred to oncology floor - azithromycin, rocephin, flagyl - speech consult, aspiration precautions - covid negative # history of throat cancer - last chemotherapy session 02/20 - Dr. Kohler consulted # anemia - stable - hgb 8.8, this is similar to previous values, continue dvt ppx and monitor for bleeding # hyponatremia - - on admit Na 124 - recheck this morning 128 # ALISTAIR - perhaps prerenal, give 1 bag IVF and recheck BMP, also bladder scan # elevated troponin - continue to trend # history of systolic CHF - stable compensated # CAD w/ history of LA - EF 30-35%, has AICD/pacemaker - resume home meds - suspect demand ischemia, no chest pain, defer further cardiac workup in setting of pneumonia # history of tobacco abuse dvt ppx. 02/22 will get echo he has significant cad with stents. 02/23 will switch his iv to oral. will watch him overnight if ok may go home in am. 02/24 will check cbc pt feels unwell today and low bp. will give him ns bolus. will get speech to evaluate since he is not drinking much water due to it being thickened. 02/25 will give him one unit of blood. may add a midrodrine to see if it helps his bp. will check cortisol level in am. He has been encouraged to eat more.
[2020-02-26] MEDS: Nicotine 14 MG PATCH TD SCH (18:10)
[2020-02-26] MEDS: Enoxaparin Sodium 40 MG/0.4 ML SYRINGE SC SCH (20:32)
[2020-02-27] MEDS: Acetylcysteine 10% 100 MG/ML 30 ml Vial INH SCH ×4 (00:19→18:57)
[2020-02-27 03:47] LABS: #Lymphocytes 0.3 thou/uL (1.20-3.40); #Monocytes 0.1 thou/uL (0.11-0.59); #Neutrophils 3.4 thou/uL (1.40-6.50); %Eosinophils 0.2 % (0.0-10.0); %Lymphocytes 8.4 % (21.0-51.0); %Monocytes 3.6 % (0.0-10.0); %Neutrophils 87.7 % (42.0-75.0); Hemoglobin 10.2 g/dL (14.0-18.0); Mean Corpuscular Hemoglobin 30.6 pg (27.0-31.0); Mean Corpuscular Volume 92.8 fL (78.0-98.0); Platelet Count 147 thou/uL (130-400); RBC Distribution Width 18.2 % (11.5-14.5); Red Blood Cell (RBC) Count 3.35 mill/uL (4.70-6.10); White Blood Cell (WBC) Count 3.8 thou/uL (4.8-10.8)
[2020-02-27] MEDS ORDERED: Magnesium 2 GM/50 ML 2 GM in Premix Bag 1 BAG IVPB SCH (04:30)
[2020-02-27] MEDS: Mometasone 200 MCG/Formoterol 5 MCG 120 PUFF INHALER INH SCH ×2 (06:55→18:55)
[2020-02-27] MEDS: Aluminum & Magnesium Hydroxide 60 ML, Lidocaine 2% Viscous Solution 30 ML, diphenhydrAM... SSW PRN ×3 (07:59→18:59)
[2020-02-27] MEDS: predniSONE 20 MG TAB PO SCH (08:14)
[2020-02-27] MEDS: metroNIDAZOLE 500 MG TAB PO SCH ×3 (08:14→20:33)
[2020-02-27] MEDS: Midodrine HCl 5 MG TAB PO SCH (08:15)
[2020-02-27] MEDS: Atorvastatin Calcium 40 MG TAB PO SCH (08:15)
[2020-02-27] MEDS: Polyethylene Glycol 3350 17 GM Packet PO SCH (08:16)
[2020-02-27] MEDS: Carvedilol 3.125 MG TAB PO SCH ×2 (08:16→20:31)
[2020-02-27] MEDS: Lisinopril 2.5 MG TAB PO SCH (08:16)
[2020-02-27] MEDS: Clopidogrel Bisulfate 75 MG TAB PO SCH (08:16)
--- NOTE | 2020-02-27 14:34 | PDOC.HOSPP ---
- Subjective Encounter Date: 02/27/20 Encounter Time: 11:15 Subjective: pt up in bed no complains - Objective Vital Signs & Weight: Vital Signs (12 hours) Temp Pulse Resp BP Pulse Ox 02/27/20 11:59 98.3 F 65 18 118/57 L 93 L 02/27/20 10:48 80 14 02/27/20 08:16 68 02/27/20 08:00 98.0 F 61 18 115/58 L 96 02/27/20 06:55 70 14 02/27/20 04:36 64 93/52 L Weight Admit Weight 130 lb 8 oz Weight 130 lb 8 oz I&O: 02/26/20 02/27/20 02/28/20 06:59 06:59 06:59 Intake Total 3370 2565 Output Total 600 2250 Balance 2770 315 Result Diagrams: 02/27/20 03:33 02/25/20 14:01 Hospitalist ROS - Review of Systems Cardiovascular: denies: chest pain, palpitations, orthopnea, paroxysmal noc. dyspnea, edema, light headedness, other Gastrointestinal: denies: nausea, vomiting, abdominal pain, diarrhea, constipation, melena, hematochezia, other Genitourinary: denies: dysuria, frequency, incontinence, hematuria, retention, other - Medication Medications: Active Medications Generic Name Dose Route Start Last Admin Trade Name Freq PRN Reason Stop Dose Admin Acetaminophen 650 mg 02/21/20 21:48 02/26/20 08:02 Acetaminophen 325 Mg Tab PO 650 mg Q4H PRN Administration Headache/Fever/Mild Pain (1-3) Hydrocodone Bitart/Acetaminophen 1 tab 02/21/20 21:48 02/22/20 09:19 Hydrocodone/Acetaminophen 5/325 Mg Tablet PO 1 tab Q4H PRN Administration Moderate Pain (4-6) Acetylcysteine 600 mg 02/24/20 13:00 02/27/20 10:14 Acetylcysteine 10% 100 Mg/Ml 30 Ml Vial INH Not Given [id number] LENIN Albuterol/Ipratropium 3 ml 02/22/20 07:00 02/27/20 10:48 Ipratropium/Albuterol Sulfate 3 Ml Neb NEB 3 ml [id number] LENIN Administration Atorvastatin Calcium 80 mg 02/22/20 09:00 02/27/20 08:15 Atorvastatin Calcium 40 Mg Tab PO 80 mg DAILY LENIN Administration Carvedilol 3.125 mg 02/25/20 21:00 02/27/20 08:16 Carvedilol 3.125 Mg Tab PO Not Given BID LENIN Clopidogrel Bisulfate 75 mg 02/22/20 09:00 02/27/20 08:16 Clopidogrel Bisulfate 75 Mg Tab PO Not Given DAILY [facility] Al Hydroxide/Mg Hydroxide 60 0 ml 02/22/20 03:25 02/27/20 07:59 ml/ Lidocaine HCl 30 ml/ SSW 10 ml Diphenhydramine HCl 75 mg PRN PRN Administration Mouth Irritation Enoxaparin Sodium 40 mg 02/22/20 21:00 02/26/20 20:32 Enoxaparin Sodium 40 Mg/0.4 Ml Syringe SC 40 mg 2100 [facility] Administration Levofloxacin 750 mg 02/25/20 06:00 02/27/20 05:39 Levofloxacin 750 Mg Tab PO 750 mg 0600 LENIN Administration Lisinopril 2.5 mg 02/22/20 09:00 02/27/20 08:16 Lisinopril 2.5 Mg Tab PO Not Given DAILY [facility] Metronidazole 500 mg 02/22/20 09:00 02/27/20 08:14 Metronidazole 500 Mg Tab PO 500 mg TID [facility] Administration Midodrine 2.5 mg 02/27/20 09:00 02/27/20 08:15 Midodrine Hcl 5 Mg Tab PO 2.5 mg DAILY [facility]IN Administration Mometasone Furoate/Formoterol Fumar 2 puff 02/22/20 06:30 02/27/20 06:55 Mometasone 200 Mcg/Formoterol 5 Mcg 120 Puff Inhaler INH 2 puff BID-RT LENIN Administration Nicotine 14 mg 02/22/20 19:00 02/26/20 18:10 Nicotine 14 Mg Patch TD 14 mg Q24HR LENIN Administration Pantoprazole Sodium 40 mg 02/25/20 09:00 02/27/20 08:15 Pantoprazole 40 Mg Tab PO 40 mg DAILY [facility] Administration Polyethylene Glycol 17 gm 02/22/20 09:00 02/27/20 08:16 Polyethylene Glycol 3350 17 Gm Packet PO 17 gm DAILY [facility]ENIN Administration Prednisone 40 mg 02/26/20 09:00 02/27/20 08:14 Prednisone 20 Mg Tab PO 40 mg BID LENIN Administration Sodium Chloride 10 ml 02/24/20 09:00 02/27/20 08:17 Flush - Normal Saline 10 Ml Syringe IVF 10 ml Q12HR LENIN Administration Sodium Chloride 10 ml 02/24/20 07:30 02/27/20 04:31 Flush - Normal Saline 10 Ml Syringe IVF 10 ml PRN PRN Administration Saline Flush Tramadol HCl 50 mg 02/21/20 22:25 02/22/20 01:49 Tramadol Hcl 50 Mg Tab PO 50 mg Q6H PRN Administration Moderate Pain (4-6) - Exam Heart: negative: RRR, no murmur, no gallops, no rubs, normal peripheral pulses, irregular, diminshed peripheral pulses, murmur present, II/IV, III/IV Respiratory: negative: CTAB, no wheezes, no rales, no ronchi, normal chest expansion, no tachypnea, normal percussion, rales, rhonchi, tachypneic, wheezes Gastrointestinal: negative: soft, non-tender, non-distended, normal bowel sounds, no palpable masses, no hepatomegaly, no splenomegaly, no bruit, no guarding, no rigidity, tender to palpation, distended, diminished bowl sounds, voluntary guarding Extremities: negative: no cyanosis, no clubbing, no edema, 1+ LE edema, 2+ LE edema, clubbing Hosp A/P - Plan Hosp A/P (1) AICD (automatic cardioverter/defibrillator) present Code(s): Z95.810 - PRESENCE OF AUTOMATIC (IMPLANTABLE) CARDIAC DEFIBRILLATOR Status: Chronic (2) Anemia, chronic disease Code(s): D63.8 - ANEMIA IN OTHER CHRONIC DISEASES CLASSIFIED ELSEWHERE Status: Chronic (3) CAD (coronary artery disease) Code(s): I25.10 - ATHSCL HEART DISEASE OF [place] CORONARY ARTERY W/O ANG PCTRS Status: Chronic (4) CHF (congestive heart failure) Code(s): I50.9 - HEART FAILURE, UNSPECIFIED Status: Chronic (5) COPD exacerbation Code(s): J44.1 - CHRONIC OBSTRUCTIVE PULMONARY DISEASE W (ACUTE) EXACERBATION Status: Chronic (6) Malignant tumor of pyriform sinus Code(s): C12 - MALIGNANT NEOPLASM OF PYRIFORM SINUS Status: Chronic (7) PAD (peripheral artery disease) Code(s): I73.9 - PERIPHERAL VASCULAR DISEASE, UNSPECIFIED Status: Chronic 8) Acute hypoxic resp failue most likely due to combination of copd exab vs pneumonia community vs lymphagitis spread of cancer. - Plan 70 year old male with PMH throat cancer on chemotherapy, CAD/OR/stents, gout, COPD who presents to ED for shortness of breath worsening today. # bilateral pneumonia vs lymphangitis spread of cancer - transferred to oncology floor - azithromycin, rocephin, flagyl - speech consult, aspiration precautions - covid negative # history of throat cancer - last chemotherapy session 02/20 - Dr. Kohler consulted # anemia - stable - hgb 8.8, this is similar to previous values, continue dvt ppx and monitor for bleeding # hyponatremia - - on admit Na 124 - recheck this morning 128 # ALISTAIR - perhaps prerenal, give 1 bag IVF and recheck BMP, also bladder scan # elevated troponin - continue to trend # history of systolic CHF - stable compensated # CAD w/ history of OR - EF 30-35%, has AICD/pacemaker - resume home meds - suspect demand ischemia, no chest pain, defer further cardiac workup in setting of pneumonia # history of tobacco abuse dvt ppx. 02/22 will get echo he has significant cad with stents. 02/23 will switch his iv to oral. will watch him overnight if ok may go home in am. 02/24 will check cbc pt feels unwell today and low bp. will give him ns bolus. will get speech to evaluate since he is not drinking much water due to it being thickened. 02/25 will give him one unit of blood. may add a midrodrine to see if it helps his bp. will check cortisol level in am. He has been encouraged to eat more. 02/26 pt eating well, his bp has always been low. His hh is stable. possible home radha. cortisol was normal. He felt a bit dizzy today when he got up. PT to work with him. will decrease his steroids to daily.
--- NOTE | 2020-02-27 16:06 | PDOC.MOPN ---
Interval History: eating more, feels stronger - Vital Signs Vital Signs: Vital Signs (12 hours) Temp Pulse Resp BP Pulse Ox 02/27/20 11:59 98.3 F 65 18 118/57 L 93 L 02/27/20 10:48 80 14 02/27/20 08:16 68 02/27/20 08:00 98.0 F 61 18 115/58 L 96 02/27/20 06:55 70 14 02/27/20 04:36 64 93/52 L Weight Admit Weight 130 lb 8 oz Weight 130 lb 8 oz - Physical Exam General: Alert HEENT: Atraumatic, PERRLA, EOMI, Mucous membr. moist/pink Lungs: Clear to auscultation, Normal air movement Cardiovascular: Regular rate, Normal S1, Normal S2, No murmurs, Gallops, Rubs Abdomen: Normal bowel sounds, Soft, No tenderness, No hepatospenomegaly, No masses Neurological: Normal speech - Labs Result Diagrams: 02/27/20 03:33 02/25/20 14:01 Lab results: Laboratory Results - last 24 hr 02/27/20 03:33: WBC 3.8 L, RBC 3.35 L, Hgb 10.2 L, Hct 31.1 L, MCV 92.8, MCH 30.6, MCHC 33.0, RDW 18.2 H, Plt Count 147, MPV 8.0, Neutrophils % 87.7 H, Lymphocytes % 8.4 L, Monocytes % 3.6, Eosinophils % 0.2, Basophils % 0.0, Funmi trophils # 3.4, Lymphocytes # 0.3 L, Monocytes # 0.1 L, Eosinophils # 0.0, Basophils # 0.0 02/27/20 03:33: Cortisol 7.20 02/27/20 03:33: Magnesium 1.7 Status: lab reviewed by me A/P - Problem (1) Thrombocytopenia Current Visit: No Code(s): D69.6 - THROMBOCYTOPENIA, UNSPECIFIED Status: Acute (2) Anemia, chronic disease Current Visit: No Code(s): D63.8 - ANEMIA IN OTHER CHRONIC DISEASES CLASSIFIED ELSEWHERE Status: Chronic (3) Malignant tumor of pyriform sinus Current Visit: No Code(s): C12 - MALIGNANT NEOPLASM OF PYRIFORM SINUS Status: Chronic - Plan Plan: 1. Hold treatment this week 2. restage and follow-up with Dr. Kohler.
[2020-02-27] MEDS: Nicotine 14 MG PATCH TD SCH (19:15)
[2020-02-27] MEDS: Enoxaparin Sodium 40 MG/0.4 ML SYRINGE SC SCH (20:34)
[2020-02-28] MEDS: Acetylcysteine 10% 100 MG/ML 30 ml Vial INH SCH ×3 (00:19→10:33)
[2020-02-28] MEDS ORDERED: Magnesium 2 GM/50 ML 2 GM in Premix Bag 1 BAG IVPB SCH (06:45)
[2020-02-28] MEDS: Mometasone 200 MCG/Formoterol 5 MCG 120 PUFF INHALER INH SCH (07:40)
[2020-02-28 08:37] VITALS: BP 97/66; TEMP 98.2
[2020-02-28] MEDS ORDERED: predniSONE 20 MG TAB PO SCH (09:00)
[2020-02-28] MEDS: Aluminum & Magnesium Hydroxide 60 ML, Lidocaine 2% Viscous Solution 30 ML, diphenhydrAM... SSW PRN (09:49)
[2020-02-28] MEDS: Atorvastatin Calcium 40 MG TAB PO SCH (09:50)
[2020-02-28] MEDS: metroNIDAZOLE 500 MG TAB PO SCH (09:50)
[2020-02-28] MEDS: Midodrine HCl 5 MG TAB PO SCH (09:51)
[2020-02-28] MEDS: Clopidogrel Bisulfate 75 MG TAB PO SCH (09:52)
[2020-02-28] MEDS: Lisinopril 2.5 MG TAB PO SCH (09:52)
[2020-02-28] MEDS: Carvedilol 3.125 MG TAB PO SCH (09:52)
[2020-02-28] MEDS: Polyethylene Glycol 3350 17 GM Packet PO SCH (09:53)
--- NOTE | 2020-02-29 07:39 | DIS ---
DATE OF ADMISSION: 02/21/2020 DATE OF DISCHARGE: 02/28/2020 DISCHARGE DIAGNOSES: As of the following; 1. Acute hypoxic respiratory failure, most likely secondary to pneumonia versus lymphangitic spread. 2. Chronic obstructive pulmonary disease exacerbation. 3. Malignant tumor of the piriform sinus. 4. Anemia. 5. Coronary artery disease. 6. Hypotension, chronic. HOSPITAL COURSE: Patient is 70-year-old male, who initially presented to the hospital with complaints of shortness of breath. He at that time underwent a CTA which did not indicate any pulmonary embolism. However, the CTA did indicate patient having scattered pulmonary nodules on the right, some of which are larger on the previous exam and also progression of the reticulonodular densities within both lung bases and peripheral focal areas of consolidation. Most consistent possible infectious pneumonitis or lymphangitic spread of cancer. Patient at this time was started on IV antibiotics and steroids and breathing treatments. He continued to improve through the hospital stay. I did order an echocardiogram. His EF was 25% to 30%, which is not new. He does have systolic heart failure which is compensated. Patient also was found to have transient hypotension. His blood pressure according to previous records have always been low. He had an H and H of 8.9, which is consecutive with his previous H and Hs. However, at this time given his significant clinical findings of generalized weakness and dizziness, I went ahead and gave him a unit of blood, which significantly helped the patient. Patient's hemoglobin was 10.2 posttransfusion. He has been eating well. Also, he was seen by Speech Therapy, who recommended patient to have nectar thick liquids. Patient has been notified about this. Patient has been eating and drinking quite well here. He will be discharged home. He will follow up with his primary care. HOME MEDICATIONS: 1. He is going to be on DuoNeb as needed. 2. Tramadol as needed. 3. Protonix 40 mg daily. 4. Carvedilol 12.5 twice a day. 5. Flagyl 500 mg t.i.d. for the next couple of days, total of 10 days. 6. Lidocaine viscous mouth solution 30 mL as needed. 7. Levaquin 750 mg two pills for a total of 10 days. 8. Also, I am starting him on some midodrine 2.5 mg daily to help to see if that would help with his pressures. PHYSICAL EXAMINATION: VITAL SIGNS: On discharge are as of the following; temperature 98.2, 75, 18, 95% on room air, and 97/66. GENERAL: He is awake, alert, and oriented x3. Does not appear in distress. CV: S1, S2 present. No murmurs, rubs, or gallops. ABDOMEN: Soft and nontender. Bowel sounds are present x2. DISPOSITION: Again, he will be discharged home. FOLLOWUP: He will follow up with his primary care. Job ID: [id number]
== END 2020-02-28 11:25 | disposition home or self-care (01) | DRG 177 ==
LOC: ERS 16:49 → 2SW 21:24 → ONC 02-22 12:52
PROVIDERS: ADMIT Internal Medicine; ATTEND Internal Medicine
PROC: 30233N1 Transfusion of Nonautologous Red Blood Cells into Peripheral Vein, Percutaneous Approach (ICD-10-PCS; principal; 2020-02-26)
DX: J69.0 Pneumonitis due to inhalation of food and vomit (principal); E43 Unspecified severe protein-calorie malnutrition; J96.01 Acute respiratory failure with hypoxia; E87.1 Hypo-osmolality and hyponatremia; N17.9 Acute kidney failure, unspecified; I50.22 Chronic systolic (congestive) heart failure; J44.1 Chronic obstructive pulmonary disease with (acute) exacerbation; Z68.1 Body mass index [BMI] 19.9 or less, adult; Z20.828 Contact with and (suspected) exposure to other viral communicable diseases; C12 Malignant neoplasm of pyriform sinus; I89.1 Lymphangitis; M10.9 Gout, unspecified; F17.210 Nicotine dependence, cigarettes, uncomplicated; I25.10 Atherosclerotic heart disease of native coronary artery without angina pectoris; D63.0 Anemia in neoplastic disease; K22.70 Barrett's esophagus without dysplasia; I73.9 Peripheral vascular disease, unspecified; D69.6 Thrombocytopenia, unspecified; I11.0 Hypertensive heart disease with heart failure; Z79.899 Other long term (current) drug therapy; Z88.8 Allergy status to other drugs, medicaments and biological substances; I25.2 Old myocardial infarction; Z95.810 Presence of automatic (implantable) cardiac defibrillator
CPT/HCPCS: 36415; 36430; 71045; 71275; 80048; 80053; 81001; 82533; 82553; 82805; 83605; 83690; 83735; 83880; 84484; 85025; 85379; 86850; 86900; 86901; 87040; 87635; 93005; 93306; 94640; 94664; 94760; 96361; 96365; 96367; 96368; C9113; J0456; J0696; J1650; J2930; J3475; J3490; J7050; J7512; J7608; J7620; P9016; P9047; Q0163; Q9967; U0002; U0003

== ENCOUNTER 2020-03-13 14:00 | Outpatient (CLI) | payer MEDICARE ==
--- NOTE | 2020-03-13 15:55 | CT ---
CT OF THE CHEST WITH IV CONTRAST INDICATION: History of previous sinus head and neck cancer COMPARISON: Prior PET/CT dated December 04, 2019, CTA of the chest dated February 21, 2020, CT of the est dated March 14, 2019, October 31, 2018 FINDINGS: CHEST: Lungs: The spiculated subpleural opacity in the anterior segment of the right upper lobe has enlarged now measuring 1.7 cm were on the previous CT of the chest dated 02/21/2020 this measured 1.4 cm. 2 inferior adjacent satellite nodules now measure 7 and 5 mm were previously measured 4 and 3 mm. There is a new 3.5 mm pulmonary nodule in the apical posterior segment left upper lobe on image 35 of series 3. The 7 8 mm subpleural pulmonary nodule in the posterior right lower lobe on image 24 series 3 is relatively stable. The 6 mm pulmonary nodule in the right upper lobe on image 69 series 3 has enlarged now measuring 9 mm were previously measured 6 mm. Small 6 mm subpleural pulmonary nodule in the right middle lobe on image 74 series 3 is slightly larger than the prior examination where measured 5 mm. There is a 1 cm nodular opacity in the left lower lobe on image 95 of series 3 adjacen t to areas of subsegmental volume loss which may reflect rounded atelectasis or new pulmonary nodule. There is areas of subsegmental volume loss within the posterior medial right lower lobe. Ther e is a new 5 mm pulmonary nodule on image 90 of series 3 in the right lower lobe. Pleural space: No effusion. Mediastinum: There is cardiac pacemaker overlying left chest wall. There are prominent coronary arter y and thoracic aortic calcifications. There is moderate narrowing involving the origin involving the proximal left subclavian artery. Upper abdomen:There is a small flash filling lesion within the right hepatic lobe on image 100 series 2 which was present on a CT of the chest dated October 31, 2018 and is relatively stable in size suspicious for a small flash filling hemangioma. No abnormal PET uptake is seen within this region on the comparison PET scan. Osseous structures: No acute osseous abnormality. No destructive osteolytic or osteoblastic lesion i s identified. There is scattered degenerative and osteoarthritic changes. Soft tissues:Normal. IMPRESSION: 1. Worsening pulmonary metastatic disease 2. Small flash filling lesion in the right hepatic lobe measuring approximately 15 mm is stable to co mparison CT of the chest dated 10/23/2018 suspicious for small flash filling hemangioma or small AVM. 3. Improvement in the airspace disease of both lower lobe suspicious for changes of a bronchiolitis o r possibly aspiration. There are residual subsegmental volume loss seen within the posterior medial aspects of the right and left lower lobe. New pulmonary nodular opacities are seen within this region as described above possibly reflective of areas of rounded atelectasis or new foci of metastatic disease.
--- NOTE | 2020-03-13 17:30 | CT ---
CT NECK WITH CONTRAST: 03/13/20 INDICATIONS: Cancer of piriform sinus. Correlation made to PET CT of 12/04/19 which described increasing activity in the posterior lung bases . Hypermetabolic activity in the right side of neck was noted to be stable. FINDINGS: Parotid glands appear symmetric. Submandibular glands small but symmetric. Thyroid unremarkable. Nasopharynx unremarkable. Review of oropharynx and hypopharynx again reveals mild parapharyngeal edema on the right at the leve l of the hypopharynx. This was described previously. The edema extends into the region of the pirifor m sinuses. Mild aryepiglottic fold edema. The edema is pronounced in the right neck involving the carotid space. The right sternocleidomastoid muscle has been resected. There are calcified lymph nodes in the right neck which are stable. Diffus e edema seen surrounding these nodes and lateral to the vascular bundle. Findings are similar to the prior exam, although probably less pronounced. There is skin thickening in the right neck similar to the prior study. The subcutaneous edema appears slightly less pronounced today. There are numerous serpiginous enhancing foci seen in the subcutaneous tissues of the right neck at t he level of the thyroid cartilage. This enhancement extends to the subdermal region and involves the skin laterally. Recurrence at this site should be excluded. No evidence of adenopathy. The cervical spine shows mild degenerative changes and appears stable. IMPRESSION: 1. Significant edema is again seen involving the right neck. This involves the carotid space and extends lateral from the carotids to the skin surface. It extends into the hypopharynx region simila r to the prior exam. Radiation associated edema would be suspected. 2. Prominent skin thickening in the right neck with areas of serpiginous enhancement in the skin and subcutaneous region of the lateral right neck. Recurrence at this site should be excluded. Other possibilities include cellulitis. Recommend clinical correlation and close follow-up. 3. Again noted are significant atherosclerotic changes in both carotid bulbs and evidence of sig nificant stenosis involving the proximal left internal carotid artery. POS: BENITO
== END 2020-03-13 14:01 | disposition home or self-care (01) ==
LOC: BICCT 14:00
PROVIDERS: ATTEND Internal Medicine Hematology & Oncology
DX: C12 Malignant neoplasm of pyriform sinus (principal); R91.8 Other nonspecific abnormal finding of lung field; I65.22 Occlusion and stenosis of left carotid artery; R23.4 Changes in skin texture; C78.00 Secondary malignant neoplasm of unspecified lung; K76.9 Liver disease, unspecified; J98.4 Other disorders of lung
CPT/HCPCS: 70491; 71260; 82565; Q9967

== ENCOUNTER 2020-05-22 17:24 | Inpatient (IN) | payer MEDICARE ==
--- NOTE | 2020-05-22 18:39 | CT ---
CT angiogram chest: 05/22/2020 COMPARISON: 02/21/2020 and 03/13/2020 HISTORY: Cough, history of head and neck cancer, assess for pulmonary embolism TECHNIQUE: Axial CT imaging obtained at 2.5 mm intervals from the thoracic inlet through the upper ab domen with IV contrast using CT angiogram protocol. Coronal and sagittal 3-D reformatted imaging obtained. FINDINGS: No axillary lymphadenopathy is evident. There are multiple mildly prominent lymph nodes in the right paratracheal region and the AP window, m easuring up to 9 mm and 10 mm respectively. Mildly prominent hilar nodes are present measuring 9 mm short axis dimension on the right and 8 mm short axis dimension on the left, nonspecific. Limited assessment of the upper abdomen demonstrates extensive severe atherosclerotic calcification o f the imaged abdominal aorta and its branches. No pleural, pericardial, or mediastinal fluid is evident. There is a transvenous pacing device inserted via a left-sided approach. Metallic densities are seen in the region of the mitral valve, stable. There is no pneumothorax noted. When compared to a chest CT performed 03/13/2020, there is a new dense area of consolidation within th e medial aspect of the right lung apex measuring 4.3 x 3.5 cm with extensive adjacent reticulonodular density. There is also a new focal area of dense consolidation within the left upper lobe superiorly measuring up to 2.9 x 3.2 cm with extensive adjacent reticulonodular density as well. There is an angulated mass within the left upper lobe on axial image 32 measuring 1.5 cm, new w hen compared to the prior CT examination. There is diffuse bronchial wall thickening involving the left lower lobe. There is reticulonodular de nsity within the inferior and medial aspect of the left lower lobe with a focal area of masslike opacity measuring 2.2 cm on axial image 102, which is slightly less conspicuous than on the 03/13/2020 CT examination. Similar diffuse bronchial wall thickening with the distal reticulonodular density noted within the right lower lobe with a peripheral area of focal opacity within the right lower lobe measuring up to 2.6 cm on axial image 104, similar when compared to prior imaging. Within the posterior inferior aspect of the right upper lobe there is new focal reticulonodular densi ty involving a portion of the lung parenchyma measuring 6.2 x 2.8 cm, new as well. There is extensive coronary arterial calcification. Review of the pulmonary arterial vasculature demonstrates no evidence for acute pulmonary arterial em bolism. There is a lytic lesion with a soft tissue component involving the anterior aspect of the right third rib, progressed since the prior examination, most consistent with osseous metastatic disease. There is adjacent pleural thickening. IMPRESSION: No evidence for acute pulmonary arterial embolism. New extensive upper lobe masslike consolidative change. New angulated mass in the left upper lobe. Pe rsistent bibasilar bronchial wall thickening with associated reticulonodular density and lower lobe consolidative change. These findings are of uncertain etiology and could represent interval developme nt of nonspecific multi lobar infectious pneumonitis and/or areas of worsening malignancy. There is an osseous lesion involving the third rib on the right which has definitely progressed when compared to prior imaging, suspicious for progression of osseous metastatic disease. CODE T
[2020-05-22] MEDS ORDERED: Electrolyte Replacement Protocol 1 EACH FS PRN (21:00)
[2020-05-22] MEDS ORDERED: Sodium Chloride 0.9% 1,000 ML IV SCH (21:00)
[2020-05-22] MEDS: Sodium Chloride 0.9% 1,000 ML IV SCH (22:49)
--- NOTE | 2020-05-23 02:53 | HP ---
REASON FOR ADMISSION: Weakness. HISTORY OF PRESENT ILLNESS: This is a 70-year-old male patient, who is known to have throat cancer, undergoing chemotherapy. He presents today reporting fatigue and poor appetite. He is coughing, but producing clear phlegm. Denies fevers. Denies chills. He is somewhat of a poor historian. I did review his records, and he was recently in our hospital, admitted in February of this year for acute hypoxic respiratory failure most likely secondary to pneumonia versus lymphangitic spread. During his stay, he was treated with IV Solu-Medrol for COPD exacerbation. He was started on IV antibiotics. He did improve. He was discharged on antibiotics. He was noted to have low blood pressure. He was discharged on midodrine. The patient reports to me that he uses midodrine on as-needed basis whenever he feels that his blood pressure is low. He continues to receive chemotherapy. 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 2. Anemia. 3. Coronary artery disease. 4. COPD. 5. Post stents, post [place]. 6. Gout. 7. Throat cancer. 8. Lung cancer. SOCIAL HISTORY: Continues to smoke half a pack a day. FAMILY HISTORY: Negative for premature carotid disease. ALLERGIES: CILOSTAZOL. REVIEW OF SYSTEMS: All systems reviewed except the above-mentioned, fatigue and poor appetite, found to be negative. PHYSICAL EXAMINATION: GENERAL: He is awake, alert, oriented, does not appear in distress. He does appear cachectic. VITAL SIGNS: His blood pressure is 119/69, heart rate of 90, temperature 97.4, saturating 97% on room air. HEENT: Head is nontraumatic, normocephalic. Pupils are equal and reactive. Extraocular movements are intact. Nonicteric sclerae. Well injected conjunctivae. Oral mucosa normal. Nasal mucosa normal. NECK: Supple. No adenopathy. No murmur. Thyroid is not palpable. Trachea is midline. No supraclavicular adenopathy. HEART: S1, S2 regular. Distant heart sounds. No murmurs. No gallops. No friction rubs. No displacement on PMI. LUNGS: Poor inspiratory effort. Decreased air entry bilaterally. ABDOMEN: Bowel sounds are positive. Nontender abdomen. No visceromegaly. EXTREMITIES: No lower extremity edema. No cyanosis. NEURO: Cranial nerves 2 through 12 within normal limits. Normal motor function. Normal sensory function. Normal reflexes. LABORATORY DATA: Blood work shows WBC of 4.6, hemoglobin 9.8, platelets of 234. D-dimer 1.43. Sodium 127, potassium 3.4, magnesium 1.5, creatinine 0.85. TSH 6.5755. Troponin 0.012. DIAGNOSTIC DATA: CT of the chest shows no acute PE. New extensive upper lobe masslike consolidative change. New angulated mass in the left upper lobe. Persistent bibasilar bronchial wall thickening with associated reticulonodular density and lower lobe consolidative change. These findings are of uncertain etiology and could represent interval development of nonspecific multilobar infectious pneumonitis and/or an area of worsening malignancy. There is an osseous lesion involving the third rib on the right, which has definitely progressed when compared to prior imaging suspicious for progression of osseous metastatic disease. ASSESSMENT AND PLAN: This is a 70-year-old male patient presenting with generalized fatigue in the setting of throat cancer, undergoing chemotherapy. His CAT scan does show progression of his disease versus possible superimposed pneumonitis. His blood work does show hyponatremia, hypokalemia, and hypomagnesemia most likely due to poor oral intake. Renal system, electrolyte: The patient will be on IV fluids. We will recheck his electrolytes in a.m. until then he will also be on electrolytes replacement therapy for potassium and magnesium. Endocrinology: His TSH is elevated. We will check T3 and T4 level. Pulmonary: The patient possibly has pneumonia. We will continue with Levaquin. He did receive cefepime and vanco. For DVT prophylaxis, he will be on Lovenox. I am awaiting his med-rec to be done. He takes midodrine on as-needed basis. His current blood pressure is fluctuating. His last one was systolic of 90. For him, it is not very low. The patient does have history of low EF. So, we will have him on gentle hydration to be reassessed in the morning. I did discuss with him his code status. He wishes to be a full code. Job ID: [id number]
[2020-05-23 04:33] VITALS: BMI 19.5
[2020-05-23 05:33] LABS: #Lymphocytes 0.3 thou/uL (1.20-3.40); #Monocytes 0.6 thou/uL (0.11-0.59); %Basophils 0.9 % (0.0-1.0); %Eosinophils 0.5 % (0.0-10.0); %Lymphocytes 8.7 % (21.0-51.0); %Monocytes 14.2 % (0.0-10.0); %Neutrophils 75.7 % (42.0-75.0); Hemoglobin 7.6 g/dL (14.0-18.0); Mean Corpuscular HGB CONC 34.4 g/dL (32.0-36.0); Mean Corpuscular Hemoglobin 32.7 pg (27.0-31.0); Mean Platelet Volume 6.9 fL (7.4-10.4); Platelet Count 188 thou/uL (130-400); RBC Distribution Width 14.7 % (11.5-14.5); Red Blood Cell (RBC) Count 2.32 mill/uL (4.70-6.10); White Blood Cell (WBC) Count 3.9 thou/uL (4.8-10.8)
[2020-05-23 06:04] LABS: Anion Gap 13 mmol/L (10-20); BUN (Urea Nitrogen) 16 mg/dL (8.4-25.7); Calc. Creatinine Clearance 79 mL/min (70-130); Carbon Dioxide 21 mmol/L (23-31); Chloride 98 mmol/L (98-107); Glucose 84 mg/dL (80-115); Magnesium 1.2 mg/dL (1.6-2.6); Potassium 3.2 mmol/L (3.5-5.1); Sodium 129 mmol/L (136-145)
[2020-05-23 06:25] LABS: Free T4 (Free Thyroxine) 0.91 ng/dL (0.70-1.48)
[2020-05-23] MEDS ORDERED: Magnesium Sulfate 4 GM in Sodium Chloride 0.9% 250 ML 250 ML IVPB SCH (06:30)
[2020-05-23] MEDS ORDERED: FLU VACC QS2020-21(65YR UP)/PF 240 MCG/0.7 ML SYRINGE IM ONE (09:00)
[2020-05-23] MEDS: Enoxaparin Sodium 40 MG/0.4 ML SYRINGE SC SCH (09:24)
[2020-05-23] MEDS: Potassium Chloride 20 MEQ in Premix Bag 1 BAG IVPB SCH ×2 (09:45→09:46)
--- NOTE | 2020-05-23 16:48 | PDOC.HOSPP ---
- Subjective Encounter Date: 05/23/20 Encounter Time: 12:30 Subjective: Patient up in bed no complaints. - Objective Vital Signs & Weight: Vital Signs (12 hours) Temp Pulse Resp BP Pulse Ox 05/23/20 16:20 98.0 F 82 17 102/58 L 97 05/23/20 12:00 94 L 05/23/20 11:55 99.8 F H 100 16 97/57 L 94 L 05/23/20 08:00 95 05/23/20 07:38 98.0 F 79 17 94/58 L 95 Weight Weight 132 lb 4.438 oz Result Diagrams: 05/23/20 05:25 05/23/20 05:25 Hospitalist ROS - Review of Systems Cardiovascular: denies: chest pain, palpitations, orthopnea, paroxysmal noc. dyspnea, edema, light headedness, other Gastrointestinal: denies: nausea, vomiting, abdominal pain, diarrhea, constipation, melena, hematochezia, other Genitourinary: denies: dysuria, frequency, incontinence, hematuria, retention, other - Medication Medications: Active Medications Generic Name Dose Route Start Last Admin Trade Name Freq PRN Reason Stop Dose Admin Enoxaparin Sodium 40 mg 05/23/20 09:00 05/23/20 09:24 Enoxaparin Sodium 40 Mg/0.4 Ml Syringe SC 40 mg 0900 LENIN Administration Sodium Chloride 1,000 mls @ 50 mls/hr 05/22/20 21:45 05/22/20 22:49 Normal Saline 0.9% IV 1,000 mls .Q20H LENIN Administration Sodium Chloride 10 ml 05/23/20 09:00 05/23/20 09:25 Flush - Normal Saline 10 Ml Syringe IVF Not Given Q12HR LENIN - Exam Neck: negative: supple, symmetric, no JVD, no thyromegaly, no lymphadenopathy, no carotid bruit, JVD Heart: negative: RRR, no murmur, no gallops, no rubs, normal peripheral pulses, irregular, diminshed peripheral pulses, murmur present, II/IV, III/IV Respiratory: rales, rhonchi Gastrointestinal: negative: soft, non-tender, non-distended, normal bowel sounds, no palpable masses, no hepatomegaly, no splenomegaly, no bruit, no guarding, no rigidity, tender to palpation, distended, diminished bowl sounds, voluntary guarding Hosp A/P (1) CAD (coronary artery disease) Code(s): I25.10 - ATHSCL HEART DISEASE OF [place] CORONARY ARTERY W/O ANG PCTRS Status: Chronic (2) CHF (congestive heart failure) Code(s): I50.9 - HEART FAILURE, UNSPECIFIED Status: Chronic (3) HLD (hyperlipidemia) Code(s): E78.5 - HYPERLIPIDEMIA, UNSPECIFIED Status: Chronic (4) PAD (peripheral artery disease) Code(s): I73.9 - PERIPHERAL VASCULAR DISEASE, UNSPECIFIED Status: Chronic (5) Generalized weakness Code(s): R53.1 - WEAKNESS Status: Acute (6) Pneumonia Code(s): J18.9 - PNEUMONIA, UNSPECIFIED ORGANISM Status: Resolved (7) Malignant tumor of pyriform sinus Code(s): C12 - MALIGNANT NEOPLASM OF PYRIFORM SINUS Status: Chronic - Plan Patient stated that he started feeling weak all over. CT chest indicated worsening left upper lobe masslike consolidative change. Patient states that he does follow-up with oncology for chemotherapy. He has not been adhering to his diet of nectar thick liquids. I did get speech to see him however patient does not want to go by speech is recommendation and want to eat diet with risk of aspiration. I will continue Levaquin for now and steroids. Continue to monitor hemoglobin and transfuse as needed.
[2020-05-23] MEDS: Acetaminophen 325 MG TAB PO PRN (16:59)
[2020-05-23] MEDS: traMADol HCl 50 MG TAB PO PRN (16:59)
[2020-05-23] MEDS: Sodium Chloride 0.9% 1,000 ML IV SCH (17:02)
[2020-05-23] MEDS: Mometasone 200 MCG/Formoterol 5 MCG 120 PUFF INHALER INH SCH (19:32)
[2020-05-23] MEDS: Carvedilol 6.25 MG TAB PO SCH (20:40)
[2020-05-23] MEDS ORDERED: Carvedilol 3.125 MG TAB PO SCH (21:00)
[2020-05-23] MEDS ORDERED: Non-Formulary Item 1 EACH (Fluticasone/Salmeterol [Advair Diskus 250/50] 1 EACH Blst.W.De IH SCH (21:00)
[2020-05-24] MEDS: traMADol HCl 50 MG TAB PO PRN (01:08)
[2020-05-24] MEDS: Acetaminophen 325 MG TAB PO PRN (01:09)
[2020-05-24] MEDS: Sodium Chloride 3% (15 ML) NEB NEB SCH ×3 (03:57→22:22)
[2020-05-24] MEDS: Sodium Chloride 0.9% 1,000 ML IV SCH (03:57)
[2020-05-24 05:46] LABS: Anion Gap 12 mmol/L (10-20); BUN (Urea Nitrogen) 8 mg/dL (8.4-25.7); Calc. Creatinine Clearance 83 mL/min (70-130); Calcium 7.7 mg/dL (7.8-10.44); Carbon Dioxide 21 mmol/L (23-31); Chloride 99 mmol/L (98-107); Glucose 90 mg/dL (80-115); Magnesium 1.5 mg/dL (1.6-2.6); Phosphorus 2.5 mg/dL (2.3-4.7); Potassium 3.2 mmol/L (3.5-5.1); Sodium 129 mmol/L (136-145)
[2020-05-24 05:53] LABS: Hemoglobin 6.8 g/dL (14.0-18.0); Mean Corpuscular HGB CONC 33.9 g/dL (32.0-36.0); Mean Corpuscular Hemoglobin 32.2 pg (27.0-31.0); Mean Corpuscular Volume 94.9 fL (78.0-98.0); Platelet Count 174 thou/uL (130-400); RBC Distribution Width 14.7 % (11.5-14.5); Red Blood Cell (RBC) Count 2.11 mill/uL (4.70-6.10); White Blood Cell (WBC) Count 2.8 thou/uL (4.8-10.8)
[2020-05-24 06:07] LABS: Band 6 % (5-11); Lymphocytes 13 % (21-51); MDiff Complete? YES; Monocytes 10 % (0-10); Neutrophil 71 % (42-75)
[2020-05-24] MEDS: Mometasone 200 MCG/Formoterol 5 MCG 120 PUFF INHALER INH SCH ×2 (06:44→22:23)
[2020-05-24] MEDS ORDERED: Potassium Chloride 20 MEQ TAB PO SCH ×2 (07:45→11:00)
[2020-05-24] MEDS: Midodrine HCl 5 MG TAB PO SCH (08:37)
[2020-05-24] MEDS: Enoxaparin Sodium 40 MG/0.4 ML SYRINGE SC SCH (08:39)
[2020-05-24] MEDS: Carvedilol 6.25 MG TAB PO SCH ×2 (08:41→20:26)
[2020-05-24] MEDS ORDERED: Magnesium 2 GM/50 ML 2 GM in Premix Bag 1 BAG IVPB SCH (09:00)
--- NOTE | 2020-05-24 15:26 | PDOC.HOSPP ---
- Subjective Subjective: Patient was seen examined. c/o gen weakness. Hb 6.8 - Objective Vital Signs & Weight: Vital Signs (12 hours) Temp Pulse Resp BP BP Pulse Ox 05/24/20 13:00 97.5 F L 97 05/24/20 11:55 97.9 F 72 18 109/61 96 05/24/20 08:41 105/59 L 05/24/20 08:15 96 05/24/20 07:16 97.9 F 69 18 105/59 L 96 05/24/20 06:45 66 18 99 Weight Weight 132 lb 4.438 oz Most Recent Monitor Data Heart Rate from ECG 89 NIBP 120/68 Respiration from ECG 18 I&O: 05/23/20 05/24/20 05/25/20 06:59 06:59 06:59 Intake Total 2640 0 Output Total 1575 Balance 1065 0 Result Diagrams: 05/24/20 05:19 05/24/20 05:19 Hospitalist ROS - Medication Medications: Active Medications Generic Name Dose Route Start Last Admin Trade Name Freq PRN Reason Stop Dose Admin Acetaminophen 650 mg 05/22/20 20:53 05/24/20 01:09 Acetaminophen 325 Mg Tab PO 650 mg Q4H PRN Administration Headache/Fever/Mild Pain (1-3) Albuterol/Ipratropium 3 ml 05/23/20 11:16 05/24/20 06:45 Ipratropium/Albuterol Sulfate 3 Ml Neb NEB 3 ml PRN PRN Administration SOB &/or Wheezing Carvedilol 12.5 mg 05/23/20 21:00 05/24/20 08:41 Carvedilol 6.25 Mg Tab PO Not Given BID LENIN Enoxaparin Sodium 40 mg 05/23/20 09:00 05/24/20 08:39 Enoxaparin Sodium 40 Mg/0.4 Ml Syringe SC 40 mg 0900 LENIN Administration Levofloxacin 750 mg/ Device 150 mls @ 100 mls/hr 05/23/20 21:00 05/23/20 20:42 IVPB 150 mls Q24HR LENIN Administration Sodium Chloride 1,000 mls @ 50 mls/hr 05/22/20 21:45 05/24/20 03:57 Normal Saline 0.9% IV 1,000 mls .Q20H LENIN Administration Midodrine 2.5 mg 05/24/20 09:00 05/24/20 08:37 Midodrine Hcl 5 Mg Tab PO 2.5 mg DAILY LENIN Administration Mometasone Furoate/Formoterol Fumar 2 puff 05/23/20 18:30 05/24/20 06:44 Mometasone 200 Mcg/Formoterol 5 Mcg 120 Puff Inhaler INH 2 puff BID-RT LENIN Administration Sodium Chloride 10 ml 05/23/20 09:00 05/24/20 08:40 Flush - Normal Saline 10 Ml Syringe IVF 10 ml Q12HR LENIN Administration Sodium Chloride 15 ml 05/23/20 18:30 05/24/20 06:47 Sodium Chloride 3% (15 Ml) Neb NEB Not Given BID-RT LENIN Tramadol HCl 50 mg 05/23/20 10:59 05/24/20 01:08 Tramadol Hcl 50 Mg Tab PO 50 mg Q6H PRN Administration Pain - Exam General Appearance: NAD Eye: PERRL ENT: normocephalic atraumatic Neck: supple Heart: RRR Respiratory: CTAB, no wheezes Gastrointestinal: soft, non-tender Extremities: no cyanosis, no clubbing Skin: normal turgor Neurological: cranial nerve grossly intact Psychiatric: normal affect, normal behavior, A&O x 3 Hosp A/P - Plan Pt is a 70 years old gentleman who has significant past medical history of malignant tumors of the piriform sinus, CAD with history of PCI, COPD, gout who presented with generalized fatigue Presumed PNA - Abn. CT scan --cont Levaquin, cont nebs. Anemia due to chronic disease --His hemoglobin 6.8, will transfuse him 1 unit, repeat CBC Malignant tumor of piriform sinus --Patient followed by Dr. Kohler, will consult on Tuesday HTN, essential --cont Coreg Generalized weakness --Secondary to above, PT eval
[2020-05-25] MEDS: traMADol HCl 50 MG TAB PO PRN ×2 (00:04→22:29)
[2020-05-25] MEDS: Acetaminophen 325 MG TAB PO PRN ×2 (00:05→22:28)
[2020-05-25 04:34] LABS: Reticulocyte Count 1.1 % (0.5-1.5)
[2020-05-25 04:54] LABS: Anion Gap 12 mmol/L (10-20); BUN (Urea Nitrogen) 7 mg/dL (8.4-25.7); Calc. Creatinine Clearance 82 mL/min (70-130); Carbon Dioxide 25 mmol/L (23-31); Chloride 96 mmol/L (98-107); Glucose 83 mg/dL (80-115); Iron Binding Capacity, Total 141 mcg/dL (261-462); Magnesium 1.4 mg/dL (1.6-2.6); Potassium 3.7 mmol/L (3.5-5.1); Sodium 129 mmol/L (136-145)
[2020-05-25] MEDS ORDERED: Magnesium Sulfate 4 GM in Sodium Chloride 0.9% 250 ML 250 ML IVPB SCH (05:15)
[2020-05-25] MEDS: Sodium Chloride 0.9% 1,000 ML IV SCH (05:26)
[2020-05-25 05:42] LABS: Band 14 % (5-11); Eosinophils 1 % (0-10); Hemoglobin 8.5 g/dL (14.0-18.0); Lymphocytes 12 % (21-51); MDiff Complete? YES; Mean Corpuscular HGB CONC 33.2 g/dL (32.0-36.0); Mean Corpuscular Hemoglobin 31.3 pg (27.0-31.0); Mean Corpuscular Volume 94.2 fL (78.0-98.0); Mean Platelet Volume 7.3 fL (7.4-10.4); Monocytes 9 % (0-10); Neutrophil 63 % (42-75); Platelet Count 214 thou/uL (130-400); RBC Distribution Width 14.7 % (11.5-14.5); Reactive Lymphocytes 1 % (0-10); White Blood Cell (WBC) Count 3.3 thou/uL (4.8-10.8)
[2020-05-25] MEDS: Mometasone 200 MCG/Formoterol 5 MCG 120 PUFF INHALER INH SCH ×2 (06:30→19:34)
[2020-05-25] MEDS: Sodium Chloride 3% (15 ML) NEB NEB SCH ×2 (06:47→19:39)
[2020-05-25] MEDS: Carvedilol 6.25 MG TAB PO SCH ×2 (09:39→20:24)
[2020-05-25] MEDS: Enoxaparin Sodium 40 MG/0.4 ML SYRINGE SC SCH (09:59)
[2020-05-25] MEDS: Midodrine HCl 5 MG TAB PO SCH (10:00)
[2020-05-25] MEDS ORDERED: Potassium Chloride 20 MEQ TAB PO SCH (11:00)
--- NOTE | 2020-05-25 12:49 | PDOC.HOSPP ---
- Subjective Subjective: Patient was seen examined at bedside. Patient denies any fever or cough. He status post 1 unit of blood transfusion. His hemoglobin went up from 6.8-8.5 today. No evidence of active bleeding. He still have multiple electrolytes abnormality, currently being repleted. - Objective Vital Signs & Weight: Vital Signs (12 hours) Temp Pulse Resp BP BP BP Pulse Ox 05/25/20 12:00 98.2 F 85 18 100/58 L 99 05/25/20 09:39 98/55 L 05/25/20 08:00 98.0 F 90 18 113/83 98 05/25/20 06:47 76 12 05/25/20 03:53 97.7 F 65 14 100/58 L 95 Weight Weight 132 lb 4.438 oz Most Recent Monitor Data Heart Rate from ECG 75 NIBP 90/50 Respiration from ECG 18 I&O: 05/24/20 05/25/20 05/26/20 06:59 06:59 06:59 Intake Total 2640 2825 Output Total 1575 1775 Balance 1065 1050 Result Diagrams: 05/25/20 04:08 05/25/20 04:07 Radiology Reviewed by me: Yes EKG Reviewed by me: Yes Hospitalist ROS - Medication Medications: Active Medications Generic Name Dose Route Start Last Admin Trade Name Freq PRN Reason Stop Dose Admin Acetaminophen 650 mg 05/22/20 20:53 05/25/20 00:05 Acetaminophen 325 Mg Tab PO 650 mg Q4H PRN Administration Headache/Fever/Mild Pain (1-3) Albuterol/Ipratropium 3 ml 05/23/20 11:16 05/24/20 06:45 Ipratropium/Albuterol Sulfate 3 Ml Neb NEB 3 ml PRN PRN Administration SOB &/or Wheezing Carvedilol 12.5 mg 05/23/20 21:00 05/25/20 09:39 Carvedilol 6.25 Mg Tab PO Not Given BID LENIN Enoxaparin Sodium 40 mg 05/23/20 09:00 05/25/20 09:59 Enoxaparin Sodium 40 Mg/0.4 Ml Syringe SC 40 mg 0900 LENIN Administration Levofloxacin 750 mg/ Device 150 mls @ 100 mls/hr 05/23/20 21:00 05/24/20 20:26 IVPB 150 mls Q24HR LENIN Administration Sodium Chloride 1,000 mls @ 50 mls/hr 05/22/20 21:45 05/25/20 05:26 Normal Saline 0.9% IV 1,000 mls .Q20H LENIN Administration Midodrine 2.5 mg 05/24/20 09:00 05/25/20 10:00 Midodrine Hcl 5 Mg Tab PO Not Given DAILY LENIN Mometasone Furoate/Formoterol Fumar 2 puff 05/23/20 18:30 05/25/20 06:30 Mometasone 200 Mcg/Formoterol 5 Mcg 120 Puff Inhaler INH 2 puff BID-RT LENIN Administration Potassium Chloride 40 meq 05/25/20 11:00 05/25/20 10:53 Potassium Chloride 20 Meq Tab PO 05/25/20 14:00 40 meq 1100 LENIN Administration Sodium Chloride 10 ml 05/23/20 09:00 05/25/20 10:00 Flush - Normal Saline 10 Ml Syringe IVF 10 ml Q12HR LENIN Administration Sodium Chloride 15 ml 05/23/20 18:30 05/25/20 06:47 Sodium Chloride 3% (15 Ml) Neb NEB 15 ml BID-RT LENIN Administration Tramadol HCl 50 mg 05/23/20 10:59 05/25/20 00:04 Tramadol Hcl 50 Mg Tab PO 50 mg Q6H PRN Administration Pain - Exam General Appearance: NAD Eye: PERRL ENT: normocephalic atraumatic Neck: supple Heart: RRR, no murmur Respiratory: CTAB Gastrointestinal: soft Neurological: cranial nerve grossly intact Musculoskeletal: normal tone Psychiatric: normal affect, normal behavior, A&O x 3 Hosp A/P - Plan Pt is a 70 years old gentleman who has significant past medical history of malignant tumors of the piriform sinus, CAD with history of PCI, COPD, gout who presented with generalized fatigue Presumed PNA - Abn. CT scan --cont Levaquin, cont nebs. Anemia due to chronic disease --check iron profile. transfuse 1U. follow CBC Malignant tumor of piriform sinus --Patient followed by Dr. Kohler, will consult on Tuesday HTN, essential --cont Coreg Generalized weakness --Secondary to above, PT eval Electrolyte abnormality --Replace mag, and potassium. Follow a.m. 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 rpt BMP in AM. check TSH level
[2020-05-25] MEDS ORDERED: Docusate 100 MG CAP PO PRN (14:27)
[2020-05-25] MEDS ORDERED: Polyethylene Glycol 3350 17 GM Packet PO PRN (14:27)
[2020-05-26] MEDS: Sodium Chloride 0.9% 1,000 ML IV SCH (05:10)
[2020-05-26 05:22] LABS: Anion Gap 11 mmol/L (10-20); BUN (Urea Nitrogen) 8 mg/dL (8.4-25.7); Calc. Creatinine Clearance 82 mL/min (70-130); Calcium 7.9 mg/dL (7.8-10.44); Carbon Dioxide 25 mmol/L (23-31); Chloride 96 mmol/L (98-107); Glucose 86 mg/dL (80-115); Iron 17 ug/dL (65-175); Magnesium 1.5 mg/dL (1.6-2.6); Potassium 4.1 mmol/L (3.5-5.1); Sodium 128 mmol/L (136-145)
[2020-05-26 05:39] LABS: Band 7 % (5-11); Hemoglobin 7.8 g/dL (14.0-18.0); Lymphocytes 13 % (21-51); MDiff Complete? YES; Mean Corpuscular HGB CONC 33.8 g/dL (32.0-36.0); Mean Corpuscular Hemoglobin 31.9 pg (27.0-31.0); Mean Corpuscular Volume 94.5 fL (78.0-98.0); Mean Platelet Volume 7.1 fL (7.4-10.4); Monocytes 17 % (0-10); Myelocyte 1 % (0-0); Neutrophil 62 % (42-75); Platelet Count 215 thou/uL (130-400); RBC Distribution Width 14.7 % (11.5-14.5); Red Blood Cell (RBC) Count 2.45 mill/uL (4.70-6.10); White Blood Cell (WBC) Count 2.9 thou/uL (4.8-10.8)
[2020-05-26] MEDS ORDERED: Magnesium 2 GM/50 ML 2 GM in Premix Bag 1 BAG IVPB SCH (06:30)
--- NOTE | 2020-05-26 07:04 | PDOC.HOSPP ---
- Subjective Encounter Date: 05/26/20 Encounter Time: 09:00 Subjective: Patient with fatigue but feels better past couple days than he has in a long time. Eating well. Awaiting Onc consultation. - Objective Vital Signs & Weight: Vital Signs (12 hours) Temp Pulse Resp BP BP Pulse Ox 05/25/20 20:24 118/60 05/25/20 20:00 98.9 F 92 20 118/60 94 L 05/25/20 19:35 88 18 95 Weight Weight 132 lb 4.438 oz Most Recent Monitor Data Heart Rate from ECG 75 NIBP 90/50 Respiration from ECG 18 I&O: 05/25/20 05/26/20 05/27/20 06:59 06:59 06:59 Intake Total 2825 2019 Output Total 1775 4605 Balance 1050 -3892 Result Diagrams: 05/26/20 04:26 05/26/20 04:26 Hospitalist ROS - Review of Systems Constitutional: denies: fever, chills Respiratory: denies: cough, shortness of breath Cardiovascular: denies: chest pain, palpitations Gastrointestinal: denies: nausea, vomiting, abdominal pain - Medication Medications: Active Medications Generic Name Dose Route Start Last Admin Trade Name Freq PRN Reason Stop Dose Admin Acetaminophen 650 mg 05/22/20 20:53 05/25/20 22:28 Acetaminophen 325 Mg Tab PO 650 mg Q4H PRN Administration Headache/Fever/Mild Pain (1-3) Albuterol/Ipratropium 3 ml 05/23/20 11:16 05/25/20 19:35 Ipratropium/Albuterol Sulfate 3 Ml Neb NEB 3 ml PRN PRN Administration SOB &/or Wheezing Carvedilol 12.5 mg 05/23/20 21:00 05/25/20 20:24 Carvedilol 6.25 Mg Tab PO 12.5 mg BID LENIN Administration Docusate Sodium 100 mg 05/25/20 14:27 05/25/20 20:27 Docusate 100 Mg Cap PO 100 mg BIDPRN PRN Administration Constipation Enoxaparin Sodium 40 mg 05/23/20 09:00 05/25/20 09:59 Enoxaparin Sodium 40 Mg/0.4 Ml Syringe SC 40 mg 0900 LENIN Administration Levofloxacin 750 mg/ Device 150 mls @ 100 mls/hr 05/23/20 21:00 05/25/20 20:23 IVPB 150 mls Q24HR LENIN Administration Sodium Chloride 1,000 mls @ 50 mls/hr 05/22/20 21:45 05/26/20 05:10 Normal Saline 0.9% IV 1,000 mls .Q20H LENIN Administration Magnesium Sulfate 2 gm/ Device 50 mls @ 50 mls/hr 05/24/20 09:00 05/26/20 06:25 IVPB 50 mls PRN LENIN Administration Midodrine 2.5 mg 05/24/20 09:00 05/25/20 10:00 Midodrine Hcl 5 Mg Tab PO Not Given DAILY LENIN Mometasone Furoate/Formoterol Fumar 2 puff 05/23/20 18:30 05/25/20 19:34 Mometasone 200 Mcg/Formoterol 5 Mcg 120 Puff Inhaler INH 2 puff BID-RT LENIN Administration Sodium Chloride 10 ml 05/23/20 09:00 05/25/20 20:23 Flush - Normal Saline 10 Ml Syringe IVF Not Given Q12HR LENIN Sodium Chloride 15 ml 05/23/20 18:30 05/25/20 19:39 Sodium Chloride 3% (15 Ml) Neb NEB 15 ml BID-RT LENIN Administration Tramadol HCl 50 mg 05/23/20 10:59 05/25/20 22:29 Tramadol Hcl 50 Mg Tab PO 50 mg Q6H PRN Administration Pain - Exam General Appearance: NAD, awake alert ENT: moist mucosa Heart: RRR, no murmur, no gallops, no rubs Respiratory: CTAB, no wheezes, no rales, no ronchi Gastrointestinal: soft, non-tender, non-distended, normal bowel sounds Psychiatric: normal affect, normal behavior, A&O x 3 Hosp A/P - Plan t is a 70 years old gentleman who has significant past medical history of malignant tumors of the piriform sinus, CAD with history of PCI, COPD, gout who presented with generalized fatigue Presumed PNA - Abn. CT scan, hx dysphagia not adherent to ST recommendations --cont Levaquin, cont nebs., no leukocytosis, sating well on room air Anemia due to chronic disease --iron profile c/w chronic disease. transfused 1U PRBC, H/H currently stable Malignant tumor of piriform sinus --Patient followed by Dr. Kohler, consult written for today HTN, essential --cont Coreg Generalized weakness --Secondary to above, PT eval- likely swing bed Electrolyte abnormality --Replacing mag, and potassium. 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 Dysphagia --Patient refusing speech therapy recs, prefers to take normal diet with risk Hypomagnesemia --Given IV replacement, still low, start daily oral repletion Possible discharge in 1-2 days.
[2020-05-26] MEDS: Sodium Chloride 3% (15 ML) NEB NEB SCH ×2 (07:17→19:12)
[2020-05-26] MEDS: Mometasone 200 MCG/Formoterol 5 MCG 120 PUFF INHALER INH SCH ×2 (07:17→19:10)
[2020-05-26] MEDS: Carvedilol 6.25 MG TAB PO SCH ×2 (08:22→21:17)
[2020-05-26] MEDS: Magnesium Oxide 400 MG TAB PO SCH ×2 (08:28→21:20)
[2020-05-26] MEDS: Midodrine HCl 5 MG TAB PO SCH (08:28)
[2020-05-26] MEDS: Enoxaparin Sodium 40 MG/0.4 ML SYRINGE SC SCH (08:28)
--- NOTE | 2020-05-26 20:38 | CON ---
DATE OF CONSULTATION: REASON FOR CONSULTATION: Squamous cell carcinoma. HISTORY OF PRESENT ILLNESS: Mr. 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 He has been on multiple regimens with the last one being methotrexate. When he was at this facility in February, he was noted to have progression. He started carboplatin and Taxol which he has been tolerating well. He presented to the emergency room on May 22 with weakness. He underwent a CT scan which showed new extensive upper lobe masslike consolidative changes. There was a new angulated mass in the left upper lobe. He had bibasilar bronchial wall thickening. When he was here in February, he did have likely pneumonitis. He has been treated with empiric antibiotics and steroids and has improved. His sodium has remained low in the upper 120s since arrival and he is currently on a fluid restriction. He is afebrile. He was due for treatment last Tuesday, but was held because of his inpatient status. PAST MEDICAL HISTORY: 1. Squamous cell carcinoma of the piriform sinus. 2. Coronary artery disease. 3. COPD. 4. History of GI bleed with Morrison's esophagus. 5. History of aspiration. 6. History of tobacco and alcohol use. PAST SURGICAL HISTORY: 1. Cardiac stents. 2. Mitral valve clips. 3. Leg stents. 4. AAA repair. ALLERGIES: NO KNOWN DRUG ALLERGIES. HOME MEDICATIONS: 1. Carvedilol. 2. Protonix. 3. Tramadol. FAMILY HISTORY: Brother had throat cancer. SOCIAL HISTORY: , 2 children, 50+ pack-year history of smoking. REVIEW OF SYSTEMS: 12-point review of systems is negative except for noted in HPI. PHYSICAL EXAMINATION: VITAL SIGNS: Temperature is 98.0, pulse is 71, respiratory rate 18, BP is 127/60. He is 96% on room air. GENERAL: This is a well-developed, well-nourished male, in no acute distress. HEENT: Normocephalic, atraumatic. Pupils are equal and reactive to light. NECK: Supple. CARDIOVASCULAR: Regular rate and rhythm. LUNGS: He has scattered wheezing throughout. ABDOMEN: Soft and nontender. Bowel sounds are positive. EXTREMITIES: No clubbing or cyanosis. NEUROLOGICAL: Nonfocal. PERTINENT LABORATORY DATA AND X-RAYS: Current WBCs of 2.9, hemoglobin 7.8, hematocrit 23.2, platelet count 215,000, 62% neutrophils, 7% bands, 13% lymphocytes. Sodium 128, potassium 4.1, chloride 96, CO2 is 25, BUN is 8, creatinine 0.73, calcium 7.9, phosphorus 2.5, magnesium 1.5. Iron 17, TIBC is 141, ferritin 858. TSH is 6.88. RADIOLOGY DATA: Per HPI. ASSESSMENT: 1. 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 2. Possible progression in lungs. 3. Hyponatremia. DISCUSSION: The patient has been treated with empiric antibiotics and is requiring no oxygen. He has minimal cough and is feeling well. He admits to drinking 8 bottles of water at home and this is likely the source of his hyponatremia. He is currently on a fluid restriction. He is eating well and has his strength back and could be discharged home once his sodium has improved. His chemotherapy that was scheduled for Tuesday has been rescheduled for later this week if he has been rescheduled for next week and we will follow up with him in the clinic. Thank you for the consult. Job ID: [id number]
[2020-05-27 04:33] LABS: #Lymphocytes 0.4 thou/uL (1.20-3.40); #Monocytes 0.5 thou/uL (0.11-0.59); #Neutrophils 2.8 thou/uL (1.40-6.50); %Basophils 0.2 % (0.0-1.0); %Eosinophils 1.3 % (0.0-10.0); %Lymphocytes 11.7 % (21.0-51.0); %Monocytes 13.9 % (0.0-10.0); Hemoglobin 8.2 g/dL (14.0-18.0); Mean Corpuscular HGB CONC 32.8 g/dL (32.0-36.0); Mean Corpuscular Hemoglobin 30.4 pg (27.0-31.0); Mean Corpuscular Volume 92.7 fL (78.0-98.0); Platelet Count 252 thou/uL (130-400); RBC Distribution Width 14.5 % (11.5-14.5); Red Blood Cell (RBC) Count 2.69 mill/uL (4.70-6.10); White Blood Cell (WBC) Count 3.8 thou/uL (4.8-10.8)
[2020-05-27 04:53] LABS: Anion Gap 12 mmol/L (10-20); BUN (Urea Nitrogen) 9 mg/dL (8.4-25.7); Calc. Creatinine Clearance 85 mL/min (70-130); Calcium 8.5 mg/dL (7.8-10.44); Carbon Dioxide 25 mmol/L (23-31); Chloride 96 mmol/L (98-107); Glucose 86 mg/dL (80-115); Potassium 4.6 mmol/L (3.5-5.1); Sodium 128 mmol/L (136-145)
[2020-05-27 05:15] LABS: Free T4 (Free Thyroxine) 0.77 ng/dL (0.70-1.48)
--- NOTE | 2020-05-27 07:16 | PDOC.HOSPP ---
- Subjective Encounter Date: 05/27/20 Encounter Time: 08:30 Subjective: Patient ambulating in the hallway with PT. Cleared for d/c by oncology to follow up for further chemo. 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 Eager to go home. - Objective Vital Signs & Weight: Vital Signs (12 hours) Temp Pulse Resp BP BP Pulse Ox 05/26/20 21:17 101/55 L 05/26/20 20:00 99.0 F 68 16 101/55 L 95 Weight Weight 132 lb 4.438 oz Most Recent Monitor Data Heart Rate from ECG 75 NIBP 90/50 Respiration from ECG 18 I&O: 05/26/20 05/27/20 05/28/20 06:59 06:59 06:59 Intake Total 2019 1139 Output Total 4655 1750 Balance -2655 -610 Result Diagrams: 05/27/20 04:06 05/27/20 04:06 Hospitalist ROS - Review of Systems Constitutional: denies: fever, chills Respiratory: denies: cough, shortness of breath Cardiovascular: denies: chest pain, palpitations Gastrointestinal: denies: nausea, vomiting, abdominal pain - Medication Medications: Active Medications Generic Name Dose Route Start Last Admin Trade Name Freq PRN Reason Stop Dose Admin Acetaminophen 650 mg 05/22/20 20:53 05/25/20 22:28 Acetaminophen 325 Mg Tab PO 650 mg Q4H PRN Administration Headache/Fever/Mild Pain (1-3) Albuterol/Ipratropium 3 ml 05/23/20 11:16 05/26/20 07:18 Ipratropium/Albuterol Sulfate 3 Ml Neb NEB 3 ml PRN PRN Administration SOB &/or Wheezing Carvedilol 12.5 mg 05/23/20 21:00 05/26/20 21:17 Carvedilol 6.25 Mg Tab PO Not Given BID LENIN Docusate Sodium 100 mg 05/25/20 14:27 05/25/20 20:27 Docusate 100 Mg Cap PO 100 mg BIDPRN PRN Administration Constipation Enoxaparin Sodium 40 mg 05/23/20 09:00 05/26/20 08:28 Enoxaparin Sodium 40 Mg/0.4 Ml Syringe SC 40 mg 0900 LENIN Administration Levofloxacin 750 mg/ Device 150 mls @ 100 mls/hr 05/23/20 21:00 05/26/20 21:20 IVPB 150 mls Q24HR LENIN Administration Magnesium Oxide 400 mg 05/26/20 09:00 05/26/20 21:20 Magnesium Oxide 400 Mg Tab PO 400 mg BID LENIN Administration Midodrine 2.5 mg 05/24/20 09:00 05/26/20 08:28 Midodrine Hcl 5 Mg Tab PO 2.5 mg DAILY LENIN Administration Mometasone Furoate/Formoterol Fumar 2 puff 05/23/20 18:30 05/26/20 19:10 Mometasone 200 Mcg/Formoterol 5 Mcg 120 Puff Inhaler INH 2 puff BID-RT LENIN Administration Sodium Chloride 10 ml 05/23/20 09:00 05/26/20 21:24 Flush - Normal Saline 10 Ml Syringe IVF 10 ml Q12HR LENIN Administration Sodium Chloride 15 ml 05/23/20 18:30 05/26/20 19:12 Sodium Chloride 3% (15 Ml) Neb NEB 15 ml BID-RT LENIN Administration Tramadol HCl 50 mg 05/23/20 10:59 05/25/20 22:29 Tramadol Hcl 50 Mg Tab PO 50 mg Q6H PRN Administration Pain - Exam General Appearance: NAD, awake alert ENT: moist mucosa Heart: RRR, no murmur, no gallops, no rubs Respiratory: CTAB, no wheezes, no rales, no ronchi Gastrointestinal: soft, non-tender, non-distended, normal bowel sounds Psychiatric: normal affect, normal behavior, A&O x 3 Hosp A/P - Plan t is a 70 years old gentleman who has significant past medical history of malignant tumors of the piriform sinus, CAD with history of PCI, COPD, gout who presented with generalized fatigue Presumed PNA - Abn. CT scan, hx dysphagia not adherent to ST recommendations --cont Levaquin, cont nebs., no leukocytosis, sating well on room air Anemia due to chronic disease --iron profile c/w chronic disease. transfused 1U PRBC, H/H currently stable Malignant tumor of piriform sinus --Patient followed by Dr. Kohler, consult cleared patient for discharge and o utpatient chemotherapy HTN, essential --cont Coreg Generalized weakness --Secondary to above, PT eval- likely swing bed vs. home health depending on how patient is doing Electrolyte abnormality --Replacing mag, and potassium. Mild hyponatremia --Likely due to SIADH given underlying metastatic disease, will d/c IV fluids due to good po intake, fluid restriction, stable Dysphagia --Patient refusing speech therapy recs, prefers to take normal diet with risk Hypomagnesemia --Given IV replacement, still low, start daily oral repletion Will d/c home with home health for PT/OT, script for rolling walker.
[2020-05-27] MEDS: Mometasone 200 MCG/Formoterol 5 MCG 120 PUFF INHALER INH SCH (07:50)
[2020-05-27 07:51] VITALS: BP 114/61; TEMP 98.4
[2020-05-27] MEDS: Sodium Chloride 3% (15 ML) NEB NEB SCH (07:51)
[2020-05-27] MEDS: Carvedilol 6.25 MG TAB PO SCH (08:46)
[2020-05-27] MEDS: Enoxaparin Sodium 40 MG/0.4 ML SYRINGE SC SCH (08:47)
[2020-05-27] MEDS: Magnesium Oxide 400 MG TAB PO SCH (08:47)
[2020-05-27] MEDS: Midodrine HCl 5 MG TAB PO SCH (08:47)
--- NOTE | 2020-05-28 09:28 | DIS ---
DATE OF ADMISSION: 05/22/2020 DATE OF DISCHARGE: 05/27/2020 PRIMARY CARE PHYSICIAN: Oralia Castillo. PRIMARY ONCOLOGIST: Dr. Kohler. REASON FOR ADMISSION: Fatigue and pneumonia. DIAGNOSES AT DISCHARGE: 1. Pneumonia, resolved. 2. Fatigue, improved. 3. Syndrome of inappropriate antidiuretic hormone secretion with mild hyponatremia. 4. Squamous cell carcinoma of the pyriform sinus with metastatic disease. 5. Anemia of chronic disease. 6. Hypertension. 7. Dysphagia. PROCEDURES: CT angio of the chest with and without contrast, showing new extensive upper lobe masslike consolidative change with a new angulated mass in the left upper lobe, persistent bibasilar bronchial wall thickening with possible inter-development of nonspecific multilobar infectious pneumonitis in the lower lobes, there was suspicion of progression of osseous metastatic disease. CONSULTATION: Oncology, Romi Crouch for Dr. Kohler. SUMMARY OF HOSPITAL COURSE: This is a 70-year-old man with a history of squamous cell cancer of the pyriform sinus with metastasis, undergoing chemotherapy. He presented with fatigue and poor appetite as well as with cough. The patient was evaluated and had a CT scan with above results. He was treated with Levaquin for possible superimposed pneumonia. Oncology was consulted concerning the progressive metastatic disease. The patient improved markedly during his hospitalization. He was eating very well, had a good appetite, and was starting to ambulate in the hallways with a walker. He did have some mildly low sodium in the high 120s. This was stable and he was put on a fluid restriction. The patient was set up to resume chemotherapy as an outpatient and is being discharged home. DISCHARGE MANAGEMENT: Discharged home with Home Health. ACTIVITY: As tolerated. DIET: Regular diet with fluid restriction of 1200 mL. THERAPY: Occupational and physical therapy with Home Health. FOLLOWUP: Follow up with Dr. Kohler for chemotherapy as directed. DISCHARGE MEDICATIONS: 1. Levofloxacin 750 mg daily for one more day for full 5 days of antibiotics, one tablet dispensed. 2. Magnesium oxide 400 mg twice a day, 60 tablets dispensed. 3. Carvedilol 12.5 mg twice a day. 4. Advair Diskus 250/50 one inhalation twice a day. 5. DuoNeb as needed. 6. Midodrine 2.5 mg daily. 7. Tramadol as needed. Job ID: [id number]
--- NOTE | 2020-05-30 11:29 | PQF ---
CLINICAL DOCUMENTATION CLARIFICATION FORM: Dear : JOSEPH ORTA MD Date / Time: 05/30/2020 Please exercise your independent, professional judgment in responding to the clarification form. Clinical indicators are provided on the bottom of this form for your review Please check appropriate box(es): [ X ] Aspiration Pneumonia [ ] Empirically treating Gram Negative Pneumonia [ ] Empirically treating Anaerobic Pneumonia [ ] Pneumonia secondary to (specify organism / underlying disease) [ ] Simple Pneumonia [ ] Bronchopneumonia [ ] Pneumonia of unknown etiology [ ] Other diagnosis (Please specify if any) [ ] Unable to determine Physician Signature: Date/Time: For continuity of documentation, please document condition throughout progress notes and discharge summary. Thank You. To be completed by CDI/Coding staff for physician review: Present Clinical Indicators - Signs / Symptoms / Labs Results and Location in Medical Record [ ] Fever, Chest pain, expectoration [ ] Elevated WBC [ ] Current aspiration or vomiting [ ] Current NG tube [x] Dysphagia-pt refusing speech therapy Hospital progress notes on 05/26 [x] Patient is suspected chronically aspirating per dysphagia related to late effects radiation Speech language pathologist on 05/23 [x] Coughing but producing clear phlegm H&P on 05/23 [x] Pneumonia Hospital progress notes on 05/23 [ ] Pulmonary infiltrate / CXR results Present Risk Factors Results and Location in Medical Record [ ] Severe Debility and or Dementia [x] Dysphagia / GERD / Hiatal hernia Hospital progress notes on 05/26 [ ] Immunocompromised [ ] Tube feedings [x] Chronic lung disease Ed provider report on 05/22 [x] Smokes cigarettes Ed provider report on 05/22 [ ] On home antibiotics for PNA w/o improvement Present Treatments Results and Location in Medical Record [ x ] Levaquin 750mg IV Medication from 05/22 to 05/27 [ ] O2 therapy / bronchodilators [ ] Tessalon perles [ ] Pulmonary consult [ ] IV fluids [ ] Aggressive Pulmonary Toilet [ ] Serial CXRs CDS/ Signature: AAS Phone #: Date/Time: 05/30/2020 This is a permanent part of the Medical Record [facility]
--- NOTE | 2020-05-30 11:49 | PQF ---
CLINICAL DOCUMENTATION CLARIFICATION FORM: Dear : JOSEPH ORTA MD Date / Time: 05/30/2020 Please exercise your independent, professional judgment in responding to the clarification form. Clinical indicators are provided on the bottom of this form for your review Please check appropriate box(es): [ X ] Protein Calorie Malnutrition: [ ] Mild [ X ] Moderate [ ] Severe [ ] Other Malnutrition (please specify) [ ] Underweight without malnutrition [ ] Cachexia [ ] Other diagnosis (Please specify if any) [ ] Unable to determine In addition, please specify: Present on Admission (POA): [ ] Yes [ ] No [ ] Unable to determine Physician Signature: Date/Time: For continuity of documentation, please document condition throughout progress notes and discharge summary. Thank You. To be completed by CDI/Coding staff for physician review: Present Clinical Indicators - Signs / Symptoms / Labs Results and Location in Medical Record [ x ] Malnutrition, Failure to Thrive, Cachexia Emergency room visit on 05/22 [ x ] BMI of 19.5 Height & weight on 05/22 Two or More of the Following ASPEN Criteria: [ x ] Poor appetite, fatigue H&P on 05/23 [ x ] Generalized fatigue in the setting of throat cancer H&P on 05/23 [ ] Loss of Muscle Mass [ ] Loss of Subcutaneous Fat [ ] Localized/Generalized Fluid Accumulation [ ] Diminished Handgrip Strength Present Risk Factors Results and Location in Medical Record [ x ] Change in appetite / nausea / vomiting / diarrhea H&P on 05/23 [ ] Inability to consume adequate caloric intake [x ] Malignant tumor Hospitalist progress notes on 05/24 [ ] Medication [ ] PEG tube [ ] Short gut syndrome Present Treatments Results and Location in Medical Record [ ] Dietary consult [x ] He is currently on a fluid restriction Consult on 05/26 [x ] He is eating well& has hi strength back & could be discharged home Consult on 05/26 [ ] Assistance with feeding [ ] Appetite stimulant - medication CDS/Rotary [employer] Dyer Signature: AAS Phone #: Date/Time: 05/30/2020 Moderate Malnutrition (in acute illness) ? Energy Intake: <75% of estimated energy requirement for > 7 days ? Weight Loss: 1-2%/1 week; 5%/ 1 month; 7.5%/3 months ? Other: mild body fat loss; mild muscle mass loss; mild fluid accumulation; Severe Malnutrition (in acute illness) ? Energy Intake: ? 50% of estimated energy requirement for ? 5 days ? Weight Loss: >2%/1 week; >5%/1 month; >7.5%/3 months ? Other: moderate body fat loss; moderate muscle mass loss; moderate- severe fluid accumulation; measurably reduced dialysis technician strength Moderate Malnutrition (in chronic illness) ? Energy Intake: <75% of estimated energy requirement for ?1 month ? Weight Loss: 5%/1 month; 7.5%/3 months; 10%/6 months; 20%/1 year ? Other: mild body fat loss; mild muscle mass loss; mild fluid accumulation Severe Malnutrition (in chronic illness) ? Energy Intake: ?75% of estimated energy requirement for ?1 month ? Weight Loss: >5%/1 month; >7.5%/3 months; >10%/6 months; >20%/1 year ? Other: severe body fat loss; severe muscle mass loss; severe fluid accumulation; measurably reduced dialysis technician strength This is a permanent part of the Medical Record [facility]
== END 2020-05-27 11:26 | disposition home health service (06) | DRG 178 ==
LOC: ERS 17:24 → SJJU 19:12 → ONC 05-24 20:01
PROVIDERS: ADMIT Family Medicine; ATTEND Emergency Medicine
DX: J69.0 Pneumonitis due to inhalation of food and vomit (principal); E22.2 Syndrome of inappropriate secretion of antidiuretic hormone; C79.9 Secondary malignant neoplasm of unspecified site; J44.0 Chronic obstructive pulmonary disease with (acute) lower respiratory infection; E44.0 Moderate protein-calorie malnutrition; Z68.1 Body mass index [BMI] 19.9 or less, adult; C12 Malignant neoplasm of pyriform sinus; I25.10 Atherosclerotic heart disease of native coronary artery without angina pectoris; D50.9 Iron deficiency anemia, unspecified; F17.210 Nicotine dependence, cigarettes, uncomplicated; M10.9 Gout, unspecified; E87.6 Hypokalemia; E83.42 Hypomagnesemia; I73.9 Peripheral vascular disease, unspecified; I50.9 Heart failure, unspecified; D63.8 Anemia in other chronic diseases classified elsewhere; I11.0 Hypertensive heart disease with heart failure; Z92.21 Personal history of antineoplastic chemotherapy; I25.2 Old myocardial infarction; Z88.8 Allergy status to other drugs, medicaments and biological substances; R13.10 Dysphagia, unspecified; Z95.5 Presence of coronary angioplasty implant and graft; R53.83 Other fatigue
CPT/HCPCS: 36415; 36430; 71275; 80048; 82607; 82728; 82746; 83540; 83550; 83615; 83735; 84100; 84439; 84443; 84481; 85025; 85046; 86850; 86900; 86901; 90471; 90662; 90732; 94640; 94664; G0008; G0009; J1650; J1956; J3475; J3480; J7050; J7620; P9016; Q9967

== ENCOUNTER 2020-06-17 09:42 | Outpatient (CLI) | payer MEDICARE ==
--- NOTE | 2020-06-17 11:08 | CT ---
CT Chest W Con History: Malignant neoplasm of the piriform sinus Comparison: CT chest May 2020. CT chest March 2020 Findings: Decreased confluent consolidative processes within both upper lobes indicative of postradia tion scar. Similar appearance of the bilateral lower lobe scar. Perifissural scarring along the right major fissure is similar axial image 38. No new suspicious pulm onary nodule. Partial resolution of the groundglass opacities within the posterior segment right upper lobe. Healing right lateral third rib ostial lysis may be sequelae of necrosis from radiation. No acute dis placed rib fracture. Mitral valve clips are present. No mediastinal adenopathy. Esophagus is unremarkable. Upper abdomen is without acute abnormality. Thoracic spine is intact. Sternum and manubrium are intact. Extensive soft plaque within the distal thoracic aorta with minimal luminal narrowing. Celiac trunk a nd superior mesenteric arteries are patent. Impression: Diffuse increased confluent bilateral upper lobe posterior posttreatment and osteonecrosi s anterolateral right third rib. No evidence for new metastatic disease.
--- NOTE | 2020-06-17 12:50 | CT ---
CT neck soft tissues with contrast: 06/17/2020 HISTORY: 70-year-old male with malignant neoplasm of piriform sinus. Request comparison with 12/04/2019 PET sca n. COMPARISON: Neck CT 03/13/2020 PET scan 12/04/2019 FINDINGS: There are 2 new spiculated lesions at the apical segment of right upper lobe and apical posterior seg ment of left upper lobe, both abutting pleural spaces. Very irregular shapes May measurements difficult, but the one on the right it is approximately 3 x 2 x 2.5 cm, and the one on the left is cu rrently 2.5 x 3 x 1.5 cm. In the apicoposterior segment of the left upper lobe, located a few centimeters anterior and inferior to the lesion abutting the apical pleural surface, there is a third new spiculated noncalcified pulmonary nodule measuring approximately 1.5 x 1 x 1.5 cm. Uncertain whether these are moderately large pulmonary scar tissues or primary lung cancers. Again noted is the extensive, diffuse soft tissue edema and effacement of fat planes involving superf icial and deep spaces of the neck, including subcutaneous fat lateral to the right mandible, right submandibular space, right carotid space, retropharyngeal space diffusely, as well as bilateral laryn x and hypopharynx, which includes effacement of the bilateral piriform sinuses, right greater than left. This includes increased enhancement of pharyngeal mucosal space involving the larynx and hypoph arynx. This is all consistent with postradiation edema and mucositis. Right sternocleidomastoid muscle is absent. In its place, there is ill-defined, diffusely infiltrativ e edematous tissue, containing coarse calcifications, similar to previous CT of 03/13/2020. This is difficult to measure because it is ill-defined, infiltrative, and inseparable from the diffuse edema. It involves the right carotid space and adjacent portion of right posterior cervical space. This was the area of increased FDG uptake on the PET scan of 12/04/2019. It may represent viable malignant, confluent, matted right cervical lymphadenopathy, or could represent infectious cellulitis or severe post radiation changes. Enhancing superficial tissues lateral to that, involving the right lateral skin and subcutaneous tiss ues, are less prominent now than before. This could represent either cellulitis or post radiation changes. Again noted are the atherosclerotic calcifications of bilateral carotid bifurcations, severe on the l eft where there is high-grade stenosis at the proximal internal carotid. IMPRESSION: 1.) Biapical new spiculated pulmonary lesions. Possibilities include new pulmonary scar tissue or new lung cancers. Repeat PET scan may be useful. 2) thickened, ill-defined nonspecific soft tissue density material throughout the right carotid space and adjacent portion of right posterior cervical space, which was FDG-avid on 12/04/2019, has not increased in size since CT of 03/13/2020. Possibilities include severe post radiation changes, viable malignant metastatic cervical lymphadenopathy tissue, or infectious cellulitis. 3) lateral and superficial to that, the very irregular heterogeneously enhancing cutaneous and subcut aneous abnormal tissue has improved. This could represent either infectious cellulitis or post radiation dermatitis. 4) diffuse post radiation edema of the neck. 5) absence of right sternocleidomastoid muscle, presumably postsurgical. 6) no convincing evidence of tumor recurrence at the original cancer side of the right piriform sinus of the hypopharynx. 7) high-grade stenosis of proximal left internal carotid artery due to severe atherosclerosis.
[2020-06-17] MEDS ORDERED: Iopamidol 370 76% 100 ML VIAL ONE (13:48)
== END 2020-06-17 09:43 | disposition home or self-care (01) ==
LOC: CT 09:42
PROVIDERS: ATTEND Internal Medicine Hematology & Oncology
DX: C12 Malignant neoplasm of pyriform sinus (principal); R91.8 Other nonspecific abnormal finding of lung field; I65.22 Occlusion and stenosis of left carotid artery; R60.0 Localized edema; J98.4 Other disorders of lung; Z98.890 Other specified postprocedural states
CPT/HCPCS: 70491; 71260; Q9967

== ENCOUNTER 2020-06-30 04:01 | Inpatient (IN) | payer MEDICARE ==
[2020-06-30 05:05] LABS: Hemoglobin 7.7 g/dL (14.0-18.0); Mean Corpuscular HGB CONC 34.7 g/dL (32.0-36.0); Mean Corpuscular Hemoglobin 31.3 pg (27.0-31.0); Mean Corpuscular Volume 90.1 fL (78.0-98.0); Platelet Count 139 thou/uL (130-400); RBC Distribution Width 16.4 % (11.5-14.5); Red Blood Cell (RBC) Count 2.46 mill/uL (4.70-6.10); White Blood Cell (WBC) Count 1.6 thou/uL (4.8-10.8)
[2020-06-30 05:22] LABS: SARS-CoV-2 NAA Rapid Test Not Detected (NotDetected)
[2020-06-30 05:22] LABS: Band 14 % (5-11); Lymphocytes 10 % (21-51); MDiff Complete? YES; Monocytes 16 % (0-10); Neutrophil 60 % (42-75); Nucleated RBC 2 % (0); Platelet Morphology Comment Appears Adequate
[2020-06-30 05:33] LABS: ALT (SGPT) Less than 7 U/L (8-55); AST (SGOT) 12 U/L (5-34); Albumin 3.4 g/dL (3.4-4.8); Alkaline Phosphatase 62 U/L (40-110); Anion Gap 13 mmol/L (10-20); BUN (Urea Nitrogen) 15 mg/dL (8.4-25.7); Bilirubin, Total 0.6 mg/dL (0.2-1.2); Calc. Creatinine Clearance 0 mL/min (70-130); Calcium 8.1 mg/dL (7.8-10.44); Carbon Dioxide 21 mmol/L (23-31); Chloride 95 mmol/L (98-107); Glucose 101 mg/dL (80-115); Potassium 3.7 mmol/L (3.5-5.1); Protein, Total 6.4 g/dL (5.8-8.1); Sodium 125 mmol/L (136-145)
[2020-06-30] MEDS ORDERED: Cefepime 2 GM VIAL ONE (05:34)
[2020-06-30] MEDS ORDERED: Vancomycin 1 GM/200 ML BAG ONE (06:11)
[2020-06-30] MEDS ORDERED: Midodrine HCl 5 MG TAB PO SCH (08:00)
[2020-06-30] MEDS ORDERED: Dextrose 5 % And 0.9 % NaCl 1,000 ML IV SCH (12:00)
[2020-06-30] MEDS ORDERED: Iopamidol-370 76% 500 ML 1 ML ONE (12:05)
[2020-06-30] MEDS ORDERED: Acetaminophen 325 MG TAB PO PRN (12:21)
[2020-06-30] MEDS ORDERED: Ondansetron ODT 4 MG TAB PO PRN (12:21)
[2020-06-30] MEDS ORDERED: hydrALAZINE 20 MG/ML VIAL SLOW IVP PRN (12:21)
[2020-06-30] MEDS: Sodium Chloride 0.9% 1,000 ML IV SCH (13:01)
[2020-06-30] MEDS: Calcium Carbonate 500 MG ChewTAB PO PRN ×2 (13:02→18:06)
[2020-06-30] MEDS: Nicotine 14 MG PATCH TD SCH (13:04)
[2020-06-30 13:27] LABS: Anion Gap 18 mmol/L (10-20); BUN (Urea Nitrogen) 13 mg/dL (8.4-25.7); Calc. Creatinine Clearance 57 mL/min (70-130); Calcium 8.2 mg/dL (7.8-10.44); Carbon Dioxide 18 mmol/L (23-31); Chloride 97 mmol/L (98-107); Glucose 265 mg/dL (80-115); Potassium 3.7 mmol/L (3.5-5.1); Sodium 129 mmol/L (136-145)
[2020-06-30] MEDS: Cefepime 2 GM in Sodium Chloride 0.9% 100 ML IVPB SCH (18:05)
[2020-06-30] MEDS: Mometasone 100 MCG/Formoterol 5 MCG 120 PUFF INHALER INH SCH (19:02)
[2020-06-30] MEDS: Famotidine 20 MG TAB PO SCH (19:34)
[2020-07-01] MEDS: Sodium Chloride 0.9% 1,000 ML IV SCH ×2 (02:02→16:40)
[2020-07-01] MEDS ORDERED: Vancomycin HCl 1.25 GM in Sodium Chloride 0.9% 250 ML 250 ML IVPB SCH (05:00)
[2020-07-01] MEDS: Cefepime 2 GM in Sodium Chloride 0.9% 100 ML IVPB SCH ×2 (05:08→17:51)
[2020-07-01] MEDS: Mometasone 100 MCG/Formoterol 5 MCG 120 PUFF INHALER INH SCH ×2 (05:57→16:38)
[2020-07-01 06:40] LABS: Band 32 % (5-11); Hemoglobin 7.1 g/dL (14.0-18.0); Hypochromia SLIGHT = 6-15 cells (100X) (0-5/hpf); Lymphocytes 4 % (21-51); MDiff Complete? YES; Mean Corpuscular HGB CONC 34.8 g/dL (32.0-36.0); Mean Corpuscular Hemoglobin 31.7 pg (27.0-31.0); Mean Corpuscular Volume 91.1 fL (78.0-98.0); Mean Platelet Volume 6.9 fL (7.4-10.4); Monocytes 8 % (0-10); Neutrophil 56 % (42-75); Platelet Count 157 thou/uL (130-400); Platelet Morphology Comment Appears Adequate; RBC Distribution Width 16.5 % (11.5-14.5); Red Blood Cell (RBC) Count 2.24 mill/uL (4.70-6.10); White Blood Cell (WBC) Count 4.6 thou/uL (4.8-10.8)
[2020-07-01 06:45] LABS: Anion Gap 11 mmol/L (10-20); BUN (Urea Nitrogen) 13 mg/dL (8.4-25.7); Calc. Creatinine Clearance 78 mL/min (70-130); Calcium 8.4 mg/dL (7.8-10.44); Carbon Dioxide 23 mmol/L (23-31); Chloride 100 mmol/L (98-107); Glucose 120 mg/dL (80-115); Potassium 3.9 mmol/L (3.5-5.1); Sodium 130 mmol/L (136-145)
[2020-07-01] MEDS: Enoxaparin Sodium 40 MG/0.4 ML SYRINGE SC SCH (08:28)
[2020-07-01] MEDS: Famotidine 20 MG TAB PO SCH ×2 (08:28→20:45)
[2020-07-01] MEDS: Nicotine 14 MG PATCH TD SCH (14:26)
[2020-07-01] MEDS ORDERED: Albuterol Sulfate 2.5 mg/3 ml Neb NEB PRN (15:10)
[2020-07-01] MEDS ORDERED: Albuterol 200 PUFF (6.7GM INHALER) INH PRN (18:24)
[2020-07-01] MEDS: Carvedilol 3.125 MG TAB PO SCH (20:45)
[2020-07-01] MEDS: Magnesium Oxide 400 MG TAB PO SCH (20:45)
[2020-07-02] MEDS: VANCOMYCIN 1.25 GM/250 ML BAG 1.25 GM in Premix Bag 1 BAG IVPB SCH (05:39)
[2020-07-02] MEDS: Mometasone 100 MCG/Formoterol 5 MCG 120 PUFF INHALER INH SCH ×2 (05:40→16:51)
[2020-07-02] MEDS: Cefepime 2 GM in Sodium Chloride 0.9% 100 ML IVPB SCH ×2 (06:03→16:50)
[2020-07-02] MEDS: Sodium Chloride 0.9% 1,000 ML IV SCH (08:02)
[2020-07-02] MEDS: Famotidine 20 MG TAB PO SCH ×2 (08:03→20:06)
[2020-07-02] MEDS: Magnesium Oxide 400 MG TAB PO SCH ×2 (08:03→20:06)
[2020-07-02] MEDS: Midodrine HCl 5 MG TAB PO SCH (08:03)
[2020-07-02] MEDS: Enoxaparin Sodium 40 MG/0.4 ML SYRINGE SC SCH (08:03)
[2020-07-02] MEDS ORDERED: Loratadine 10 MG TAB PO PRN (08:54)
[2020-07-02] MEDS ORDERED: Sodium Chloride 0.65% Nasal 44 ML BOT EA NARE PRN (08:54)
[2020-07-02] MEDS ORDERED: Zolpidem Tartrate 5 MG TAB PO PRN (08:54)
[2020-07-02] MEDS ORDERED: HYDROcodone/Acetaminophen 5/325 mg Tablet PO PRN (08:54)
[2020-07-02] MEDS ORDERED: Senokot S 8.6-50 MG TAB PO PRN (08:54)
[2020-07-02] MEDS ORDERED: Benzonatate 100 MG CAP PO PRN (08:54)
[2020-07-02] MEDS ORDERED: Loperamide HCl 2 MG CAP PO PRN (08:54)
[2020-07-02] MEDS ORDERED: Ondansetron PF 4 MG/2 ML Vial IVP PRN (08:54)
[2020-07-02] MEDS ORDERED: Bisacodyl 5 MG TAB PO PRN (08:54)
[2020-07-02] MEDS: Carvedilol 3.125 MG TAB PO SCH (10:10)
[2020-07-02] MEDS: Nicotine 14 MG PATCH TD SCH (11:36)
[2020-07-02 13:25] LABS: #Lymphocytes 0.8 thou/uL (1.20-3.40); #Monocytes 0.6 thou/uL (0.11-0.59); #Neutrophils 3.9 thou/uL (1.40-6.50); %Basophils 0.4 % (0.0-1.0); %Eosinophils 0.5 % (0.0-10.0); %Lymphocytes 14.7 % (21.0-51.0); %Monocytes 10.7 % (0.0-10.0); %Neutrophils 73.7 % (42.0-75.0); Hemoglobin 8.6 g/dL (14.0-18.0); Mean Corpuscular Hemoglobin 31.8 pg (27.0-31.0); Mean Corpuscular Volume 93.7 fL (78.0-98.0); Mean Platelet Volume 7.1 fL (7.4-10.4); Platelet Count 188 thou/uL (130-400); RBC Distribution Width 16.8 % (11.5-14.5); White Blood Cell (WBC) Count 5.2 thou/uL (4.8-10.8)
[2020-07-02 13:52] LABS: Anion Gap 14 mmol/L (10-20); BUN (Urea Nitrogen) 9 mg/dL (8.4-25.7); Calc. Creatinine Clearance 83 mL/min (70-130); Calcium 8.6 mg/dL (7.8-10.44); Carbon Dioxide 24 mmol/L (23-31); Chloride 98 mmol/L (98-107); Glucose 97 mg/dL (80-115); Potassium 3.6 mmol/L (3.5-5.1); Sodium 132 mmol/L (136-145)
[2020-07-02] MEDS: Cepastat Lozenges 1 LOZ PO PRN (20:06)
[2020-07-02] MEDS: GUAIFENESIN SF SOLN 200 MG/10 ML UDCUP PO PRN (20:50)
[2020-07-03] MEDS: Cefepime 2 GM in Sodium Chloride 0.9% 100 ML IVPB SCH (04:58)
[2020-07-03 05:02] LABS: Vancomycin, Trough 9.4 ug/mL
[2020-07-03] MEDS: Mometasone 100 MCG/Formoterol 5 MCG 120 PUFF INHALER INH SCH (06:00)
[2020-07-03] MEDS ORDERED: Vancomycin 1 GM in Premix Bag 1 BAG IVPB SCH (06:00)
[2020-07-03 06:17] VITALS: BMI 19.9
[2020-07-03] MEDS: VANCOMYCIN 1.25 GM/250 ML BAG 1.25 GM in Premix Bag 1 BAG IVPB SCH (06:36)
[2020-07-03] MEDS: Magnesium Oxide 400 MG TAB PO SCH (08:40)
[2020-07-03] MEDS: Enoxaparin Sodium 40 MG/0.4 ML SYRINGE SC SCH (08:40)
[2020-07-03] MEDS: Famotidine 20 MG TAB PO SCH (08:41)
[2020-07-03] MEDS: Midodrine HCl 5 MG TAB PO SCH (08:41)
[2020-07-03] MEDS ORDERED: Folic Acid 1 MG TAB PO SCH (09:00)
[2020-07-03] MEDS ORDERED: Cyanocobalamin (Vitamin B-12) 1,000 MCG TAB PO SCH (09:00)
[2020-07-03] MEDS: GUAIFENESIN SF SOLN 200 MG/10 ML UDCUP PO PRN (09:00)
[2020-07-03] MEDS: Cepastat Lozenges 1 LOZ PO PRN (09:00)
[2020-07-03 11:02] VITALS: TEMP 98
[2020-07-03 11:07] VITALS: BP 90/55
[2020-07-03] MEDS: Nicotine 14 MG PATCH TD SCH (12:06)
[2020-07-04] MEDS ORDERED: Ferrous Sulfate 325 MG TAB PO SCH (08:00)
== END 2020-07-03 15:31 | disposition swing bed (61) | DRG 177 ==
LOC: ERS 04:01 → ERHOLD 08:58 → T4-B 12:22
PROVIDERS: ADMIT Internal Medicine; ATTEND Internal Medicine
DX: J69.0 Pneumonitis due to inhalation of food and vomit (principal); D61.810 Antineoplastic chemotherapy induced pancytopenia; E87.1 Hypo-osmolality and hyponatremia; C79.51 Secondary malignant neoplasm of bone; C78.00 Secondary malignant neoplasm of unspecified lung; I42.9 Cardiomyopathy, unspecified; I50.22 Chronic systolic (congestive) heart failure; I25.10 Atherosclerotic heart disease of native coronary artery without angina pectoris; D50.9 Iron deficiency anemia, unspecified; D63.1 Anemia in chronic kidney disease; I27.21 Secondary pulmonary arterial hypertension; I73.9 Peripheral vascular disease, unspecified; Z20.822 Contact with and (suspected) exposure to COVID-19; M10.9 Gout, unspecified; T45.1X5A Adverse effect of antineoplastic and immunosuppressive drugs, initial encounter; K22.70 Barrett's esophagus without dysplasia; C12 Malignant neoplasm of pyriform sinus; R13.12 Dysphagia, oropharyngeal phase; R19.7 Diarrhea, unspecified; F17.210 Nicotine dependence, cigarettes, uncomplicated; I25.2 Old myocardial infarction; Z92.21 Personal history of antineoplastic chemotherapy; Z80.1 Family history of malignant neoplasm of trachea, bronchus and lung; Z88.8 Allergy status to other drugs, medicaments and biological substances; Z95.5 Presence of coronary angioplasty implant and graft; Y92.9 Unspecified place or not applicable; Z95.828 Presence of other vascular implants and grafts; Z95.810 Presence of automatic (implantable) cardiac defibrillator; J44.9 Chronic obstructive pulmonary disease, unspecified
CPT/HCPCS: 0240U; 36415; 71045; 71275; 80048; 80053; 80202; 83605; 83880; 83930; 83935; 84300; 84484; 85025; 87040; 93005; 94640; 94664; 96365; 96367; J0692; J1650; J3370; J3490; J7050; J7620; Q9967

== ENCOUNTER 2020-11-12 14:21 | Outpatient (CLI) | payer MEDICARE ==
[~2020-11-12 14:21] MED LIST changes: +Iopamidol 370 76% 100 ML VIAL ONE; -Iopamidol-370 76% 500 ML 1 ML ONE
== END 2020-11-12 14:22 | disposition home or self-care (01) ==
LOC: BICCT 14:21
PROVIDERS: ATTEND Internal Medicine Hematology & Oncology
DX: C12 Malignant neoplasm of pyriform sinus (principal); C78.00 Secondary malignant neoplasm of unspecified lung; J98.4 Other disorders of lung; I70.0 Atherosclerosis of aorta; R22.1 Localized swelling, mass and lump, neck
CPT/HCPCS: 70491; 71260; Q9967